=== PATIENT | male | born 1930 | race Caucasian/White ===

== ENCOUNTER 2017-04-20 11:57 | Inpatient (IN) | payer OTHER ==
[~2017-04-20] VITALS: Ht 175.3 cm; Wt 88.5 kg
[~2017-04-20 11:57] MED LIST: ALBUTEROL0.09 MG/A1 INH; ASPIRIN CHILDRE81 MG PO; ASPIRIN81 MG PO; ATORVASTATIN CA20 MG PO; CALCIUM + D3 E1 EACH PO; CELEXA40 M1 PO; DOXYCYCLINE100 M5 PO; ELIQUIS2.5 MG PO; FEROSUL325 M1 PO; FLEXERIL 5MG TAB5 MG PO; KETOCONAZOLE 2120 ML TOP; LEVOTHYROXIN0.137 MG PO; LEVOTHYROXINE88 MCG PO; LIPITOR40 M1 PO; MULTIPLE VITAM1 EAC2 PO; NATURAL IRON65 MG PO; NORVASC5 M1 PO; OMEPRAZOLE D/R20 MG PO; OMEPRAZOLE20 M2 PO; OXYCODONE5 M1 PO; PREDNISONE 20MG20 MG PO; PREDNISONE5 MG PO; PROS5 PO; RANEXA500 M1 PO; TERAZOSIN HCL5 M1 PO; TERAZOSIN HYDRO10 MG PO; TESSALON PERLE100 MG PO; TYLENOL WITH C1 EACH PO; VITAMIN B-121000 MC3 PO; XALATAN 0.50 GTT/1 B OPH
--- NOTE | 2017-04-20 12:13 | ED GENERAL ADULT ---
History of Present Illness General Chief Complaint: General Adult Stated Complaint: WEAKNESS,NAUSEA Source: patient, family Exam Limitations: poor historian Allergies Coded Allergies: rabeprazole (PER PT DOESNT REMEMBER 12/08/15) rosuvastatin (NERVOUS 12/08/15) simvastatin (NERVOUS 12/08/15) oxycodone (Intermediate, ITCHING 12/08/15) Reconcile Medications Apixaban (Eliquis) 2.5 MG TABLET 1 TAB PO BID BLOOD THINNER (Reported) Atorvastatin Calcium (Lipitor) 40 MG TABLET 0.5 TAB PO QPM CHOLESTEROL ( Reported) Calcium Carb & Citrate/Vit D3 (Calcium + D3 ER Tablet) 600 MG CALCIUM-500 UNIT TABLET.ER 1 TAB PO QPM SUPPLEMENT (Reported) Citalopram Hydrobromide (Celexa) 40 MG TABLET 1 TAB PO DAILY MENTAL HEALTH ( Reported) Cyanocobalamin (Vitamin B-12) 1,000 MCG TABLET 1 TAB PO DAILY VITAMIN SUPPORT (Reported) Ferrous Sulfate (Ferosul) 325 MG (65 MG IRON) TABLET 1 TAB PO DAILY SUPPLEMENT (Reported) Finasteride 5 MG TABLET 1 TAB PO DAILY PROSTATE (Reported) Furosemide 20 MG TABLET 1 TAB PO DAILY WATER RETENTION (Reported) Levothyroxine Sodium 88 MCG TABLET 2 TAB PO DAILY AC THYROID (Reported) Multivitamin (Multiple Vitamins) 1 EACH TABLET 1 TAB PO QPM SUPPLEMENT ( Reported) Omeprazole 20 MG CAPSULE.DR 1 CAP PO DAILY GI (Reported) Terazosin HCl 5 MG CAPSULE 1 CAP PO QPM BPH (Reported) Triage Nurses Notes Reviewed? yes Onset: Abrupt Duration: hour(s): Timing: recent history HPI: 04/20/17 12:36 PM 87-year-old man presents to the emergency department complaining of vomiting. The patient's son had gone away. When he came home he said he is sure that the patient's medications got not taken accurately. He seemed to be in his usual state of health however until this morning when he woke up he woke up unusually early. And then in the mid afternoon he started vomiting. He denies headache chest pain abdominal pain or other complaints. He is on Eliquis for A. fib. (YOSHI RAMOS DO) Vital Signs & Intake/Output Vital Signs & Intake/Output Vital Signs Date Time Temp Pulse Resp B/P B/P Pulse O2 O2 Flow FiO2 Mean Ox Delivery Rate 04/20 1954 97.8 65 20 160/70 95 Room Air 04/20 1935 97.5 55 18 147/68 96 Room Air Room Air 04/20 1828 97.3 57 18 152/48 94 Room Air 04/20 1635 97.4 56 18 118/60 96 Room Air Room Air 04/20 1452 97.5 53 18 129/60 94 Room Air Room Air 04/20 1310 48 18 181/76 96 Room Air 04/20 1213 97.2 48 20 194/83 99 Room Air Past History Travel History Traveled to [place] past 21 day No Medical History Any Pertinent Medical History? 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 No (YOSHI RAMOS DO) Review of Systems Review of Systems Constitutional: Reports: no symptoms. EENTM: Reports: no symptoms. Respiratory: Denies: short of breath. Cardiovascular: Denies: chest pain. GI: Reports: see HPI, vomiting. Denies: abdominal pain. Genitourinary: Reports: no symptoms. Musculoskeletal: Reports: no symptoms. Skin: Reports: no symptoms. Neurological/Psychological: Reports: no symptoms. Denies: headache. Hematologic/Endocrine: Reports: no symptoms. Immunologic/Allergic: Reports: no symptoms. All Other Systems: Reviewed and Negative (YOSHI RAMOS DO) Physical Exam Physical Exam General Appearance: alert, awake, anxious, moderate distress Head: atraumatic, normal appearance Eyes: Bilateral: normal appearance, PERRL, EOMI. Ears, Nose, Throat: normal pharynx, normal ENT inspection Neck: normal inspection, supple, full range of motion Respiratory: normal breath sounds, chest non-tender, no respiratory distress Cardiovascular: regular rate/rhythm Peripheral Pulses: 4+ radial (R), 4+ radial (L) Gastrointestinal: soft, non-tender Back: normal range of motion Extremities: no edema Neurologic/Psych: no motor/sensory deficits, awake, alert, oriented x 3 Skin: intact, normal color, warm/dry Core Measures ACS in differential dx? Yes ASA ordered for poss ACS? Yes-ordered CVA/TIA Diagnosis: No Severe Sepsis Present: No Septic Shock Present: No (YOSHI RAMOS DO) Progress Differential Diagnoses I considered the following diagnoses in my evaluation of the patient: [Non-ST segment elevation PA, and intestinal obstruction, pulmonary embolism] Initial ED EKG: BRADYCARDIA, LBBB, 1ST DEGREE AV BLOCK (YOSHI RAMOS DO) Plan of Care: Orders Procedure Date/time Status TROPONIN LEVEL 04/22 1535 Active Heart Healthy Diet 04/21 B Active CBC WITHOUT DIFFERENTIAL 04/21 0600 Active BASIC ELECTROLYTES PLUS BUN&CR 04/21 0600 Active TROPONIN LEVEL 04/21 0300 Active LIPID PANEL 04/21 0300 Active EKG 04/21 0300 Active TROPONIN LEVEL 04/20 2100 Active EKG 04/20 2100 Active Vital Signs 04/20 2016 Active Teach/Educate 04/20 2016 Active Pain Treatment and Response 04/20 2016 Active Nutritional Intake, Monitor 04/20 2016 Active Isolation 04/20 2016 Active Intake & Output 04/20 2016 Active Patient Care Conference 04/20 2016 Active Activity/Ambulation 04/20 2016 Active Change service to 04/20 1956 Active Code Status 04/20 1952 Active Change service to 04/20 1848 Active Pathway - chart 04/20 1833 Active Patient Data 04/20 1811 Active Intake & Output 04/20 1807 Active Patient Data 04/20 1738 Active EKG 04/20 1717 Active Admit to inpatient 04/20 1651 Active Vital Signs 04/20 1651 Active Code Status 04/20 1651 Complete TROPONIN LEVEL 04/20 1535 Complete EKG 04/20 1535 Active THYROID STIMULATING HORMONE 04/20 1245 Complete FREE T4 04/20 1245 Complete VITAMIN B12 04/20 1245 Complete Saline Lock 04/20 1244 Active TROPONIN LEVEL 04/20 1242 Complete COMPREHENSIVE METABOLIC PANEL 04/20 1242 Complete CBC WITHOUT DIFFERENTIAL 04/20 1242 Complete EKG 04/20 1200 Active TRC EVALUATION (GEN) 04/20 UNK Active Pathway - chart 04/20 UNK Active House Staff 04/20 UNK Active Lab Add-on Test 04/20 UNK Active VTE Mechanical Prophylaxis 04/20 UNK Active Vital Signs 04/20 UNK Active MISTAKE 04/20 UNK Active Precautions 04/20 UNK Active Intake & Output 04/20 UNK Active ECHOCARDIOGRAM 04/20 UNK Active Current Medications Sig/Lamar Start time Last Medication Dose Stop Time Status Admin Aspirin 81 MG DAILY 04/21 1000 AC (Aspirin) Calcium/Vitamin D 500 MG DAILY 04/21 1000 AC (Oscal-D 500MG (Osyter Shell)) Citalopram 40 MG DAILY 04/21 1000 AC Hydrobromide (Celexa) Cyanocobalamin 1,000 MCG DAILY 04/21 1000 AC (Vitamin B12) Ferrous Sulfate 325 MG DAILY 04/21 1000 AC (Feosol) Finasteride 5 MG DAILY 04/21 1000 AC (Proscar) Furosemide 20 MG DAILY 04/21 1000 AC (Lasix) Omeprazole 20 MG DAILY 04/21 1000 AC (Prilosec) Levothyroxine Sodium 0.176 MG DAILY AC 04/21 0700 AC (Synthroid) Apixaban 2.5 MG BID 04/20 2200 AC (Eliquis) Atorvastatin Calcium 20 MG QPM 04/20 2200 AC (Lipitor) Doxazosin Mesylate 2 MG AT BEDTIME 04/20 2200 AC (Cardura) Multivitamins 1 TAB QPM 04/20 2200 AC Therapeutic (Theragran-M Vitamins Tabs) Trimethobenzamide HCl 200 MG TID PRN 04/20 2015 AC 04/20 (Tigan) 2045 Acetaminophen 650 MG Q6P PRN 04/20 1845 AC (Tylenol) Sodium Chloride 1,000 ML ONCE ONE 04/20 1800 AC 04/20 (Normal Saline 0.9%) 04/21 0039 1806 Laboratory Tests 04/20/17 2055: Troponin I Pending 04/20/17 1514: Troponin I 0.18 *H 04/20/17 1245: Anion Gap 10, Estimated GFR 52 L, BUN/Creatinine Ratio 19.2, Glucose 133 H, Calcium 9.2, Total Bilirubin 1.3, AST 24, ALT 25, Alkaline Phosphatase 109, Troponin I 0.05, Total Protein 6.8, Albumin 3.8, Globulin 3.0, Albumin/Globulin Ratio 1.3, Vitamin B12 > 1000 H, TSH 0.161 L, Free T4 2.50 H, CBC w Diff NO MAN DIFF REQ, RBC 3.54 L, MCV 96.8 H, MCH 31.8 H, RDW 14.4, MPV 9.3, Gran % 76.5 H, Lymphocytes % 15.3 L, Monocytes % 6.9, Eosinophils % 0.9, Basophils % 0.4, Absolute Granulocytes 8.3 H, Absolute Lymphocytes 1.7, Absolute Monocytes 0.7 H, Absolute Eosinophils 0.1, Absolute Basophils 0, PUBS MCHC 32.9 L Departure Departure Disposition: STILL A PATIENT Condition: Stable Clinical Impression Primary Impression: Acute non-ST segment elevation myocardial infarction Secondary Impressions: Vomiting Referrals: JENELLE WORLEY,ILDA Enriquez (PCP/Family) Departure Forms: Customer Survey General Discharge Information Admission Note Spoke With: LAURA ACOSTA MD Documentation of Exam: Documentation of any treatments & extenuating circumstances including Concerns Regarding Discharge (functional status, medication knowledge or non-compliance, living conditions, etc.) that warrant an admission rather than observation: [The patient needs to be admitted to follow the serum troponin, inpatient echocardiogram, cardiology consultation, cardiac monitoring] 04/20/[address] Acosta who initially accepted the patient for telemetry admission. He later called me back and informed me he was unable to admit the patient due to his relationship with [place]. I spoke with the on-call contract administration specialist Dr. Lennon who said he would consult but to please admit the patient to medicine. I subsequently spoke with who accepted the patient for admission. We discussed his ongoing vomiting, the widened pulse pressure, and the small pericardial effusion. He will be held in the ED prior to going up to telemetry until Dr. Cartwright evaluates him in the emergency department. I did order a right upper quadrant ultrasound. He will need an in patient echocardiogram (YOSHI RAMOS DO) Critical Care Note Critical Care Note Critical Care Time: 30-74 min (YOSHI RAMOS DO)
[2017-04-20 12:52] LABS: ABSOLUTE BASOPHIL COUNT 0 /CUMM (0.0-0.2); ABSOLUTE EOSINOPHIL COUNT 0.1 /CUMM (0.0-0.7); ABSOLUTE GRANULOCYTE CT 8.3 /CUMM (1.4-6.5); ABSOLUTE LYMPH COUNT 1.7 /CUMM (1.2-3.4); ABSOLUTE MONOCYTE COUNT 0.7 /CUMM (0.10-0.60); BASOPHIL % 0.4 % (0.0-2.0); EOSINOPHIL % 0.9 % (0-5); GRANULOCYTE % 76.5 % (42.2-75.2); HEMATOCRIT 34.3 % (42-52); MEAN CORPUSCULAR HGB 31.8 PG (27.0-31.0); MEAN CORPUSCULAR HGB CONC 32.9 G/DL (33.0-37.0); MEAN CORPUSCULAR VOLUME 96.8 FL (80.0-94.0); MEAN PLATELET VOLUME 9.3 FL (7.4-10.4); PLATELET COUNT 171 /CUMM (130-400); RBC DISTRIBUTION WIDTH 14.4 % (11.5-14.5); RED BLOOD CELL CT 3.54 /CUMM (4.70-6.10); WHITE BLOOD CELL COUNT 10.8 /CUMM (4.8-10.8)
--- NOTE | 2017-04-20 13:11 | RADIOLOGY REPORT ---
EXAMINATION: XR PORTABLE CHEST CLINICAL INFORMATION: Vomiting evaluate for aspiration COMPARISON: CT chest November 2016 chest x-ray January 2017. TECHNIQUE: Portable frontal view of the chest was obtained. FINDINGS: Lungs clear. Cardiac silhouette unremarkable. Large hiatal hernia unchanged. Pulmonary vascularity normal. Calcification of the dorsal aorta. IMPRESSION: No acute disease. Large hiatal hernia unchanged
--- NOTE | 2017-04-20 14:13 | CT SCAN REPORT ---
EXAMINATION: CT ABDOMEN AND PELVIS WITHOUT CONTRAST CLINICAL INFORMATION: Vomiting to rule out obstruction. COMPARISON: Abdominal CT 08/15/2015 TECHNIQUE: Multidetector volumetric imaging was performed from the superior aspect of the liver through the pubic symphysis. Sagittal and coronal reformatted images were obtained on the technologist's workstation. FINDINGS: The lung bases are clear. Small pericardial effusion. Limited evaluation of the unenhanced liver, spleen, adrenal glands, and gallbladder reveals no definite abnormality. There is a stable appearing elongated cyst adjacent to the uncinate process, most likely a pseudocyst. The kidneys are symmetric in size without evidence of hydronephrosis or nephrolithiasis. As noted on the prior study there is a very large hiatal hernia the entire stomach an gastroduodenal junction located within the thoracic cavity. The large and small bowel are normal in caliber without evidence of mechanical obstruction. No focal inflammatory changes adjacent to the large or the small bowel. The appendix is normal. There is no free air and there is no intra-abdominal free fluid. No mesenteric or retroperitoneal adenopathy. There is aortoiliac atherosclerotic calcification Bladder diverticula along the upper aspect of the bladder have increased in size. Mild diffuse gallbladder wall thickening again noted. Prostate gland is elongated in the craniocaudal dimension. No pelvic adenopathy. No free fluid within the pelvis. There are no acute osseous abnormalities. Multilevel lumbar spondylosis. Small fat-containing umbilical hernia. IMPRESSION: - Stable appearing very large hiatal hernia with the entire stomach and the gastroduodenal junction located within the thoracic cavity. There is no bowel obstruction and there are no inflammatory changes surrounding the large or the small bowel - There is a stable appearing elongated cyst adjacent to the uncinate process, most likely a pseudocyst. - Bladder diverticula along the upper aspect of the bladder have increased in size. Mild diffuse gallbladder wall thickening again noted. Prostate gland is elongated in the craniocaudal dimension. - Small pericardial effusion. - Diverticulosis without evidence of acute diverticulitis.
[2017-04-20] MEDS ORDERED: FUROSEMIDE20 M1 PO (14:21)
[2017-04-20] MEDS ORDERED: ELIQUIS2.5 M1 PO (14:23)
[2017-04-20] MEDS ORDERED: FINASTERIDE5 M1 PO (14:25)
--- NOTE | 2017-04-20 18:00 | History & Physical ---
JJ WORELY,DEVYN 04/20/17 2749: General Information and HPI MD Statement: I have seen and personally examined GILES RIVERO and documented this H&P. The patient is a 87 year old M who presented with a patient stated chief complaint of []. Source of Information: patient, family, old records History of Present Illness: 87-year-old gentleman with PMH of hypertension, hyperlipidemia, hypothyroidism , BPH, hiatal hernia and chronic back pain , Afib on ELiquis, He presents to the emergency department complaining of repeated vomiting, nausea and weakness.The patient's son was a way for a while and when he came back he found out that the patient did not take his medication accurately .This morning around 9 AM, when the patient was on his way to a follow up visit to his urologist, the patient started to c/o of nausea and had 4 episodes of non bloody bilious vomiting. the patient also felt weak, lightheaded and sweaty.Also the patient reports feeling bloated for over one day. and He denies any accompanying diarrhea, abdominal pain, headache, or palpitation.The patient is seeing Dr. Horton(cardiology) for chest painn which was suspected to be due to angina but was found to be due to hiatal hernia. that was the reason why his Amlodipine and Ranexa were discontinued. The patient reports that he had finished 2 full courses of Amoxicillin ( last dose was taken last Sunday) for the treatment of UTI. his urinary symptoms of burning micturition had significantly improved after antibiotics vitals on admission: BP 118/60, RR: 18, Pulse : 56, saturating 96 on room air Allergies/Medications Allergies: Coded Allergies: rabeprazole (PER PT DOESNT REMEMBER 12/08/15) rosuvastatin (NERVOUS 12/08/15) simvastatin (NERVOUS 12/08/15) oxycodone (Intermediate, ITCHING 12/08/15) Home Med list Apixaban (Eliquis) 2.5 MG TABLET 1 TAB PO BID BLOOD THINNER (Reported) Atorvastatin Calcium (Lipitor) 40 MG TABLET 0.5 TAB PO QPM CHOLESTEROL ( Reported) Calcium Carb & Citrate/Vit D3 (Calcium + D3 ER Tablet) 600 MG CALCIUM-500 UNIT TABLET.ER 1 TAB PO QPM SUPPLEMENT (Reported) Citalopram Hydrobromide (Celexa) 40 MG TABLET 1 TAB PO DAILY MENTAL HEALTH ( Reported) Cyanocobalamin (Vitamin B-12) 1,000 MCG TABLET 1 TAB PO DAILY VITAMIN SUPPORT (Reported) Ferrous Sulfate (Ferosul) 325 MG (65 MG IRON) TABLET 1 TAB PO DAILY SUPPLEMENT (Reported) Finasteride 5 MG TABLET 1 TAB PO DAILY PROSTATE (Reported) Furosemide 20 MG TABLET 1 TAB PO DAILY WATER RETENTION (Reported) Levothyroxine Sodium 88 MCG TABLET 2 TAB PO DAILY AC THYROID (Reported) Multivitamin (Multiple Vitamins) 1 EACH TABLET 1 TAB PO QPM SUPPLEMENT ( Reported) Omeprazole 20 MG CAPSULE.DR 1 CAP PO DAILY GI (Reported) Terazosin HCl 5 MG CAPSULE 1 CAP PO QPM BPH (Reported) Past History Travel History Traveled to [place] past 21 day No Medical History Neurological: NONE EENT: NONE Cardiovascular: AFIB, hypertension, hyperlipidemia, CARDIAC BLOCKAGES Respiratory: NONE Gastrointestinal: GERD, hiatal hernia Hepatic: NONE Renal: PROSTATITIS Musculoskeletal: NONE Psychiatric: NONE Endocrine: hyperthyroidism Blood Disorders: NONE 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 EENTM: Denies: no symptoms. Cardiovascular: Denies: no symptoms. Respiratory: Reports: cough, short of breath. GI: Reports: bloating, nausea, vomiting. Genitourinary: Reports: see HPI. Neurological/Psychological: Denies: no symptoms. Exam & Diagnostic Data Last 24 Hrs of Vital Signs/I&O Vital Signs Date Time Temp Pulse Resp B/P B/P Pulse O2 O2 Flow FiO2 Mean Ox Delivery Rate 04/20 1954 97.8 65 20 160/70 95 Room Air 04/20 1935 97.5 55 18 147/68 96 Room Air Room Air 04/20 1828 97.3 57 18 152/48 94 Room Air 04/20 1635 97.4 56 18 118/60 96 Room Air Room Air 04/20 1452 97.5 53 18 129/60 94 Room Air Room Air 04/20 1310 48 18 181/76 96 Room Air 04/20 1213 97.2 48 20 194/83 99 Room Air Intake & Output 04/20 1600 04/20 0800 04/20 0000 Intake Total Output Total Balance Patient 200 lb Weight Physical Exam General Appearance Alert, Oriented X3, Cooperative, No Acute Distress Skin No Rashes, No Breakdown, No Significant Lesion Skin Temp/Moisture Exam: Warm/Dry HEENT Atraumatic, PERRLA, EOMI, Mucous Membr. moist/pink Neck Supple, No JVD Cardiovascular Regular Rate, Normal S1, Normal S2, ejection systolic murmur in aortic area Lungs Clear to Auscultation, Normal Air Movement Abdomen Normal Bowel Sounds, Soft, No Tenderness Neurological Normal Speech, Strength at 5/5 X4 Ext, Normal Tone, Sensation Intact Assessment/Plan Assessment: 87-year-old gentleman with PMH of hypertension, hyperlipidemia, hypothyroidism , BPH, hiatal hernia and chronic back pain , Afib on ELiquis, He presents to the emergency department complaining of repeated vomiting, nausea and weakness.The patient's son was a way for a while and when he came back he found out that the patient did not take his medication accurately .This morning around 9 AM, when the patient was on his way to a follow up visit to his urologist, the patient started to c/o of nausea and had 4 episodes of non bloody bilious vomiting. the patient also felt weak, lightheaded and sweaty.Also the patient reports feeling bloated for over one day. and He denies any accompanying diarrhea, abdominal pain, headache, or palpitation.The patient is seeing Dr. Horton(cardiology) for chest painn which was suspected to be due to angina but was found to be due to hiatal hernia. that was the reason why his Amlodipine and Ranexa were discontinued. The patient reports that he had finished 2 full courses of Amoxicillin ( last dose was taken last Sunday) for the treatment of UTI. his urinary symptoms of burning micturition had significantly improved after antibiotics vitals on admission: BP 118/60, RR: 18, Pulse : 56, saturating 96 on room air Pertininent labs: H&H: 11.3/34.3, wbcs 10,800, BUN: 25, Cr: 1.3, Na 141, K 4.4, trops:0.05, 0.18 EKG: NSR, 1st degree heart block. CXR: Large hiatal hernia which is unchanged from before. CT abdomen and pelvis: large hiatal hernia with the entire stomach in the thoracic cavity, stable appearing enlarged cyst near the uncinate process, most likely pseudocyst. no bowel obstruction, bladder diverticulum, small pericardial effusion, enlarged prostste. U/S : no cholilithiasis or cholicystitis. #ACS Vs Vasovagal attacks: -the patient nausea, vomting and lightheadedness might be due to either vasovagal or atypical presentation of ACS. -continue to trend troponin and EKG, if trops rises might need to start IV Heparin - echo to assess the wall motion abnormalities. - continue home meds of Eliquis , Aspirin. - Tigan tid PRN - Cardiology consult appreciated. # Hiatal Hernia: Keep on aspiration precaution. - GIT consult appreciated. - continue home med of Omeprazole. #History of A fib: continue home meds of ELiquis. # Hypothyroidism: - check TSH and Ft4. continue home meds of Levothyroxin 0.176 mg. # BPH: continue home meds of Fenasteride and Terazocin. Code: DNR/DNI Diet: Heart healthy DVT prophylaxix: pharmacological( eliquis) As Ranked By This Provider Problem List: 1. Hypothyroid 2. BPH (benign prostatic hyperplasia) 3. Hypertension 4. Hiatal hernia 5. Macrocytic anemia 6. Elevated troponin 7. Family history of colon cancer Core Measures/Miscellaneous Acute Coronary Syndrome ACS Diagnosis: Yes Last Known EF % 60 LILIBETH/ARB For EF <40% No No LILIBETH/ARB d/t EF>60 ASA W/I 24hr of admit Yes Beta-Hernando W/I 24hrs No No Beta-Hernando d/t Bradycardia Currently on Statin Yes Cerebrovascular Accident CVA/TIA Diagnosis: No Congestive Heart Failure CHF Diagnosis: No VTE (View Protocol) VTE Risk Factors: Age > 40 [facility] prophylaxis d/t: No contraindications No VTE Pharm Prophylaxis d/t: No contraindications VTE Diagnosis: No VTE Type: NONE VTE Confirmed by (Test): NONE Sepsis (View Protocol) Severe Sepsis Present: No Septic Shock Septic Shock Present: No Miscellaneous Documentation Attending Case Discussed With: ROSSY HAMMONDS MDAdalid Primary Care Physician: JENELLE WORLEY,ILDA Enriquez Patient sees these Specialists 1.cardiology 2.Urology 3.Gastroentrology Level of Patient Care: Telemetry MUKUND WHITMAN 04/20/17 1810: Resident Review Statement Resident Statement: examined this patient, discussed with leadership program internship, agreed with leadership program internship, discussed with family, reviewed EMR data (avail), discussed with nursing , discussed with case mgmt, reviewed images, amended to note Other Findings: A 70-year-old male with a past medical history of coronary artery disease, BPH, depression, hypothyroidism, atrial fibrillation on Eliquis, presents to the ER with chief complaint of nausea, vomiting. According to the patient and his son Mr. Garrett was in his usual state of health up until this morning at 9 AM when he was going for routine office visit to his urologist for urinary tract infection. He states that he woke up fine this morning at around 7 and around 1930 he was getting out of the car to go to doctor's office when he had the sudden onset of nausea, episode of nonbloody vomitus, lightheadedness, became diaphoretic, however, did not pass out, denies any chest discomfort, palpitations, loss of consciousness, chest pain, any heartburn-like symptoms. He does endorse having some mild shortness of breath. He denies any dyspnea on exertion, however orthopnea cannot be evaluated as he usually uses 2 pillows to sleep at night because of his chronic hiatal hernia. He denies any fever, chills, diarrhea, constipation however does endorse bloating of his abdomen and states that his last bowel movement was yesterday and he may be passing gas. He denies any abdominal discomfort. He endorses bringing up whatever he had for breakfast this morning which comprised of waffles and muffin. He denies any blood in his vomitus. He denies any history of heart attack in the past. He states that he follows up with Dr. Horton in [place] who is his social service agency director and was taken off of Ranexa and amlodipine back in November after his angina-like symptoms at that time were attributed to his hernia. Of note patient has never had a cardiac cath. The patient lives by himself with his son helping him out with his medications however he was away on vacation and states that his dad may have been taking his medications incorrectly as the medication box did not really have metastases aligned in the manner in which he used to take. He is pretty much independent in terms of his ADLs. Of note patient has been experiencing some burning micturition going on for the past 4 weeks. He is was prescribed amoxicillin for about 7 days with 2 courses H the last finishing this past Sunday. He was a former smoker and quit smoking about 55 years ago. He does endorse having a couple of hero on a daily basis. He denies any recreational drug use. He denies being allergic to any medication except Percocet which gives him slight nausea. Of note there is no history of early cardiac in the family. Patient denies having any similar symptoms in the past. Vitals at the time of admission blood pressure 118/60, respiratory rate of 18, pulse 56, afebrile saturating 96% on room air. On physical exam he is alert, oriented 3 and in no acute distress sitting comfortably in bed. HEENT revealed PERRLA, moist mucous membranes. Examination of the neck did not reveal an elevated JVD, cervical lymphadenopathy. Cardiovascular exam pertinent for normal S1, S2, no grade 3 x 6 holosystolic murmur heard best at the right sternal border. Respiratory exam revealed chest clear to auscultation bilaterally. Abdominal exam reveals an abdomen that was distended, soft, nontender with normal bowel sounds, Saini's negative, CVA tenderness negative. Examination of the lower extremities revealed trace edema. Neuro exam was grossly unremarkable. Labs pertinent for macrocytic anemia with an H&H of 11.3/34.3, platelet count 1 71,000, normal white blood cell count of 10,800. Serum chemistries revealed a sodium of 141, potassium of 4.4, BUN 25 mg to 1.3. Serum glucose is elevated to 133. LFTs unremarkable with an AST/AST of 24/25, total bili 1.3. First set of troponin 0.05 with second set 0.18. Chest x-ray was done to evaluate for aspiration but showed no acute disease, large hiatal hernia that was unchanged. EKG showed NSR, HR: 85, 1st degree AV block, LBBB (unchanged from prior), no ST- T changes CT abdomen and pelvis was done which showed stable appearing very large hiatal hernia with entire stomach and gastroduodenal junction located within the thoracic cavity, no bowel obstruction and no inflammatory changes surrounding the small bowel, stable appearing elongated cyst adjacent to the uncinate process most likely a pseudocyst with bladder diverticula along the upper aspect of the bladder. Mild diffuse gallbladder wall thickening is noted, prostate gland is elongated. There is small pericardial effusion with diverticulosis without any evidence of acute diverticulitis. Echocardiogram in May 2015 showed normal left ventricular ejection fraction more than 60% with normal wall motion. In the ER received 300 mg of when necessary aspirin, Reglan 10 mg IV 1, Zofran 4 mg IV 2 and normal saline thousand mls 1. Assessment and plan Admit patient to telemetry given her elevated troponins #Diaphoretic episode Most likely vasovagal the mediated (given hiatal hernia) versus acute coronary syndrome (given elevated troponins and atypical-like symptoms) Will rule out ACS with troponins and EKG at 9 PM and 3 AM Echocardiogram to rule out regional wall motion abnormalities Continue on Eliquis for now Follow-up troponin at 9 PM. If continues to elevate we'll consider starting on heparin Cardiology consult with Rasheed Marshall MD Continue aspirin 81 mg daily Tigan 3 times a day when necessary for nausea #Hiatal hernia Maintain on aspiration precautions GI consult with Dr. Betts in a.m. Ultrasound abdomen to rule out for cholelithiasis given vomiting. Of note patient's Saini's sign is negative. Continue omeprazole 40 mg daily #History of atrial fibrillation Continue on Eliquis 2.5 mg twice a day #BPH Continue on finasteride and terazosin. #Hypothyroidism Follow-up TSH and free T4 Continue on levothyroxine 0.176 mg daily - DVT prophylaxis Eliquis 2.5 twice a day Diet Heart healthy CODE STATUS DNR/DNI CASSIUS WORLEY, [facility] 04/20/171956: Attending MD Review Statement Attending Statement Attending MD Statement: examined this patient, discuss w/resident/PA/PLANNING SPECIALIST, agreed w/resident/PA/PLANNING SPECIALIST, discussed with family Attending Assessment/Plan: 87 yo M with h/o Pafib on eliquis, HTN, HLD, s/p radioactive iodine for hyperthyroidism currently on replacement, CKD stage 3B, GERD, hiatal hernia, BPH , intraductal papillary mucinous neoplasm of pancreasis brought in for evaluation of an episode of nausea, vomiting, diaphoresis and lightheadedness. This morning around 9 am, patient was at Urologist office (for evaluation of recurrent UTI, recently treated with Amox) when he suddenly felt nauseous, was diaphoretic, felt lightheaded and vomited. His son rescheduled the appointment and took patient home. While at home, patient continued to feel lightheaded and vomited a few times, so his son brought him to the ER for further evaluation. Patient reports eating a small waffle and cup of coffee this AM. He has longstanding h/o hiatal hernia, was evaluated by GI, suggested surgery but was not considered a candidate per Cardiology. Patient has been following aspiration precautions (uses 2 pillows at night), eats small meals and avoid heavy meals before bedtime. Last EGD: (2013): Large hiatal hernia, large gastric polyps. According to information provided by family: He had a stress test few years ago that was ?abnormal and Direct Marketing Executive (Dr. Horton @ [place]) did not suggest cardiac cath given his renal dysfunction. Patient has had c/o exertional dyspnea and was evaluated by Dr. York, who suggested that it was cardiac rather than pulmonary in origin. Patient was placed on Ranexa for angina-equivalent symptom - exertional dyspnea, but recently was taken off it as there was no improvement in his symptoms. Patient has also been on lasix for CHF (not sure if diastolic or systolic). Vitals are stable except for bradycardia (48- 55) and hypertension. Labs: macrocytic anemia, H/H 11.3/ 34.3, BUN 24, creat 1.3, glucose 133, trop 0.05 --> 0.18 --> 0.31, B12 > 1000, TSH 0.161, Free T4 2.50. CXR: lungs clear, large hiatal hernia. CT abd/pelvis: large hiatal hernia with entire stomach and gastroduodenal junction in thoracic cavity, cyst adjacent to uncinate process stable, bladder diverticula, mild diffuse GB wall thickening, small pericardial effusion, diverticulosis. EKG: sinus bradycardia, LBBB, first degree AV block ( chronic), no new changes. RUQ ultrasound: no e/o cholelithiasis or cholecystitis. Echo (2015): EF 60%. 1. Nausea, vomiting, diaphoresis with lightheadedness in the setting of large hiatal hernia (no cholelithiasis or cholecystitis), with elevated troponins likely demand ischemia vs. NSTEMI. Cannot rule out symptomatic bradycardia (HR was in 40-50's), patient not on beta blockers. Patient is on synthroid replacement after HALL for hyperthyroidism, TSH is low and free T4 is high indicating need to cut back on synthroid. Tele admit, chech orthostats, monitor for arrhythmias, trend troponin and monitor for EKG changes, obtain Echo, patient is anticoagulated on eliquis, will continue eliquis, aspirin given in ER, will continue, Cardio consult (Dr. Marshall covering for Dr. Acosta (who covers Dr. Horton's patients)). Maintain aspiration precautions. GI (Dr. Betts) has evaluated patient. Patient was not deemed a candidate for hiatal hernia surgery by Dr. Leo previously. Will continue symptomatic treatment with anti-emetics and IV fluids. Given his age and co-morbidities, no urgent intervention needed, will hold off on surgical evaluation for HH. Continue PPI. Will cut back on synthroid dose from 0.176 to 0.150 mg, need to recheck TFTs in 4 weeks. Obtain Endo consult in AM. DVT ppx Eliquis. DNR/I. Plan was discussed with patient, family (2 sons and granddaughter) at bedside.
[2017-04-20 19:54] VITALS: BP 160/70
--- NOTE | 2017-04-20 20:02 | ULTRASOUND REPORT ---
EXAMINATION: US ABDOMEN LIMITED CLINICAL INFORMATION: Vomiting. Rule out cholelithiasis.. COMPARISON: CT of the abdomen and pelvis from earlier the same day TECHNIQUE: Real-time imaging of the right upper quadrant abdominal viscera. Per technologist note the exam was limited due to body habitus and overlying bowel gas. FINDINGS: PANCREAS: Nonvisualized. LIVER: The left lobe of the liver could not be visualized due to overlying bowel gas. No gross abnormalities in the right lobe of the liver. GALLBLADDER: Normal. The gallbladder is physiologically distended without evidence of stones, sludge, polyps, wall thickening or pericholecystic fluid. COMMON BILE DUCT: Normal in caliber measuring 0.4 cm in diameter. RIGHT KIDNEY: Normal. No hydronephrosis. No renal calculi or focal parenchymal lesions. The kidney measures 9.8 cm in maximum dimension. FREE FLUID: None. IMPRESSION: Limited examination without evidence of cholelithiasis or cholecystitis.
--- NOTE | 2017-04-20 22:09 | Cons- Gastroenterology ---
General Information and HPI Consulting Request Date of Consult: 04/20/17 Requested By: ANDREIA WORLEY,[facility] Reason for Consult: Evaluate hiatal hernia, nausea in setting of mild troponin leak (*Please note, the patient was previously evaluated for hiatal hernia repair by Dr. Leo & felt to be too high risk). Source of Information: patient, old records Exam Limitations: no limitations History of Present Illness: Mr. Musa Aguilar is an 87-year-old male, DNR/DNI, ASHD, HTN, HLD, hyperT4 (post HALL), BPH, chronic back pain, renal insufficiency, PAF on Eliquis, last seen in the office 09/13/2015, with a history of IPMN at the uncinate process of the pancreas, post endoscopic ultrasound x2 which have been stable, last one 2011, per Dr. Orr. He previously had normal CA19-9 levels. 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 He is followed by numerous physicians including Dr. Rob Black for primary care in [place], [place]. He also sees Dr. Ruby Jacobs at the [facility] for primary care. Additionally, he sees Dr. Brittany Eduardo for rheumatology, Dr. Leo for surgery, and has switched to Dr. Murali Horton for cardiology. He sees a urologist, whose name he can't recall. He has had endoscopic ultrasounds by Dr. Ekaterina Orr at [place], as previously stated. *He was just admitted to Dr. Cartwright's service at [place] 04/20/17, with Dr. Marshall to consult for cardiology. The patient presented to the [place] ER at 11:57 a.m., HTN, bradycardic, afebrile, with BP 194/83, P 48, T 97.2, R 20, T 97.2, O2 sat RA 99%, post n & v, treated with IV Zofran & ASA, as * troponin 0.05 -> 0.18 -> 0.31. Apparently, his son was away and he did not take his medications properly. He noted nausea & non-bloody, non-bilious vomiting 9 a.m. on 04/20/2017, when going to a routine urology office visit for a UTI. There was no associated chest pain, palpitations, headache, or abdominal pain. He did become lightheaded and diaphoretic, but did not lose consciousness. There may have been some minimal shortness of breath. He uses 2 pillows at night to sleep , because of his chronic hiatal hernia. He denied any fevers, chills, diarrhea, or constipation, but he does have chronic bloating; again probably related to his hiatal hernia and/or rectus diastasis. He did have some reflux symptoms, and regurgitated some waffles and muffins from this morning.There may be some early satiety, as the majority of his stomach is in his chest cavity, due to his large hiatal hernia. He claimed his [place] patient ambassador, Dr. Horton felt that in 11/2016, his atypical symptoms were from his hiatal herna. Apparently, the patient has never had a cardiac cath. The patient has had dysuria for the past month, and was prescribed a one-week of Amoxicillin 2 courses, finishing this about 1 week HEAD START DIRECTOR. *Most recent GI workup: 06/11/2014: Combined barium swallow/UGI series, showing large hiatal hernia with patulous GE junction, increased reflux, without esophagitis or stricture. 06/23/2014: EGD to the second portion of the duodenum- *large hiatal hernia 10 cm from 30-40 cm, presbyesophagus, scattered large gastric polyps at the base of the hiatal hernia and proximal stomach, some of them pedunculated and approaching 2 cm, left intact without biopsy or attempt at snare polypectomy, for fear of aspiration. There was some residual food in the hiatal hernia pouch. The pyloric was patent without gastric outlet obstruction. Normal ampulla. No peptic ulcer disease. *The patient was evaluated by Dr. Leo for laparoscopic hiatal hernia repair and was felt to be very high risk for this. I feel it is too dangerous to attempt to remove his gastric polyps endoscopically, unless his hiatal hernia is fixed first. He is on Omeprazole 20 mg a day, which helps his reflux. However, this is most likely exacerbating his gastric polyps. Since last here, he had MRCP repeated x2, 07/01/2014 and again 07/22/2015, showing stable multiple pancreatic cysts, consistent with probable IPMN without change. 2014: CT scan of the abdomen and pelvis without IV contrast per [place] [facility]- large hiatal hernia with stable 4.7 cm cystic lesion at the uncinate process, diverticulosis without diverticulitis, no retroperineal bleed, urinary bladder diverticulum. 03/31/2010: Colonoscopy- normal colonic mucosa with left sided diverticula. Simultaneous EGD then on 03/31/2010, showed mild esophagitis without Rojo's esophagus, large 8 cm hiatal hernia, Z-line at 32 cm, and benign inflammatory gastric polyps, H. pylori negative. Additionally, the patient has a rectus diastasis greater than ventral hernia The patient was admitted to [facility] 06/07/2015 to 06/09/2015, for new onset atrial fibrillation. He then had paroxysmal atrial fibrillation and was on Eliquis. Again, I previously felt it was too dangerous to try to attempt repeat EGD regarding his large gastric polyps without having the large hiatal hernia repaired first, and apparently the patient was not a candidate for this. He rarely gets dysphagia to solids versus early satiety from his large hiatal hernia, but tolerates pills and liquids uneventfully. Most likely, this is from a combination of his large hiatal hernia that is having intermittent obstruction and/or perhaps his presbyesophagus. He often gets a full feeling under the xiphoid process after eating. Most likely I feel that this is from his enlarging hiatal hernia. Again, his esophageal lumen was patent on the last study of 06/23/2014. In addition to this, the patient was fairly adamant about wanting a colonoscopy repeated, as he was overdue for this in 03/2015, despite his advanced age. 01/20/16: Colonoscopy to after TriLyte prep- moderate left-sided diverticula, several small polyps, NBI positive, completely removed via cold biopsies- 6 mm sessile right colon benign TA, and 2 adjacent 5 mm sessile left colon benign TA at 50 cm. Consider follow up surveillance colonoscopy in 3 years (i.e.- 01/2019) , regarding the history of adenomas & positive family history of colon Ca, however the patient's advanced age will have to be taken into account, along with the overall risk:benefit ratio. *A repeat MRCP regarding IPMN for 07/2016 was deferred by the patient, as it was a moot point, as the patient did not seem to be a surgical candidate for this. There were no plans for readdressing the gastric polyps, unless the large hiatal hernia was fixed, and the patient was felt to be too high risk for this. 04/20/17: Admission labs- WBC 10.8, H/H 11.3/34.3, MCV 96.8, PLT 171, glu 133, BUN/Cr 25/1.3, GFR 52, Na 141, K 4.4, HCO3 25, AG 10, Ca 9.2, albumin 3.8, globulin 3.0, TBil 1.3, alk phos 109, AST 24, ALT 25, *troponin .05, 0.18, 0.31, elevated FT4 2.50, low TSH 0.161, B12 > 1000, PT 11.8, INR 1.13. 04/20/17: EKG- NSR @ 60, LAE, LBBB, 1st degree AVB with NE.308, occ unifocal PVC. 04/20/17: PORTABLE CHEST XRAY- No acute disease. Large hiatal hernia unchanged. 04/20/17: CT ABDOMEN AND PELVIS WITHOUT CONTRAST- - Stable appearing very large hiatal hernia with the entire stomach and the gastroduodenal junction located within the thoracic cavity. There is no bowel obstruction and there are no inflammatory changes surrounding the large or the small bowel. Small fat-containing umbilical hernia. - There is a stable appearing elongated cyst adjacent to the uncinate process, most likely a pseudocyst. - Bladder diverticula along the upper aspect of the bladder have increased in size. Mild diffuse gallbladder wall thickening again noted. Prostate gland is elongated in the craniocaudal dimension. - Small pericardial effusion. Clear lung bases. - Diverticulosis without evidence of acute diverticulitis. 04/20/17: US ABDOMEN (RUQ) LIMITED- Limited examination without evidence of cholelithiasis or cholecystitis. Normal CBD 4 mm. Allergies/Medications Allergies: Coded Allergies: rabeprazole (PER PT DOESNT REMEMBER 12/08/15) rosuvastatin (NERVOUS 12/08/15) simvastatin (NERVOUS 12/08/15) oxycodone (Intermediate, ITCHING 12/08/15) Home Med List: Apixaban (Eliquis) 2.5 MG TABLET 1 TAB PO BID BLOOD THINNER (Reported) Atorvastatin Calcium (Lipitor) 40 MG TABLET 0.5 TAB PO QPM CHOLESTEROL ( Reported) Calcium Carb & Citrate/Vit D3 (Calcium + D3 ER Tablet) 600 MG CALCIUM-500 UNIT TABLET.ER 1 TAB PO QPM SUPPLEMENT (Reported) Citalopram Hydrobromide (Celexa) 40 MG TABLET 1 TAB PO DAILY MENTAL HEALTH ( Reported) Cyanocobalamin (Vitamin B-12) 1,000 MCG TABLET 1 TAB PO DAILY VITAMIN SUPPORT (Reported) Ferrous Sulfate (Ferosul) 325 MG (65 MG IRON) TABLET 1 TAB PO DAILY SUPPLEMENT (Reported) Finasteride 5 MG TABLET 1 TAB PO DAILY PROSTATE (Reported) Furosemide 20 MG TABLET 1 TAB PO DAILY WATER RETENTION (Reported) Levothyroxine Sodium 88 MCG TABLET 2 TAB PO DAILY AC THYROID (Reported) Multivitamin (Multiple Vitamins) 1 EACH TABLET 1 TAB PO QPM SUPPLEMENT ( Reported) Omeprazole 20 MG CAPSULE.DR 1 CAP PO DAILY GI (Reported) Terazosin HCl 5 MG CAPSULE 1 CAP PO QPM BPH (Reported) Current Medications: Current Medications Sig/Lamar Start time Last Medication Dose Route Stop Time Status Admin Acetaminophen 650 MG Q6P PRN 04/20 1845 AC PO Apixaban 2.5 MG BID 04/20 2200 AC 04/20 PO 2214 Aspirin 81 MG DAILY 04/21 1000 AC PO Aspirin 300 MG ONCE ONE 04/20 1630 DC 04/20 NE 04/20 1631 1701 Atorvastatin Calcium 20 MG QPM 04/20 2200 AC PO Calcium/Vitamin D 500 MG DAILY 04/21 1000 AC PO Citalopram 40 MG DAILY 04/21 1000 AC Hydrobromide PO Cyanocobalamin 1,000 MCG DAILY 04/21 1000 AC PO Doxazosin Mesylate 2 MG AT BEDTIME 04/20 2200 AC 04/20 PO 2214 Ferrous Sulfate 325 MG DAILY 04/21 1000 AC PO Finasteride 5 MG DAILY 04/21 1000 AC PO Furosemide 20 MG DAILY 04/21 1000 AC PO Levothyroxine Sodium 0.176 MG DAILY AC 04/21 0700 AC PO Metoclopramide HCl 10 MG ONCE ONE 04/20 1800 DC 04/20 IV 04/20 1801 1806 Metoclopramide HCl 0 .STK-MED ONE 04/20 1751 DC .ROUTE Multivitamins 1 TAB QPM 04/20 2200 AC 04/20 Therapeutic PO 2214 Omeprazole 20 MG DAILY 04/21 1000 AC PO Ondansetron HCl 4 MG ONCE ONE 04/20 1400 DC 04/20 IV 04/20 1401 1411 Ondansetron HCl 0 .STK-MED ONE 04/20 1333 DC .ROUTE Ondansetron HCl 4 MG ONCE ONE 04/20 1245 DC 04/20 IV 04/20 1246 1246 Ondansetron HCl 0 .STK-MED ONE 04/20 1235 DC .ROUTE Sodium Chloride 1,000 ML ONCE ONE 04/20 1800 AC 04/20 IV 04/21 0039 1806 Trimethobenzamide HCl 200 MG TID PRN 04/20 2015 AC 04/20 IM 2044 Past History Travel History Traveled to [place] past 21 day No Medical History Blood Transfusion Hx: No Neurological: NONE EENT: NONE Cardiovascular: AFIB (PAF), hypertension, hyperlipidemia, CARDIAC BLOCKAGES Respiratory: NONE Gastrointestinal: GERD, hiatal hernia (large), umbilical hernia, diverticulosis coli, colon adenoma, pancreatic cyst- IPMN Hepatic: NONE Renal: chronic kidney disease, PROSTATITIS/BPH, Hx UTI, bladder diverticulum Musculoskeletal: chronic back pain, degen joint disease Psychiatric: anxiety (mild), depression Endocrine: hyperthyroidism (post HALL), osteopenia Blood Disorders: anemia (macrocytic) Cancer(s): 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 FATHER, , Age 37; Cause: Accident at workplace. BROTHER, ; Cause: Arteriosclerotic heart disease (ASHD). BROTHER, ; Cause: Arteriosclerotic heart disease (ASHD). BROTHER, ; Cause: Arteriosclerotic heart disease (ASHD). SISTER, ; Cause: CVA (cerebral vascular accident). MOTHER (anemia). , Age 73; Cause: CRF (chronic renal failure). Relation not specified for: colon cancer FH: myocardial infarction FH: pancreatic cancer FHx: stroke Psychosocial History Where Do You Live? Home Who Do You Live With? self Services at Home: Home Health Aide, Nursing Primary Language: Amharic Smoking Status: Never Smoked ETOH Use: occasional use (rare) Illicit Drug Use: denies illicit drug use Living Will? yes Power of Dog Obedience Instructor/HCP? yes Name of POA/HCP: Pt's 2 sons,Nick & [id number] Other Social History: since 01/05/10. Lives alone. 2 sons, [employer] (Jair & Nick)- both POA. No cigarettes. Rare EtOH. No drugs. Retired from [employer]. Functional Ability ADLs Independent: dressing, eating, toileting, bathing. Ambulation: independent IADLs Independent: shopping, housework, finances, food prep, telephone, transportation. Needs Assist: medication admin (son helps set up pills). Employment History Employment: Retired Profession/Employer: [employer] ECHO Results (as available) Date of last Echo 06/07/15 EF% 60 Review of Systems Review of Systems: Full 14 point ROS otherwise noncontributory & as above. Review of Systems Constitutional: Reports: weakness. Denies: chills, diaphoresis, fever, malaise, unexplained weight loss. EENTM: Reports: hearing changes (mild). Denies: blurred vision, double vision, visual changes, eye pain, eye drainage, eye tearing, icterus, ear discharge, ear pain, ear redness, nasal congestion, epistaxis, nasal pain, throat pain, throat swelling, mouth pain, tooth pain. Cardiovascular: Reports: orthopena (sleeps upright due to HH). Denies: chest pain, edema, palpitations, peripheral edema, syncope. Respiratory: Reports: short of breath (minimal). Denies: cough, hemoptysis, orthopnea, sputum production, stridor, wheezing. GI: Reports: nausea (resolved), vomiting (resolved). Denies: abdominal pain, bloating, constipation, diarrhea, distention, bowel incontinence, melena, bloody stool, changes in stool, steatorrhea. Genitourinary: Reports: dysuria (mild). Denies: discharge, frequency, hematuria, hesitation, nocturia, pain, urgency. Musculoskeletal: Reports: back pain (chronic ). Denies: gout, joint pain, joint swelling, muscle pain, muscle stiffness, neck pain. Skin: Denies: cysts, change in skin color, change in hair/nails, dryness, erythema, jaundice, lesions, lymphangitis, lumps, moles, rash. Neurological/Psychological: Reports: anxiety, depressed, weakness. Denies: ataxia, cognitive dysfunction, confusion, dementia, emotional problems, headache, numbness, paresthesia, pre- existing deficit, petit mal seizures, tingling, tremors, tonic-clonic seizures, unable to move lower ext, unable to move upper ext. Hematologic/Endocrine: Denies: bruising, bleeding, polyuria, polydipsia. Immunologic/Allergic: Denies: see HPI, splenectomy, HIV/AIDS, lymphadenopathy. All Other Systems: Reviewed and Negative Exam & Diagnostic Data Vital Signs and I&O Vital Signs Date Time Temp Pulse Resp B/P B/P Pulse O2 O2 Flow FiO2 Mean Ox Delivery Rate 04/20 1954 97.8 65 20 160/70 95 Room Air 04/20 1935 97.5 55 18 147/68 96 Room Air Room Air 04/20 1828 97.3 57 18 152/48 94 Room Air 04/20 1635 97.4 56 18 118/60 96 Room Air Room Air 04/20 1452 97.5 53 18 129/60 94 Room Air Room Air 04/20 1310 48 18 181/76 96 Room Air 04/20 1213 97.2 48 20 194/83 99 Room Air Intake & Output 04/20 1600 04/20 0400 04/19 1600 04/19 0400 04/18 1600 04/18 0400 Intake Total Output Total Balance Patient 200 lb Weight Physical Exam: Well-developed, well-nourished, elderly male, in no apparent distress. Sclera anicteric. Conjunctiva pink. No lid lag. No exopthalmos. Oropharynx clear. No oral thrush. No aphthous ulcers. False uppers. Partial lowers. There is no adenopathy, thyromegaly, or JVD. No peripheral stigmata of inflammatory bowel disease or chronic liver disease on exam. No spiders on the anterior chest wall. No gynecomastia. No CVA tenderness. No definite point spine tenderness. Mild lordosis. Lungs: clear to A&P. Heart exam: regular rate rhythm, S1 and S2, with I/ systolic murmur. Abdominal exam: normal bowel sounds, soft belly, nontender, without guarding or rebound. Rectus diastasis. Small reducible umbilical hernia, otherwise, no mass. No organomegaly. Negative Saini sign. No fluid shift. No pulsatile mass. No epigastric bruit. Digital rectal exam by myself: 04/20/17: brown stool, OB- negative, without mass. Normal sphincter tone. Smooth enlarged prostate, without nodule. No external hemorrhoids. No fissure. Extremities: without cyanosisor clubbing. Trace pedal edema B/L. Positive DJD. B/L TKR scars. No palpable cords. Distal pulses 1+ bilaterally. DTRs 1+ bilaterally. Alert and oriented x 3. No tremor. Motor 5/5 B/L. A detailed exam for peripheral neuropathy was deferred. Results Pertinent Lab Results: Laboratory Tests 04/20 04/20 04/20 2055 1514 1245 Chemistry Sodium (137 - 145 mmol/L) 141 Potassium (3.5 - 5.1 mmol/L) 4.4 Chloride (98 - 107 mmol/L) 106 Carbon Dioxide (22 - 30 mmol/L) 25 Anion Gap (5 - 16) 10 BUN (9 - 20 mg/dL) 25 H Creatinine (0.7 - 1.2 mg/dL) 1.3 H Estimated GFR (>60 ml/min) 52 L BUN/Creatinine Ratio (7 - 25 %) 19.2 Glucose (65 - 99 mg/dL) 133 H Calcium (8.4 - 10.2 mg/dL) 9.2 Total Bilirubin (0.2 - 1.3 mg/dL) 1.3 AST (17 - 59 U/L) 24 ALT (21 - 72 U/L) 25 Alkaline Phosphatase (< 127 U/L) 109 Troponin I (<0.11 ng/ml) 0.31 *H 0.18 *H 0.05 Total Protein (6.3 - 8.2 g/dL) 6.8 Albumin (3.5 - 5.0 g/dL) 3.8 Globulin (1.9 - 4.2 gm/dL) 3.0 Albumin/Globulin Ratio (1.1 - 2.2 %) 1.3 Vitamin B12 (239 - 931 pg/mL) > 1000 H TSH (0.270 - 4.200 uIU/mL) 0.161 L Free T4 (0.85 - 1.93 ng/dL) 2.50 H Coagulation PT (9.4 - 12.5 SEC) 11.8 INR (0.90 - 1.17) 1.13 Hematology CBC w Diff NO MAN DIFF REQ WBC (4.8 - 10.8 /CUMM) 10.8 RBC (4.70 - 6.10 /CUMM) 3.54 L Hgb (14.0 - 18.0 G/DL) 11.3 L Hct (42 - 52 %) 34.3 L MCV (80.0 - 94.0 FL) 96.8 H MCH (27.0 - 31.0 PG) 31.8 H RDW (11.5 - 14.5 %) 14.4 Plt Count (130 - 400 /CUMM) 171 MPV (7.4 - 10.4 FL) 9.3 Gran % (42.2 - 75.2 %) 76.5 H Lymphocytes % (20.5 - 51.1 %) 15.3 L Monocytes % (1.7 - 9.3 %) 6.9 Eosinophils % (0 - 5 %) 0.9 Basophils % (0.0 - 2.0 %) 0.4 Absolute Granulocytes (1.4 - 6.5 /CUMM) 8.3 H Absolute Lymphocytes (1.2 - 3.4 /CUMM) 1.7 Absolute Monocytes (0.10 - 0.60 /CUMM) 0.7 H Absolute Eosinophils (0.0 - 0.7 /CUMM) 0.1 Absolute Basophils (0.0 - 0.2 /CUMM) 0 PUBS MCHC (33.0 - 37.0 G/DL) 32.9 L Imaging/Other Studies: 04/20/17: EKG- NSR @ 60, LAE, LBBB, 1st degree AVB with NE.308, occ unifocal PVC. 04/20/17: PORTABLE CHEST XRAY- No acute disease. Large hiatal hernia unchanged. 04/20/17: CT ABDOMEN AND PELVIS WITHOUT CONTRAST- - Stable appearing very large hiatal hernia with the entire stomach and the gastroduodenal junction located within the thoracic cavity. There is no bowel obstruction and there are no inflammatory changes surrounding the large or the small bowel. Small fat-containing umbilical hernia. - There is a stable appearing elongated cyst adjacent to the uncinate process, most likely a pseudocyst. - Bladder diverticula along the upper aspect of the bladder have increased in size. Mild diffuse gallbladder wall thickening again noted. Prostate gland is elongated in the craniocaudal dimension. - Small pericardial effusion. Clear lung bases. - Diverticulosis without evidence of acute diverticulitis. 04/20/17: US ABDOMEN (RUQ) LIMITED- Limited examination without evidence of cholelithiasis or cholecystitis. Normal CBD 4 mm. Assessment/Plan Assessment/Recommendations: Mr. Musa Aguilar is an 87-year-old male, DNR/DNI, ASHD, HTN, HLD, hyperT4 (post HALL), BPH, chronic back pain, renal insufficiency, PAF on Eliquis, last seen in the office 09/13/2015, with a history of IPMN at the uncinate process of the pancreas, post endoscopic ultrasound x2 which have been stable, last one 2011, per Dr. Orr. He previously had normal CA19-9 levels. 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 He is followed by numerous physicians including Dr. Rob Black for primary care in [place], [place]. He also sees Dr. Ruby Jacobs at the [facility] for primary care. Additionally, he sees Dr. Brittany Eduardo for rheumatology, Dr. Leo for surgery, and has switched to Dr. Murali Horton for cardiology. He sees a urologist, whose name he can't recall. He has had endoscopic ultrasounds by Dr. Ekaterina Orr at [place], as previously stated. *He was just admitted to Dr. Cartwright's service at [place] 04/20/17, with Dr. Marshall to consult for cardiology. The patient presented to the [place] ER at 11:57 a.m., HTN, bradycardic, afebrile, with BP 194/83, P 48, T 97.2, R 20, T 97.2, O2 sat RA 99%, post n & v, treated with IV Zofran & ASA, as * troponin 0.05 -> 0.18 -> 0.31. Apparently, his son was away and he did not take his medications properly. He noted nausea & non-bloody, non-bilious vomiting 9 a.m. on 04/20/2017, when going to a routine urology office visit for a UTI. There was no associated chest pain, palpitations, headache, or abdominal pain. He did become lightheaded and diaphoretic, but did not lose consciousness. There may have been some minimal shortness of breath. He uses 2 pillows at night to sleep , because of his chronic hiatal hernia. He denied any fevers, chills, diarrhea, or constipation, but he does have chronic bloating; again probably related to his hiatal hernia and/or rectus diastasis. He did have some reflux symptoms, and regurgitated some waffles and muffins from this morning.There may be some early satiety, as the majority of his stomach is in his chest cavity, due to his large hiatal hernia. He claimed his [place] patient ambassador, Dr. Horton felt that in 11/2016, his atypical symptoms were from his hiatal herna. Apparently, the patient has never had a cardiac cath. The patient has had dysuria for the past month, and was prescribed a one-week of Amoxicillin 2 courses, finishing this about 1 week HEAD START DIRECTOR. *Most recent GI workup: 06/11/2014: Combined barium swallow/UGI series, showing large hiatal hernia with patulous GE junction, increased reflux, without esophagitis or stricture. 06/23/2014: EGD to the second portion of the duodenum- *large hiatal hernia 10 cm from 30-40 cm, presbyesophagus, scattered large gastric polyps at the base of the hiatal hernia and proximal stomach, some of them pedunculated and approaching 2 cm, left intact without biopsy or attempt at snare polypectomy, for fear of aspiration. There was some residual food in the hiatal hernia pouch. The pyloric was patent without gastric outlet obstruction. Normal ampulla. No peptic ulcer disease. *The patient was evaluated by Dr. Leo for laparoscopic hiatal hernia repair and was felt to be very high risk for this. I feel it is too dangerous to attempt to remove his gastric polyps endoscopically, unless his hiatal hernia is fixed first. He is on Omeprazole 20 mg a day, which helps his reflux. However, this is most likely exacerbating his gastric polyps. Since last here, he had MRCP repeated x2, 07/01/2014 and again 07/22/2015, showing stable multiple pancreatic cysts, consistent with probable IPMN without change. 2014: CT scan of the abdomen and pelvis without IV contrast per [place] [facility]- large hiatal hernia with stable 4.7 cm cystic lesion at the uncinate process, diverticulosis without diverticulitis, no retroperineal bleed, urinary bladder diverticulum. 03/31/2010: Colonoscopy- normal colonic mucosa with left sided diverticula. Simultaneous EGD then on 03/31/2010, showed mild esophagitis without Rojo's esophagus, large 8 cm hiatal hernia, Z-line at 32 cm, and benign inflammatory gastric polyps, H. pylori negative. Additionally, the patient has a rectus diastasis greater than ventral hernia The patient was admitted to [facility] 06/07/2015 to 06/09/2015, for new onset atrial fibrillation. He then had paroxysmal atrial fibrillation and was on Eliquis. Again, I previously felt it was too dangerous to try to attempt repeat EGD regarding his large gastric polyps without having the large hiatal hernia repaired first, and apparently the patient was not a candidate for this. He rarely gets dysphagia to solids versus early satiety from his large hiatal hernia, but tolerates pills and liquids uneventfully. Most likely, this is from a combination of his large hiatal hernia that is having intermittent obstruction and/or perhaps his presbyesophagus. He often gets a full feeling under the xiphoid process after eating. Most likely I feel that this is from his enlarging hiatal hernia. Again, his esophageal lumen was patent on the last study of 06/23/2014. In addition to this, the patient was fairly adamant about wanting a colonoscopy repeated, as he was overdue for this in 03/2015, despite his advanced age. 01/20/16: Colonoscopy to TI after TriLyte prep- moderate left-sided diverticula, several small polyps, NBI positive, completely removed via cold biopsies- 6 mm sessile right colon benign TA, and 2 adjacent 5 mm sessile left colon benign TA at 50 cm. Consider follow up surveillance colonoscopy in 3 years (i.e.- 01/2019) , regarding the history of adenomas & positive family history of colon Ca, however the patient's advanced age will have to be taken into account, along with the overall risk:benefit ratio. *A repeat MRCP regarding IPMN for 07/2016 was deferred by the patient, as it was a moot point, as the patient did not seem to be a surgical candidate for this. There were no plans for readdressing the gastric polyps, unless the large hiatal hernia was fixed, and the patient was felt to be too high risk for this. 04/20/17: Admission labs- WBC 10.8, H/H 11.3/34.3, MCV 96.8, PLT 171, glu 133, BUN/Cr 25/1.3, GFR 52, Na 141, K 4.4, HCO3 25, AG 10, Ca 9.2, albumin 3.8, globulin 3.0, TBil 1.3, alk phos 109, AST 24, ALT 25, *troponin .05, 0.18, 0.31, elevated FT4 2.50, low TSH 0.161, B12 > 1000, PT 11.8, INR 1.13. 04/20/17: EKG- NSR @ 60, LAE, LBBB, 1st degree AVB with NE.308, occ unifocal PVC. 04/20/17: PORTABLE CHEST XRAY- No acute disease. Large hiatal hernia unchanged. 04/20/17: CT ABDOMEN AND PELVIS WITHOUT CONTRAST- - Stable appearing very large hiatal hernia with the entire stomach and the gastroduodenal junction located within the thoracic cavity. There is no bowel obstruction and there are no inflammatory changes surrounding the large or the small bowel. Small fat-containing umbilical hernia. - There is a stable appearing elongated cyst adjacent to the uncinate process, most likely a pseudocyst. - Bladder diverticula along the upper aspect of the bladder have increased in size. Mild diffuse gallbladder wall thickening again noted. Prostate gland is elongated in the craniocaudal dimension. - Small pericardial effusion. Clear lung bases. - Diverticulosis without evidence of acute diverticulitis. 04/20/17: US ABDOMEN (RUQ) LIMITED- Limited examination without evidence of cholelithiasis or cholecystitis. Normal CBD 4 mm. *I agree that the patient's symptoms on admission were probably vasovagally mediated, from nausea and vomiting, probably secondary to the well-known large hiatal hernia. This was previously felt not to be operable, per Dr. Leo. His troponin elevation is noted, and ACS will be ruled out. 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 *Repeat MRCP was deferred in 07/2016, in view of the patient's advanced age, as he would not be a surgical candidate anyway. The patient's intermittent dysphagia is undoubtedly from the large hiatal hernia, perhaps with intermittent obstruction, & possibly with a component of presbyesophagus. He also has underlying GERD. His rectus diastases and small reducible umbilical hernia are noted, but probably not contributory. He has known multiple large gastric polyps (previously benign), but repeat EGD was deferred for fear of aspiration, as his hiatal hernia could not be surgically fixed. His incidental history of colon adenomas, diverticular disease, and family history of colon cancer are noted. *SUGGEST: Continue PPI. Zofran as needed. Aspiration precautions. Keep HOB elevated with feeds Advance diet as tolerated. Rule out ACS (? NSTEMI), with serial troponins and EKG. Await cardiology input for echocardiogram, etc. Continue Eliquis for afib, & ASA per cardiology. Regulate hyperT4. Consider surgical re-evaluation for laparoscopic hiatal hernia repair, but the patient was previously felt to be too high risk by Dr. Leo. DVT prophylaxis. Doubt need for follow-up colonoscopy in 01/2019, despite history of colon adenoma and family history of colon cancer, in view of advanced age and numerous comorbidities. Unfortunately, there is not much GI can do endoscopically, regarding his hiatal hernia. Further inpatient GI follow up as needed. The above was discussed with the medical housestaff this p.m. Problem List: 1. Hiatal hernia 2. Vomiting 3. GERD (gastroesophageal reflux disease) 4. Cyst of pancreas 5. Dysphagia 6. Multiple gastric polyps 7. Macrocytic anemia 8. Rectus diastasis 9. Umbilical hernia without obstruction and without gangrene 10. Diverticulosis of colon 11. Family history of colon cancer 12. Elevated troponin Copies To: JOSHUA WORLEY,EKATERINA; CEDRICK WORLEY,CAMMY Medina; JENELLE WORLEY,ROB Enriquez; ANDREIA WORLEY,KEN; CASSIUS WORLEY,CARY; CHRIS WORLEY,JUAN LEO MD,ALEX Salmeron Consult Acknowledgment - Thank you for your consult request.
[2017-04-20 22:13] LABS: PT 11.8 SEC (9.4-12.5)
[2017-04-20 23:30] VITALS: BP 132/60
[2017-04-21 03:51] LABS: ABSOLUTE BASOPHIL COUNT 0 /CUMM (0.0-0.2); ABSOLUTE EOSINOPHIL COUNT 0.1 /CUMM (0.0-0.7); ABSOLUTE LYMPH COUNT 1.9 /CUMM (1.2-3.4); ABSOLUTE MONOCYTE COUNT 0.8 /CUMM (0.10-0.60); BASOPHIL % 0.1 % (0.0-2.0); EOSINOPHIL % 1.2 % (0-5); GRANULOCYTE % 68.1 % (42.2-75.2); HEMATOCRIT 30.8 % (42-52); MEAN CORPUSCULAR HGB 32.2 PG (27.0-31.0); MEAN CORPUSCULAR VOLUME 97.3 FL (80.0-94.0); MEAN PLATELET VOLUME 9.4 FL (7.4-10.4); PLATELET COUNT 157 /CUMM (130-400); RBC DISTRIBUTION WIDTH 14.1 % (11.5-14.5); RED BLOOD CELL CT 3.17 /CUMM (4.70-6.10); WHITE BLOOD CELL COUNT 8.8 /CUMM (4.8-10.8)
--- NOTE | 2017-04-21 04:37 | Admission Certification ---
Admission Certification Certification Statement - As attending physician, I certify that at the time of - admission, based on clinical presentation, severity of - symptoms, need for further diagnostic testing and - therapeutic interventions, and risk of adverse outcomes - without in-hospital treatment, in my clinical assessment, - this patient requires an acute hospital stay for a minimum - of two nights or longer. I have also considered psychsocial - factors such as support system, advanced age, financial - issues, cognitive issues, and failed out-patient treatments, - past re-admission history, safety of patient, and lack of - compliance as applicable. Specific rationale supporting this admission is: Elevated troponin, large hiatal hernia, bradycardia requiring further evaluation.
--- NOTE | 2017-04-21 05:46 | PN- Housestaff ---
See Addendum Subjective Follow-up For: - Elevated troponins - Hiatal hernia - Diaphoresis - Thyroid dysfunction Complaints: no complaints Tele-Events Since Last Visit: SB 50-60's. No events. Subjective: Patient seen and examined at bedside. He states taht he wasn't able to sleep well last night as the TV was on the whole time. Denies chest discomfort, nausa, vomiting, chest pain, dizziness, lightheadedness. Offers no other complaints. Review of Systems Constitutional: Denies: chills, fever, malaise. EENTM: Denies: visual changes. Cardiovascular: Denies: chest pain, orthopena, palpitations. Respiratory: Denies: cough, orthopnea, short of breath. Gastrointestinal: Denies: abdominal pain, nausea, vomiting. Genitourinary: Denies: frequency. Neurological/Psychological: Denies: headache, numbness, tingling, tremors. Objective Last 24 Hrs of Vital Signs/I&O Vital Signs Date Time Temp Pulse Resp B/P B/P Pulse O2 O2 Flow FiO2 Mean Ox Delivery Rate 04/20 2330 98.2 66 20 132/60 96 Room Air 04/20 2224 Room Air Room Air 04/20 1954 97.8 65 20 160/70 95 Room Air 04/20 1935 97.5 55 18 147/68 96 Room Air Room Air 04/20 1828 97.3 57 18 152/48 94 Room Air 04/20 1635 97.4 56 18 118/60 96 Room Air Room Air 04/20 1452 97.5 53 18 129/60 94 Room Air Room Air 04/20 1310 48 18 181/76 96 Room Air 04/20 1213 97.2 48 20 194/83 99 Room Air Intake & Output 04/21 0800 04/21 0000 04/20 1600 Intake Total 420 Output Total 275 Balance 145 Intake, IV 300 Intake, Oral 120 Output, Urine 275 Patient 195 lb 200 lb Weight Weight Estimated Measurement Method Physical Exam General Appearance: Alert, Oriented X3, Cooperative, No Acute Distress HEENT: Atraumatic, PERRLA, EOMI, Mucous Membr. moist/pink Neck: Supple, No JVD, No LAD Cardiovascular: Normal S1, Normal S2, garde III/ systolic murmur heard best at RSB Lungs: Clear to Auscultation, Normal Air Movement Abdomen: Normal Bowel Sounds, Soft, No Tenderness Neurological: Normal Speech, Strength at 5/5 X4 Ext, Normal Tone, Sensation Intact, Cranial Nerves 3-12 NL, Reflexes 2+ Extremities: No Edema Vascular: Normal Pulses, Pulses Symmetrical Current Medications: Current Medications Sig/Lamar Start time Last Medication Dose Route Stop Time Status Admin Acetaminophen 650 MG Q6P PRN 04/20 1845 AC PO Apixaban 2.5 MG BID 04/20 2200 AC 04/20 PO 2214 Aspirin 81 MG DAILY 04/21 1000 AC PO Aspirin 300 MG ONCE ONE 04/20 1630 DC 04/20 DC 04/20 1631 1701 Atorvastatin Calcium 20 MG QPM 04/20 2200 AC 04/20 PO 2317 Calcium/Vitamin D 500 MG DAILY 04/21 1000 AC PO Citalopram 40 MG DAILY 04/21 1000 AC Hydrobromide PO Cyanocobalamin 1,000 MCG DAILY 04/21 1000 AC PO Doxazosin Mesylate 2 MG AT BEDTIME 04/20 2200 AC 04/20 PO 2214 Ferrous Sulfate 325 MG DAILY 04/21 1000 AC PO Finasteride 5 MG DAILY 04/21 1000 AC PO Furosemide 20 MG DAILY 04/21 1000 AC PO Levothyroxine Sodium 0.176 MG DAILY AC 04/21 0700 DC PO Levothyroxine Sodium 0.137 MG DAILY AC 04/21 0700 DC PO Levothyroxine Sodium 0.15 MG DAILY AC 04/21 0700 AC PO Metoclopramide HCl 10 MG ONCE ONE 04/20 1800 DC 04/20 IV 04/20 1801 1806 Metoclopramide HCl 0 .STK-MED ONE 04/20 1751 DC .ROUTE Multivitamins 1 TAB QPM 04/20 2200 AC 04/20 Therapeutic PO 2214 Omeprazole 20 MG DAILY 04/21 1000 AC PO Ondansetron HCl 4 MG ONCE ONE 04/20 1400 DC 04/20 IV 04/20 1401 1411 Ondansetron HCl 0 .STK-MED ONE 04/20 1333 DC .ROUTE Ondansetron HCl 4 MG ONCE ONE 04/20 1245 DC 04/20 IV 04/20 1246 1246 Ondansetron HCl 0 .STK-MED ONE 04/20 1235 DC .ROUTE Sodium Chloride 1,000 ML Q13H 04/21 0500 AC IV 04/21 1759 Sodium Chloride 1,000 ML ONCE ONE 04/20 1800 DC 04/20 IV 04/21 0039 1806 Trimethobenzamide HCl 200 MG TID PRN 04/20 2015 AC 04/20 IM 2044 Last 24 Hrs of Lab/Liam Results Last 24 Hrs of Labs/Mics: Laboratory Tests 04/21/17314: Troponin I 0.40 *H 04/21/17 031: Triglycerides 95, Cholesterol 184, LDL Cholesterol, Calc 102, HDL Cholesterol 63 H, Cholesterol/HDL Ratio 3 04/21/17 031: Anion Gap 7, Estimated GFR 52 L, BUN/Creatinine Ratio 18.5, CBC w Diff NO MAN DIFF REQ, RBC 3.17 L, MCV 97.3 H, MCH 32.2 H, RDW 14.1, MPV 9.4, Gran % 68.1, Lymphocytes % 21.3, Monocytes % 9.3, Eosinophils % 1.2, Basophils % 0.1, Absolute Granulocytes 6.0, Absolute Lymphocytes 1.9, Absolute Monocytes 0.8 H, Absolute Eosinophils 0.1, Absolute Basophils 0, PUBS MCHC 33.0 04/20/172054: Troponin I 0.31 *H 04/20/17 1514: Troponin I 0.18 *H 04/20/17 1245: Anion Gap 10, Estimated GFR 52 L, BUN/Creatinine Ratio 19.2, Glucose 133 H, Calcium 9.2, Total Bilirubin 1.3, AST 24, ALT 25, Alkaline Phosphatase 109, Troponin I 0.05, Total Protein 6.8, Albumin 3.8, Globulin 3.0, Albumin/Globulin Ratio 1.3, Vitamin B12 > 1000 H, TSH 0.161 L, Free T4 2.50 H, PT 11.8, INR 1.13, CBC w Diff NO MAN DIFF REQ, RBC 3.54 L, MCV 96.8 H, MCH 31.8 H, RDW 14.4, MPV 9.3, Gran % 76.5 H, Lymphocytes % 15.3 L, Monocytes % 6.9, Eosinophils % 0.9, Basophils % 0.4, Absolute Granulocytes 8.3 H, Absolute Lymphocytes 1.7, Absolute Monocytes 0.7 H, Absolute Eosinophils 0.1, Absolute Basophils 0, PUBS MCHC 32.9 L Orders Radiology Findings: SERVICE DATE: 04/20/17-1855 EXAM TYPE: US - US-LIMITED ABDOMEN FINDINGS: PANCREAS: Nonvisualized. LIVER: The left lobe of the liver could not be visualized due to overlying bowel gas. No gross abnormalities in the right lobe of the liver. GALLBLADDER: Normal. The gallbladder is physiologically distended without evidence of stones, sludge, polyps, wall thickening or pericholecystic fluid. COMMON BILE DUCT: Normal in caliber measuring 0.4 cm in diameter. RIGHT KIDNEY: Normal. No hydronephrosis. No renal calculi or focal parenchymal lesions. The kidney measures 9.8 cm in maximum dimension. FREE FLUID: None. IMPRESSION: Limited examination without evidence of cholelithiasis or cholecystitis. Assessment/Plan Assessment: A 70-year-old male with a past medical history of coronary artery disease, BPH, depression, hypothyroidism, atrial fibrillation on Eliquis, presents to the ER with chief complaint of nausea, vomiting. Vitals at the time of admission blood pressure 118/60, respiratory rate of 18, pulse 56, afebrile saturating 96% on room air. On physical exam he is alert, oriented 3 and in no acute distress sitting comfortably in bed. HEENT revealed PERRLA, moist mucous membranes. Examination of the neck did not reveal an elevated JVD, cervical lymphadenopathy. Cardiovascular exam pertinent for normal S1, S2, no grade 3 x 6 holosystolic murmur heard best at the right sternal border. Respiratory exam revealed chest clear to auscultation bilaterally. Abdominal exam reveals an abdomen that was distended, soft, nontender with normal bowel sounds, Saini's negative, CVA tenderness negative. Examination of the lower extremities revealed trace edema. Neuro exam was grossly unremarkable. Labs pertinent for macrocytic anemia with an H&H of 11.3/34.3, platelet count 1 71,000, normal white blood cell count of 10,800. Serum chemistries revealed a sodium of 141, potassium of 4.4, BUN 25 mg to 1.3. Serum glucose is elevated to 133. LFTs unremarkable with an AST/AST of 24/25, total bili 1.3. First set of troponin 0.05 with second set 0.18. Chest x-ray was done to evaluate for aspiration but showed no acute disease, large hiatal hernia that was unchanged. CT abdomen and pelvis was done which showed stable appearing very large hiatal hernia with entire stomach and gastroduodenal junction located within the thoracic cavity, no bowel obstruction and no inflammatory changes surrounding the small bowel, stable appearing elongated cyst adjacent to the uncinate process most likely a pseudocyst with bladder diverticula along the upper aspect of the bladder. Mild diffuse gallbladder wall thickening is noted, prostate gland is elongated. There is small pericardial effusion with diverticulosis without any evidence of acute diverticulitis. Echocardiogram in May 2015 showed normal left ventricular ejection fraction more than 60% with normal wall motion. In the ER received 300 mg of when necessary aspirin, Reglan 10 mg IV 1, Zofran 4 mg IV 2 and normal saline thousand mls 1. Assessment and plan He was admitetd to Telemetry and the following problems were addressed: #Diaphoretic episode Most likely vasovagal the mediated (given hiatal hernia) versus acute coronary syndrome (given elevated troponins and atypical-like symptoms - unliley) Trops trending up - more like a plateau effect given CKD. EKG showed no ischemic changes. Echocardiogram to rule out regional wall motion abnormalities Continue Eliquis for now Follow-up troponin at 9 AM. If continues to elevate we'll consider starting on heparin Cardiology consult with Rasheed Marshall MD Continue aspirin 81 mg daily Tigan 3 times a day when necessary for nausea #Hiatal hernia Maintain on aspiration precautions Patient is not a surgical candidate. He was seen by vilma Roche consider surgical re-evaluation for laparoscopic hiatal hernia repair, but the patient was previously felt to be too high risk by Dr. Leo. Given advanced age and comorbidities, doubt patient will nbeneift frm colonoscopy. Ultrasound abdomen was done which rule out for cholelithiasis given vomiting. Of note patient's Saini's sign was negative. Continue omeprazole 40 mg daily #History of atrial fibrillation Continue on Eliquis 2.5 mg twice a day #BPH Continue on finasteride and terazosin. #Hypothyroidism TSH was low and FT4 elevated. -Decreased his home levothryoxine dose to 150mcg daily. Endo conult in AM. F/U recs - DVT prophylaxis Eliquis 2.5 twice a day Diet Heart healthy CODE STATUS DNR/DNI Problem List: 1. Elevated troponin Pain Ratin Pain Location: n/a Pain Goal: Remain pain free Pain Plan: tyelnol Tomorrow's Labs & Rationales: cbc - H&H CARL Fernandez
[2017-04-21 06:52] VITALS: BP 120/56
--- NOTE | 2017-04-21 10:12 | Cons- Endocrinology ---
General Information and HPI Consulting Request Date of Consult: 04/21/17 Requested By: medical team Reason for Consult: Abnormal thyroid tests Source of Information: patient, family, old records Exam Limitations: no limitations History of Present Illness: This 87-year-old male was brought to the emergency room because repeated nausea vomiting weakness and diaphoresis. The patient was treated for a recent urinary tract infection and apparently was on the way to see his urologist when he developed nausea and vomiting. He did get lightheaded and had diaphoresis as mentioned above. He denied any diarrhea. The patient has a known history of a large hiatal hernia with his stomach occupying his chest. The patient's thyroid tests were found to be of abnormal on admission with a TSH which is low at 0.161 and a free T4 which is elevated at 2.5. At home the patient was taking levothyroxin to 88 mg tablets which would amount to 176 mg each day. He states he has been on this dose for a long time. He does notice feeling somewhat anxious at times and some tremor of his hands. Allergies/Medications Allergies: Coded Allergies: rabeprazole (PER PT DOESNT REMEMBER 12/08/15) rosuvastatin (NERVOUS 12/08/15) simvastatin (NERVOUS 12/08/15) oxycodone (Intermediate, ITCHING 12/08/15) Home Med List: Apixaban (Eliquis) 2.5 MG TABLET 1 TAB PO BID BLOOD THINNER (Reported) Atorvastatin Calcium (Lipitor) 40 MG TABLET 0.5 TAB PO QPM CHOLESTEROL ( Reported) Calcium Carb & Citrate/Vit D3 (Calcium + D3 ER Tablet) 600 MG CALCIUM-500 UNIT TABLET.ER 1 TAB PO QPM SUPPLEMENT (Reported) Citalopram Hydrobromide (Celexa) 40 MG TABLET 1 TAB PO DAILY MENTAL HEALTH ( Reported) Cyanocobalamin (Vitamin B-12) 1,000 MCG TABLET 1 TAB PO DAILY VITAMIN SUPPORT (Reported) Ferrous Sulfate (Ferosul) 325 MG (65 MG IRON) TABLET 1 TAB PO DAILY SUPPLEMENT (Reported) Finasteride 5 MG TABLET 1 TAB PO DAILY PROSTATE (Reported) Furosemide 20 MG TABLET 1 TAB PO DAILY WATER RETENTION (Reported) Levothyroxine Sodium 88 MCG TABLET 2 TAB PO DAILY AC THYROID (Reported) Multivitamin (Multiple Vitamins) 1 EACH TABLET 1 TAB PO QPM SUPPLEMENT ( Reported) Omeprazole 20 MG CAPSULE.DR 1 CAP PO DAILY GI (Reported) Terazosin HCl 5 MG CAPSULE 1 CAP PO QPM BPH (Reported) Review of Systems Review of Systems Constitutional: Denies: chills, fever. Cardiovascular: Denies: chest pain. Respiratory: Denies: short of breath. Genitourinary: Denies: dysuria. Skin: Reports: no symptoms. Past History Travel History Traveled to [place] past 21 day No Medical History Blood Transfusion Hx: No Neurological: NONE EENT: NONE Cardiovascular: AFIB (PAF), hypertension, hyperlipidemia, CARDIAC BLOCKAGES Respiratory: NONE Gastrointestinal: GERD, hiatal hernia (large), umbilical hernia, diverticulosis coli colon adenoma pancreatic cyst- IPMN Hepatic: NONE Renal: chronic kidney disease, PROSTATITIS/BPH Hx UTI bladder diverticulum Musculoskeletal: chronic back pain, degen joint disease Psychiatric: anxiety (mild), depression Endocrine: hyperthyroidism (post HALL), osteopenia Blood Disorders: anemia (macrocytic) Cancer(s): 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 FATHER, , Age 37; Cause: Accident at workplace. BROTHER, ; Cause: Arteriosclerotic heart disease (ASHD). BROTHER, ; Cause: Arteriosclerotic heart disease (ASHD). BROTHER, ; Cause: Arteriosclerotic heart disease (ASHD). SISTER, ; Cause: CVA (cerebral vascular accident). MOTHER (anemia). , Age 73; Cause: CRF (chronic renal failure). Relation not specified for: colon cancer FH: myocardial infarction FH: pancreatic cancer FHx: stroke Psychosocial History Where Do You Live? Home Who Do You Live With? self Services at Home: Home Health Aide, Nursing Primary Language: Maltese Smoking Status: Never Smoked ETOH Use: occasional use (rare) Illicit Drug Use: denies illicit drug use Living Will? yes Power of Detailer Furniture/HCP? yes Name of POA/HCP: Pt's 2 Nick barragan & [phone] Other Social History: since 01/05/10. Lives alone. 2 sons, [employer] (Jair & Nick)- both POA. No cigarettes. Rare EtOH. No drugs. Retired from [employer]. Functional Ability ADLs Independent: dressing, eating, toileting, bathing. Ambulation: independent IADLs Independent: shopping, housework, finances, food prep, telephone, transportation. Needs Assist: medication admin (son helps set up pills). Employment History Employment: Retired Profession/Employer: [employer] ECHO Results (as available) Date of last Echo 06/07/15 EF% 60 Exam & Diagnostic Data Last 24 Hrs of Vital Signs/I&O Vital Signs Date Time Temp Pulse Resp B/P B/P Pulse O2 O2 Flow FiO2 Mean Ox Delivery Rate 04/21 0652 98.2 66 20 120/56 92 Room Air 07 2330 98.2 66 20 132/60 96 Room Air / 2224 Room Air Room Air 04/20 1954 97.8 65 20 160/70 95 Room Air 07/14 1935 97.5 55 18 147/68 96 Room Air Room Air 07/14 1828 97.3 57 18 152/48 94 Room Air 07/14 1635 97.4 56 18 118/60 96 Room Air Room Air 07 1452 97.5 53 18 129/60 94 Room Air Room Air 07/14 1310 48 18 181/76 96 Room Air 07/14 1213 97.2 48 20 194/83 99 Room Air Intake & Output 04/21 1600 04/21 0800 04/21 0000 Intake Total 0 420 Output Total 1150 275 Balance -1150 145 Intake, IV 0 300 Intake, Oral 0 120 Output, Urine 1150 275 Patient 195 lb Weight Weight Estimated Measurement Method Vital Signs Date Time Temp Pulse Resp B/P B/P Pulse O2 O2 Flow FiO2 Mean Ox Delivery Rate 04/21 0652 98.2 66 20 120/56 92 Room Air 07 2330 98.2 66 20 132/60 96 Room Air 07/14 2224 Room Air Room Air 07/14 1954 97.8 65 20 160/70 95 Room Air 07/14 1935 97.5 55 18 147/68 96 Room Air Room Air 07/14 1828 97.3 57 18 152/48 94 Room Air 07/14 1635 97.4 56 18 118/60 96 Room Air Room Air 07/14 1452 97.5 53 18 129/60 94 Room Air Room Air 07/14 1310 48 18 181/76 96 Room Air 07/14 1213 97.2 48 20 194/83 99 Room Air Intake & Output 04/21 1600 04/21 0800 04/21 0000 Intake Total 0 420 Output Total 1150 275 Balance -1150 145 Intake, IV 0 300 Intake, Oral 0 120 Output, Urine 1150 275 Patient 195 lb Weight Weight Estimated Measurement Method Physical Exam General Appearance: alert, awake, overweight Head: normal appearance Eyes: Bilateral: normal appearance. Neck: normal inspection Respiratory: normal breath sounds Cardiovascular: irregularly irregular Gastrointestinal: normal bowel sounds, soft Extremities: normal inspection Skin: intact Labs/Liam Results: Laboratory Tests 04/21 04/21 04/21 0940 0315 0315 Chemistry Troponin I (<0.11 ng/ml) Pending 0.40 *H Triglycerides (<150 mg/dL) 95 Cholesterol (< 200 MG/DL) 184 LDL Cholesterol, Calc (65 - 129 mg/dL) 102 HDL Cholesterol (40 - 60 mg/dL) 63 H Cholesterol/HDL Ratio (0.00 - 4.88 %) 3 04/215 2054 1514 Chemistry Sodium (137 - 145 mmol/L) 141 Potassium (3.5 - 5.1 mmol/L) 4.4 Chloride (98 - 107 mmol/L) 107 Carbon Dioxide (22 - 30 mmol/L) 27 Anion Gap (5 - 16) 7 BUN (9 - 20 mg/dL) 24 H Creatinine (0.7 - 1.2 mg/dL) 1.3 H Estimated GFR (>60 ml/min) 52 L BUN/Creatinine Ratio (7 - 25 %) 18.5 Troponin I (<0.11 ng/ml) 0.31 *H 0.18 *H Hematology CBC w Diff NO MAN DIFF REQ WBC (4.8 - 10.8 /CUMM) 8.8 RBC (4.70 - 6.10 /CUMM) 3.17 L Hgb (14.0 - 18.0 G/DL) 10.2 L Hct (42 - 52 %) 30.8 L MCV (80.0 - 94.0 FL) 97.3 H MCH (27.0 - 31.0 PG) 32.2 H RDW (11.5 - 14.5 %) 14.1 Plt Count (130 - 400 /CUMM) 157 MPV (7.4 - 10.4 FL) 9.4 Gran % (42.2 - 75.2 %) 68.1 Lymphocytes % (20.5 - 51.1 %) 21.3 Monocytes % (1.7 - 9.3 %) 9.3 Eosinophils % (0 - 5 %) 1.2 Basophils % (0.0 - 2.0 %) 0.1 Absolute Granulocytes (1.4 - 6.5 /CUMM) 6.0 Absolute Lymphocytes (1.2 - 3.4 /CUMM) 1.9 Absolute Monocytes (0.10 - 0.60 /CUMM) 0.8 H Absolute Eosinophils (0.0 - 0.7 /CUMM) 0.1 Absolute Basophils (0.0 - 0.2 /CUMM) 0 PUBS MCHC (33.0 - 37.0 G/DL) 33.0 07/14 1245 Chemistry Sodium (137 - 145 mmol/L) 141 Potassium (3.5 - 5.1 mmol/L) 4.4 Chloride (98 - 107 mmol/L) 106 Carbon Dioxide (22 - 30 mmol/L) 25 Anion Gap (5 - 16) 10 BUN (9 - 20 mg/dL) 25 H Creatinine (0.7 - 1.2 mg/dL) 1.3 H Estimated GFR (>60 ml/min) 52 L BUN/Creatinine Ratio (7 - 25 %) 19.2 Glucose (65 - 99 mg/dL) 133 H Calcium (8.4 - 10.2 mg/dL) 9.2 Total Bilirubin (0.2 - 1.3 mg/dL) 1.3 AST (17 - 59 U/L) 24 ALT (21 - 72 U/L) 25 Alkaline Phosphatase (< 127 U/L) 109 Troponin I (<0.11 ng/ml) 0.05 Total Protein (6.3 - 8.2 g/dL) 6.8 Albumin (3.5 - 5.0 g/dL) 3.8 Globulin (1.9 - 4.2 gm/dL) 3.0 Albumin/Globulin Ratio (1.1 - 2.2 %) 1.3 Vitamin B12 (239 - 931 pg/mL) > 1000 H TSH (0.270 - 4.200 uIU/mL) 0.161 L Free T4 (0.85 - 1.93 ng/dL) 2.50 H Coagulation PT (9.4 - 12.5 SEC) 11.8 INR (0.90 - 1.17) 1.13 Hematology CBC w Diff NO MAN DIFF REQ WBC (4.8 - 10.8 /CUMM) 10.8 RBC (4.70 - 6.10 /CUMM) 3.54 L Hgb (14.0 - 18.0 G/DL) 11.3 L Hct (42 - 52 %) 34.3 L MCV (80.0 - 94.0 FL) 96.8 H MCH (27.0 - 31.0 PG) 31.8 H RDW (11.5 - 14.5 %) 14.4 Plt Count (130 - 400 /CUMM) 171 MPV (7.4 - 10.4 FL) 9.3 Gran % (42.2 - 75.2 %) 76.5 H Lymphocytes % (20.5 - 51.1 %) 15.3 L Monocytes % (1.7 - 9.3 %) 6.9 Eosinophils % (0 - 5 %) 0.9 Basophils % (0.0 - 2.0 %) 0.4 Absolute Granulocytes (1.4 - 6.5 /CUMM) 8.3 H Absolute Lymphocytes (1.2 - 3.4 /CUMM) 1.7 Absolute Monocytes (0.10 - 0.60 /CUMM) 0.7 H Absolute Eosinophils (0.0 - 0.7 /CUMM) 0.1 Absolute Basophils (0.0 - 0.2 /CUMM) 0 PUBS MCHC (33.0 - 37.0 G/DL) 32.9 L Assessment/Plan Assessment/Plan It appears that this patient is on too much thyroid hormone. I reviewed his medications with him thoroughly and also the timing of his other medications. Unfortunately the patient was taking some iron pills very close to his ingestion of thyroid. Iron medication can interfere with the absorption of thyroid hormone. Suggest that we reduce his levothyroxine to 137 g daily taken first thing in the morning on an empty stomach. Calcium and iron pills should be out by at least 4 hours from the ingestion of thyroid hormone. The patient will need repeat blood work in 4-6 weeks to see if his thyroid replacement therapy needs further adjustments. It is worthwhile checking the patient's thyroid antibodies namely antithyroid peroxidase and anti-thyroglobulin to see if his thyroid disease is on autoimmune basis. This should be added to previous blood work. This is important for his family to know as other family members could be affected. Consult Acknowledgment - Thank you for your consult request.
--- NOTE | 2017-04-21 12:48 | Cons- Pulmonary ---
General Information and HPI Consulting Request Date of Consult: 04/21/17 Requested By: Family and ed History of Present Illness: Came on 04/20/2017, history is as noted when going to a routine urology office visit for a UTI. There was no associated chest pain, palpitations, headache, or abdominal pain. He did become lightheaded and diaphoretic, but did not lose consciousness. There may have been some minimal shortness of breath. He uses 2 pillows at night to sleep, because of his chronic hiatal hernia. He denied any fevers, chills, diarrhea, or constipation, but he does have chronic bloating; again probably related to his hiatal hernia and/or rectus diastasis. He did have some reflux symptoms, and regurgitated some waffles and muffins from this morning.There may be some early satiety, as the majority of his stomach is in his chest cavity, due to his large hiatal hernia. He claimed his [place] general utility worker, Dr. Horton felt that in 11/2016, his atypical symptoms were from his hiatal herna. Apparently, the patient has never had a cardiac cath. 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 Other history Mr. Musa Aguilar is an 87-year-old male, DNR/DNI, ASHD, HTN, HLD, hyperT4 (post HALL), BPH, chronic back pain, renal insufficiency, PAF on Eliquis, last seen in the office 09/13/2015, with a history of IPMN at the uncinate process of the pancreas, post endoscopic ultrasound x2 which have been stable, last one 2011, per Dr. Orr. He previously had normal CA19-9 levels. 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 He is followed by numerous physicians including Dr. Rob Black for primary care in [place], [place]. He also sees Dr. Ruby Jacobs at the [facility] for primary care. Additionally, he sees Dr. Brittany Eduardo for rheumatology, Dr. Leo for surgery, and has switched to Dr. Murali Horton for cardiology. He sees a urologist, whose name he can't recall. He has had endoscopic ultrasounds by Dr. Jesus Alberto Orr at [place], as previously stated. He is actively followed by me for recurrent cough and pna due to hiatal hernia Allergies/Medications Allergies: Coded Allergies: rabeprazole (PER PT DOESNT REMEMBER 12/08/15) rosuvastatin (NERVOUS 12/08/15) simvastatin (NERVOUS 12/08/15) oxycodone (Intermediate, ITCHING 12/08/15) Home Med List: Apixaban (Eliquis) 2.5 MG TABLET 1 TAB PO BID BLOOD THINNER (Reported) Atorvastatin Calcium (Lipitor) 40 MG TABLET 0.5 TAB PO QPM CHOLESTEROL ( Reported) Calcium Carb & Citrate/Vit D3 (Calcium + D3 ER Tablet) 600 MG CALCIUM-500 UNIT TABLET.ER 1 TAB PO QPM SUPPLEMENT (Reported) Citalopram Hydrobromide (Celexa) 40 MG TABLET 1 TAB PO DAILY MENTAL HEALTH ( Reported) Cyanocobalamin (Vitamin B-12) 1,000 MCG TABLET 1 TAB PO DAILY VITAMIN SUPPORT (Reported) Ferrous Sulfate (Ferosul) 325 MG (65 MG IRON) TABLET 1 TAB PO DAILY SUPPLEMENT (Reported) Finasteride 5 MG TABLET 1 TAB PO DAILY PROSTATE (Reported) Furosemide 20 MG TABLET 1 TAB PO DAILY WATER RETENTION (Reported) Levothyroxine Sodium 88 MCG TABLET 2 TAB PO DAILY AC THYROID (Reported) Multivitamin (Multiple Vitamins) 1 EACH TABLET 1 TAB PO QPM SUPPLEMENT ( Reported) Omeprazole 20 MG CAPSULE. 1 CAP PO DAILY GI (Reported) Terazosin HCl 5 MG CAPSULE 1 CAP PO QPM BPH (Reported) Review of Systems Review of Systems Constitutional: Reports: see HPI. Past History Travel History Traveled to [place] past 21 day No Medical History Blood Transfusion Hx: No Neurological: NONE EENT: NONE Cardiovascular: AFIB (PAF), hypertension, hyperlipidemia, CARDIAC BLOCKAGES Respiratory: NONE Gastrointestinal: GERD, hiatal hernia (large), umbilical hernia, diverticulosis coli colon adenoma pancreatic cyst- IPMN Hepatic: NONE Renal: chronic kidney disease, PROSTATITIS/BPH Hx UTI bladder diverticulum Musculoskeletal: chronic back pain, degen joint disease Psychiatric: anxiety (mild), depression Endocrine: hyperthyroidism (post HALL), osteopenia Blood Disorders: anemia (macrocytic) Cancer(s): SKIN CANCER 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 FATHER, , Age 37; Cause: Accident at workplace. BROTHER, ; Cause: Arteriosclerotic heart disease (ASHD). BROTHER, ; Cause: Arteriosclerotic heart disease (ASHD). BROTHER, ; Cause: Arteriosclerotic heart disease (ASHD). SISTER, ; Cause: CVA (cerebral vascular accident). MOTHER (anemia). , Age 73; Cause: CRF (chronic renal failure). Relation not specified for: colon cancer FH: myocardial infarction FH: pancreatic cancer FHx: stroke Psychosocial History Where Do You Live? Home Who Do You Live With? self Services at Home: Home Health Aide, Nursing Primary Language: Belarusian Smoking Status: Never Smoked ETOH Use: occasional use (rare) Illicit Drug Use: denies illicit drug use Living Will? yes Power of Regrind Mill Operator/HCP? yes Name of POA/HCP: Pt's 2 Nick barragan & [phone] Other Social History: since 01/05/10. Lives alone. 2 sons, [employer] (Jair & Nick)- both POA. No cigarettes. Rare EtOH. No drugs. Retired from [employer]. Functional Ability ADLs Independent: dressing, eating, toileting, bathing. Ambulation: independent IADLs Independent: shopping, housework, finances, food prep, telephone, transportation. Needs Assist: medication admin (son helps set up pills). Employment History Employment: Retired Profession/Employer: [employer] ECHO Results (as available) Date of last Echo 06/07/15 EF% 60 Exam & Diagnostic Data Last 24 Hrs of Vital Signs/I&O Vital Signs Date Time Temp Pulse Resp B/P B/P Pulse O2 O2 Flow FiO2 Mean Ox Delivery Rate 04/21 0652 98.2 66 20 120/56 92 Room Air 04/20 2330 98.2 66 20 132/60 96 Room Air 04/204 Room Air Room Air 04/20 1954 97.8 65 20 160/70 95 Room Air 04/20 1935 97.5 55 18 147/68 96 Room Air Room Air 04/20 1828 97.3 57 18 152/48 94 Room Air 04/20 1635 97.4 56 18 118/60 96 Room Air Room Air 04/20 1452 97.5 53 18 129/60 94 Room Air Room Air 04/20 1310 48 18 181/76 96 Room Air Intake & Output 04/21 1600 04/21 0800 04/21 0000 Intake Total 0 420 Output Total 1150 275 Balance -1150 145 Intake, IV 0 300 Intake, Oral 0 120 Output, Urine 1150 275 Patient 195 lb Weight Weight Estimated Measurement Method Last 48 Hrs of Labs/Liam: Laboratory Tests 04/21/17 0940: Troponin I Pending 04/21/17314: Troponin I 0.40 *H 04/21/17 0315: Triglycerides 95, Cholesterol 184, LDL Cholesterol, Calc 102, HDL Cholesterol 63 H, Cholesterol/HDL Ratio 3 04/21/17 0315: Anion Gap 7, Estimated GFR 52 L, BUN/Creatinine Ratio 18.5, CBC w Diff NO MAN DIFF REQ, RBC 3.17 L, MCV 97.3 H, MCH 32.2 H, RDW 14.1, MPV 9.4, Gran % 68.1, Lymphocytes % 21.3, Monocytes % 9.3, Eosinophils % 1.2, Basophils % 0.1, Absolute Granulocytes 6.0, Absolute Lymphocytes 1.9, Absolute Monocytes 0.8 H, Absolute Eosinophils 0.1, Absolute Basophils 0, PUBS MCHC 33.0 04/20/17 2055: Troponin I 0.31 *H 04/20/17 1514: Troponin I 0.18 *H 04/20/17 1245: Anion Gap 10, Estimated GFR 52 L, BUN/Creatinine Ratio 19.2, Glucose 133 H, Calcium 9.2, Total Bilirubin 1.3, AST 24, ALT 25, Alkaline Phosphatase 109, Troponin I 0.05, Total Protein 6.8, Albumin 3.8, Globulin 3.0, Albumin/Globulin Ratio 1.3, Vitamin B12 > 1000 H, TSH 0.161 L, Free T4 2.50 H, PT 11.8, INR 1.13, CBC w Diff NO MAN DIFF REQ, RBC 3.54 L, MCV 96.8 H, MCH 31.8 H, RDW 14.4, MPV 9.3, Gran % 76.5 H, Lymphocytes % 15.3 L, Monocytes % 6.9, Eosinophils % 0.9, Basophils % 0.4, Absolute Granulocytes 8.3 H, Absolute Lymphocytes 1.7, Absolute Monocytes 0.7 H, Absolute Eosinophils 0.1, Absolute Basophils 0, PUBS MCHC 32.9 L Assessment/Plan Impression/Plan: 04/20/17: CT ABDOMEN AND PELVIS WITHOUT CONTRAST- - Stable appearing very large hiatal hernia with the entire stomach and the gastroduodenal junction located within the thoracic cavity. There is no bowel obstruction and there are no inflammatory changes surrounding the large or the small bowel. Small fat-containing umbilical hernia. - There is a stable appearing elongated cyst adjacent to the uncinate process, most likely a pseudocyst. - Bladder diverticula along the upper aspect of the bladder have increased in size. Mild diffuse gallbladder wall thickening again noted. Prostate gland is elongated in the craniocaudal dimension. - Small pericardial effusion. Clear lung bases. - Diverticulosis without evidence of acute diverticulitis. 04/20/17: US ABDOMEN (RUQ) LIMITED- Limited examination without evidence of cholelithiasis or cholecystitis. Normal CBD 4 mm. Well-developed, well-nourished, elderly male, in no apparent distress. Sclera anicteric. Conjunctiva pink. No lid lag. No exopthalmos. Oropharynx clear. No oral thrush. No aphthous ulcers. False uppers. Partial lowers. There is no adenopathy, thyromegaly, or JVD. No peripheral stigmata of inflammatory bowel disease or chronic liver disease on exam. No spiders on the anterior chest wall. No gynecomastia. No CVA tenderness. No definite point spine tenderness. Mild lordosis. Lungs: clear to A&P. Heart exam: regular rate rhythm, S1 and S2, with III/ systolic murmur. Abdominal exam: normal bowel sounds, soft belly, nontender, without guarding or rebound. Rectus diastasis. Small reducible umbilical hernia, otherwise, no mass. No organomegaly. Negative Saini sign. No fluid shift. No pulsatile mass. No epigastric bruit. Extremities: without cyanosisor clubbing. Trace pedal edema B/L. Positive DJD. B/L TKR scars. No palpable cords. Distal pulses 1+ bilaterally. DTRs 1+ bilaterally. Alert and oriented x 3. No tremor. Motor 5/5 B/L. IMPRESSION 87-year-old gentleman with PMH of hypertension, hyperlipidemia, hypothyroidism , BPH, hiatal hernia and chronic back pain , Afib on ELiquis, Aortic stenosis, recurrent uti with abx recently, Hypothyroid on supp now with tfs sugg of overreplacement, He presents to the emergency department complaining of repeated vomiting, nausea and weakness ISSUES Vomiting clearly related to hiatal hernia with food intol Prob Near neurocardiogenic issues No sig pna PT with hypothryoid was on slightly higher dose of levoxyl with clinically and lab quintana hyperthyroid and this is causing the issues aswell Aortic stenosis BPH with recurrent uti Prn inhalers if the patient is coughing WIll follow closely Consult Acknowledgment - Thank you for your consult request.
--- NOTE | 2017-04-21 13:54 | Cons- Cardiology ---
General Information and HPI Consulting Request Date of Consult: 04/21/17 Requested By: CASSIUS WORLEY,CARY Reason for Consult: Elevated troponin Source of Information: patient, family, old records History of Present Illness: This is an 87-year-old male with a past medical history of paroxysmal atrial fibrillation on L course, large hiatal hernia, CKD, ?CAD, thyroid disease, and BPH who presents to [facility] with a chief complaint of nausea and vomiting also associated with some diaphoresis and lightheadedness. He was at his urologist's office when the symptoms started. There were not associated with chest pain or new dyspnea. He does note some chronic exertional dyspnea and his consulting property manager (Dr. Horton) previously tried him on Ranexa without improvement. His outpatient cardiac records are currently unavailable. Of a known large hiatal hernia which was felt not amenable to surgical intervention in the past. He denies orthopnea, PND, bleeding, headache, slurring of speech, or focal weakness. Denies any hematemesis or hematochezia. Did report a bloating sensation. Allergies/Medications Allergies: Coded Allergies: rabeprazole (PER PT DOESNT REMEMBER 12/08/15) rosuvastatin (NERVOUS 12/08/15) simvastatin (NERVOUS 12/08/15) oxycodone (Intermediate, ITCHING 12/08/15) Home Med List: Apixaban (Eliquis) 2.5 MG TABLET 1 TAB PO BID BLOOD THINNER (Reported) Atorvastatin Calcium (Lipitor) 40 MG TABLET 0.5 TAB PO QPM CHOLESTEROL ( Reported) Calcium Carb & Citrate/Vit D3 (Calcium + D3 ER Tablet) 600 MG CALCIUM-500 UNIT TABLET.ER 1 TAB PO QPM SUPPLEMENT (Reported) Citalopram Hydrobromide (Celexa) 40 MG TABLET 1 TAB PO DAILY MENTAL HEALTH ( Reported) Cyanocobalamin (Vitamin B-12) 1,000 MCG TABLET 1 TAB PO DAILY VITAMIN SUPPORT (Reported) Ferrous Sulfate (Ferosul) 325 MG (65 MG IRON) TABLET 1 TAB PO DAILY SUPPLEMENT (Reported) Finasteride 5 MG TABLET 1 TAB PO DAILY PROSTATE (Reported) Furosemide 20 MG TABLET 1 TAB PO DAILY WATER RETENTION (Reported) Levothyroxine Sodium 88 MCG TABLET 2 TAB PO DAILY AC THYROID (Reported) Multivitamin (Multiple Vitamins) 1 EACH TABLET 1 TAB PO QPM SUPPLEMENT ( Reported) Omeprazole 20 MG CAPSULE. 1 CAP PO DAILY GI (Reported) Terazosin HCl 5 MG CAPSULE 1 CAP PO QPM BPH (Reported) Current Medications: Current Medications Sig/Lamar Start time Last Medication Dose Route Stop Time Status Admin Acetaminophen 650 MG Q6P PRN 04/20 1845 AC 04/21 PO 0928 Apixaban 2.5 MG BID 04/20 2200 AC 04/21 PO 0928 Aspirin 81 MG DAILY 04/21 1000 AC 04/21 PO 0928 Aspirin 300 MG ONCE ONE 04/20 1630 DC 04/20 UT 04/20 1631 1701 Atorvastatin Calcium 20 MG QPM 04/21 2200 AC PO Atorvastatin Calcium 20 MG QPM 04/20 2200 DC 04/20 PO 2317 Calcium/Vitamin D 500 MG DAILY 04/21 1000 AC 04/21 PO 0928 Citalopram 40 MG DAILY 04/21 1000 AC 04/21 Hydrobromide PO 0928 Cyanocobalamin 1,000 MCG DAILY 04/21 1000 AC 04/21 PO 0928 Doxazosin Mesylate 2 MG AT BEDTIME 04/20 2200 AC 04/20 PO 2214 Ferrous Sulfate 325 MG DAILY 04/21 1000 AC 04/21 PO 0928 Finasteride 5 MG DAILY 04/21 1000 AC 04/21 PO 0928 Furosemide 20 MG DAILY 04/21 1000 AC 04/21 PO 0928 Levothyroxine Sodium 0.137 MG DAILY AC 04/22 0700 AC PO Levothyroxine Sodium 0.176 MG DAILY AC 04/21 0700 DC PO Levothyroxine Sodium 0.137 MG DAILY AC 04/21 0700 DC PO Levothyroxine Sodium 0.15 MG DAILY AC 04/21 0700 DC 04/21 PO 0709 Metoclopramide HCl 10 MG ONCE ONE 04/20 1800 DC 04/20 IV 04/20 1801 1806 Metoclopramide HCl 0 .STK-MED ONE 04/20 1751 DC .ROUTE Multivitamins 1 TAB QPM 04/20 2200 AC 04/20 Therapeutic PO 2214 Omeprazole 20 MG DAILY 04/21 1000 AC 04/21 PO 0928 Ondansetron HCl 4 MG ONCE ONE 04/20 1400 DC 04/20 IV 04/20 1401 1411 Ondansetron HCl 0 .STK-MED ONE 04/20 1333 DC .ROUTE Sodium Chloride 1,000 ML Q13H 04/21 0500 AC 04/21 IV 04/21 1759 0530 Sodium Chloride 1,000 ML ONCE ONE 04/20 1800 DC 04/20 IV 04/21 0039 1806 Trimethobenzamide HCl 200 MG TID PRN 04/20 2015 AC 04/20 IM 2044 Review of Systems Review of Systems: Review of systems as per HPI. The remainder of a 10 point review of systems was reviewed and was otherwise negative. Past History Travel History Traveled to [place] past 21 day No Medical History Blood Transfusion Hx: No Neurological: NONE EENT: NONE Cardiovascular: AFIB (PAF), hypertension, hyperlipidemia, CARDIAC BLOCKAGES Respiratory: NONE Gastrointestinal: GERD, hiatal hernia (large), umbilical hernia, diverticulosis coli colon adenoma pancreatic cyst- IPMN Hepatic: NONE Renal: chronic kidney disease, PROSTATITIS/BPH Hx UTI bladder diverticulum Musculoskeletal: chronic back pain, degen joint disease Psychiatric: anxiety (mild), depression Endocrine: hyperthyroidism (post HALL), osteopenia Blood Disorders: anemia (macrocytic) Cancer(s): 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 FATHER, , Age 37; Cause: Accident at workplace. BROTHER, ; Cause: Arteriosclerotic heart disease (ASHD). BROTHER, ; Cause: Arteriosclerotic heart disease (ASHD). BROTHER, ; Cause: Arteriosclerotic heart disease (ASHD). SISTER, ; Cause: CVA (cerebral vascular accident). MOTHER (anemia). , Age 73; Cause: CRF (chronic renal failure). Relation not specified for: colon cancer FH: myocardial infarction FH: pancreatic cancer FHx: stroke Psychosocial History Where Do You Live? Home Who Do You Live With? self Services at Home: Home Health Aide, Nursing Primary Language: Croatian Smoking Status: Never Smoked ETOH Use: occasional use (rare) Illicit Drug Use: denies illicit drug use Living Will? yes Power of Triple Valve Tester/HCP? yes Name of POA/HCP: Pt's 2 Nick barragan & [phone] Other Social History: since 01/05/10. Lives alone. 2 sons, [employer] (Jair & Nick)- both POA. No cigarettes. Rare EtOH. No drugs. Retired from [employer]. Functional Ability ADLs Independent: dressing, eating, toileting, bathing. Ambulation: independent IADLs Independent: shopping, housework, finances, food prep, telephone, transportation. Needs Assist: medication admin (son helps set up pills). Employment History Employment: Retired Profession/Employer [employer] ECHO Results (as available) Date of last Echo 06/07/15 EF% 60 Exam & Diagnostic Data Vital Signs and I&O Vital Signs Date Time Temp Pulse Resp B/P B/P Pulse O2 O2 Flow FiO2 Mean Ox Delivery Rate 04/21 0652 98.2 66 20 120/56 92 Room Air 04/20 2330 98.2 66 20 132/60 96 Room Air 04/20 2224 Room Air Room Air 04/20 1954 97.8 65 20 160/70 95 Room Air 04/20 1935 97.5 55 18 147/68 96 Room Air Room Air 04/20 1828 97.3 57 18 152/48 94 Room Air 04/20 1635 97.4 56 18 118/60 96 Room Air Room Air 04/20 1452 97.5 53 18 129/60 94 Room Air Room Air Intake & Output 04/21 1600 04/21 0800 04/21 0000 04/20 1600 04/20 0800 04/20 0000 Intake Total 0 420 Output Total 1150 275 Balance -1150 145 Intake, IV 0 300 Intake, Oral 0 120 Output, Urine 1150 275 Patient 195 lb 200 lb Weight Weight Estimated Measurement Method Physical Exam: General: no apparent distress. Alert. Eyes: No obvious scleral icterus. HEENT: No jugular venous distention or abnormal jugular venous pulsations. Cardiovascular: Normal intensity S1/S2. Regular, 2/6 systolic murmur Respiratory: Lungs clear to auscultation bilaterally. Abdomen: Soft, nontender with no guarding or rebound tenderness. Musculoskeletal: No clubbing or cyanosis noted, no edema Skin: Surgical scar noted Neurologic: No gross focal deficits noted. Labs/Liam Results: Laboratory Tests 04/21 04/21 04/21 0940 0315 0315 Chemistry Troponin I (<0.11 ng/ml) 0.40 *H 0.40 *H Triglycerides (<150 mg/dL) 95 Cholesterol (< 200 MG/DL) 184 LDL Cholesterol, Calc (65 - 129 mg/dL) 102 HDL Cholesterol (40 - 60 mg/dL) 63 H Cholesterol/HDL Ratio (0.00 - 4.88 %) 3 04/21 04/20 04/20 0315 2055 1514 Chemistry Sodium (137 - 145 mmol/L) 141 Potassium (3.5 - 5.1 mmol/L) 4.4 Chloride (98 - 107 mmol/L) 107 Carbon Dioxide (22 - 30 mmol/L) 27 Anion Gap (5 - 16) 7 BUN (9 - 20 mg/dL) 24 H Creatinine (0.7 - 1.2 mg/dL) 1.3 H Estimated GFR (>60 ml/min) 52 L BUN/Creatinine Ratio (7 - 25 %) 18.5 Troponin I (<0.11 ng/ml) 0.31 *H 0.18 *H Hematology CBC w Diff NO MAN DIFF REQ WBC (4.8 - 10.8 /CUMM) 8.8 RBC (4.70 - 6.10 /CUMM) 3.17 L Hgb (14.0 - 18.0 G/DL) 10.2 L Hct (42 - 52 %) 30.8 L MCV (80.0 - 94.0 FL) 97.3 H MCH (27.0 - 31.0 PG) 32.2 H RDW (11.5 - 14.5 %) 14.1 Plt Count (130 - 400 /CUMM) 157 MPV (7.4 - 10.4 FL) 9.4 Gran % (42.2 - 75.2 %) 68.1 Lymphocytes % (20.5 - 51.1 %) 21.3 Monocytes % (1.7 - 9.3 %) 9.3 Eosinophils % (0 - 5 %) 1.2 Basophils % (0.0 - 2.0 %) 0.1 Absolute Granulocytes (1.4 - 6.5 /CUMM) 6.0 Absolute Lymphocytes (1.2 - 3.4 /CUMM) 1.9 Absolute Monocytes (0.10 - 0.60 /CUMM) 0.8 H Absolute Eosinophils (0.0 - 0.7 /CUMM) 0.1 Absolute Basophils (0.0 - 0.2 /CUMM) 0 PUBS MCHC (33.0 - 37.0 G/DL) 33.0 07/14 1245 Chemistry Sodium (137 - 145 mmol/L) 141 Potassium (3.5 - 5.1 mmol/L) 4.4 Chloride (98 - 107 mmol/L) 106 Carbon Dioxide (22 - 30 mmol/L) 25 Anion Gap (5 - 16) 10 BUN (9 - 20 mg/dL) 25 H Creatinine (0.7 - 1.2 mg/dL) 1.3 H Estimated GFR (>60 ml/min) 52 L BUN/Creatinine Ratio (7 - 25 %) 19.2 Glucose (65 - 99 mg/dL) 133 H Calcium (8.4 - 10.2 mg/dL) 9.2 Total Bilirubin (0.2 - 1.3 mg/dL) 1.3 AST (17 - 59 U/L) 24 ALT (21 - 72 U/L) 25 Alkaline Phosphatase (< 127 U/L) 109 Troponin I (<0.11 ng/ml) 0.05 Total Protein (6.3 - 8.2 g/dL) 6.8 Albumin (3.5 - 5.0 g/dL) 3.8 Globulin (1.9 - 4.2 gm/dL) 3.0 Albumin/Globulin Ratio (1.1 - 2.2 %) 1.3 Vitamin B12 (239 - 931 pg/mL) > 1000 H TSH (0.270 - 4.200 uIU/mL) 0.161 L Free T4 (0.85 - 1.93 ng/dL) 2.50 H Coagulation PT (9.4 - 12.5 SEC) 11.8 INR (0.90 - 1.17) 1.13 Hematology CBC w Diff NO MAN DIFF REQ WBC (4.8 - 10.8 /CUMM) 10.8 RBC (4.70 - 6.10 /CUMM) 3.54 L Hgb (14.0 - 18.0 G/DL) 11.3 L Hct (42 - 52 %) 34.3 L MCV (80.0 - 94.0 FL) 96.8 H MCH (27.0 - 31.0 PG) 31.8 H RDW (11.5 - 14.5 %) 14.4 Plt Count (130 - 400 /CUMM) 171 MPV (7.4 - 10.4 FL) 9.3 Gran % (42.2 - 75.2 %) 76.5 H Lymphocytes % (20.5 - 51.1 %) 15.3 L Monocytes % (1.7 - 9.3 %) 6.9 Eosinophils % (0 - 5 %) 0.9 Basophils % (0.0 - 2.0 %) 0.4 Absolute Granulocytes (1.4 - 6.5 /CUMM) 8.3 H Absolute Lymphocytes (1.2 - 3.4 /CUMM) 1.7 Absolute Monocytes (0.10 - 0.60 /CUMM) 0.7 H Absolute Eosinophils (0.0 - 0.7 /CUMM) 0.1 Absolute Basophils (0.0 - 0.2 /CUMM) 0 PUBS MCHC (33.0 - 37.0 G/DL) 32.9 L Diagnostic Data EKG Results Tracing was personally reviewed and shows sinus rhythm with first-degree AV block and intraventricular conduction delay CXR Results No acute disease. Large hiatal hernia unchanged Other Results Telemetry tracings were personally reviewed and show sinus rhythm Abd Ct: - Stable appearing very large hiatal hernia with the entire stomach and the gastroduodenal junction located within the thoracic cavity. There is no bowel obstruction and there are no inflammatory changes surrounding the large or the small bowel - There is a stable appearing elongated cyst adjacent to the uncinate process, most likely a pseudocyst. - Bladder diverticula along the upper aspect of the bladder have increased in size. Mild diffuse gallbladder wall thickening again noted. Prostate gland is elongated in the craniocaudal dimension. - Small pericardial effusion. - Diverticulosis without evidence of acute diverticulitis. Assessment/Plan Assessment/Plan 1. Nausea/vomiting likely due to large hiatal hernia 2. Elevated troponin with consistent with demand ischemia 3. Chronic renal insufficiency 4. Paroxysmal atrial fibrillation on Eliquis 5. History of chronic dyspnea on exertion with ?CAD 6. 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 We will obtain an echocardiogram to exclude any new wall motion abnormalities. He is already fully anticoagulated. No evidence of decompensated congestive heart failure. He does have some evidence of baseline conduction disease but at this time no obvious severe bradycardia that would require permanent pacemaker. Will monitor on telemetry. José Miguel Marshall MD [facility] Consult Acknowledgment - Thank you for your consult request.
[2017-04-21 15:27] VITALS: BP 126/54
[2017-04-21 22:48] VITALS: BP 128/72
[2017-04-21 22:51] VITALS: BP 128/72
[2017-04-22 06:38] VITALS: BP 150/66
[2017-04-22 08:29] LABS: ABSOLUTE BASOPHIL COUNT 0 /CUMM (0.0-0.2); ABSOLUTE EOSINOPHIL COUNT 0.2 /CUMM (0.0-0.7); ABSOLUTE GRANULOCYTE CT 4.8 /CUMM (1.4-6.5); ABSOLUTE MONOCYTE COUNT 0.7 /CUMM (0.10-0.60); BASOPHIL % 0.4 % (0.0-2.0); EOSINOPHIL % 2.4 % (0-5); GRANULOCYTE % 62.4 % (42.2-75.2); HEMATOCRIT 29.6 % (42-52); MEAN CORPUSCULAR HGB 32.1 PG (27.0-31.0); MEAN CORPUSCULAR HGB CONC 32.8 G/DL (33.0-37.0); MEAN CORPUSCULAR VOLUME 97.7 FL (80.0-94.0); MEAN PLATELET VOLUME 9.2 FL (7.4-10.4); PLATELET COUNT 143 /CUMM (130-400); RBC DISTRIBUTION WIDTH 13.7 % (11.5-14.5); RED BLOOD CELL CT 3.03 /CUMM (4.70-6.10); WHITE BLOOD CELL COUNT 7.7 /CUMM (4.8-10.8)
--- NOTE | 2017-04-22 09:41 | PN- Housestaff ---
NALINI OLIVER 04/22/17 0941: Subjective Follow-up For: Elevated TROP N/V Subjective: Patient complains of diaphoresis but neg for any other symptoms. No acute events overnight Review of Systems Constitutional: Reports: see HPI. Objective Last 24 Hrs of Vital Signs/I&O Vital Signs Date Time Temp Pulse Resp B/P B/P Pulse O2 O2 Flow FiO2 Mean Ox Delivery Rate 04/22 1455 97.6 61 20 120/50 96 Room Air 04/22 0638 98.7 60 20 150/66 95 Room Air 04/22 0000 Room Air 04/21 2251 98.3 60 18 128/72 96 Room Air Intake & Output 04/22 1600 04/22 0800 04/22 0000 Intake Total 520 840 400 Output Total 350 450 600 Balance 170 390 -200 Intake, IV 600 Intake, Oral 520 240 400 Number 0 Bowel Movements Output, Urine 350 450 600 Physical Exam General Appearance: Alert, Oriented X3, Cooperative, No Acute Distress HEENT: Atraumatic, PERRLA Cardiovascular: Normal S1, Normal S2, Systolic murmur Lungs: Clear to Auscultation, Normal Air Movement Abdomen: Normal Bowel Sounds, Soft, No Tenderness Extremities: No Cyanosis, No Edema Current Medications: Current Medications Sig/Lamar Start time Last Medication Dose Route Stop Time Status Admin Acetaminophen 650 MG Q6P PRN 04/20 1845 AC 04/21 PO 0928 Apixaban 2.5 MG BID 04/20 2200 AC 04/22 PO 0908 Aspirin 81 MG DAILY 04/21 1000 AC 04/22 PO 0908 Atorvastatin Calcium 20 MG QPM 04/21 2200 AC 04/21 PO 211 Calcium/Vitamin D 500 MG DAILY 04/21 1000 AC 04/22 PO 0908 Citalopram 40 MG DAILY 04/21 1000 AC 04/22 Hydrobromide PO 09 Cyanocobalamin 1,000 MCG DAILY 04/21 1000 AC 04/22 PO 0907 Docusate Sodium 100 MG BID 04/21 2200 AC 04/22 PO 102 Doxazosin Mesylate 2 MG AT BEDTIME 04/20 2200 AC 04/21 PO 211 Ferrous Sulfate 325 MG DAILY 04/21 1000 AC 04/22 PO 1028 Finasteride 5 MG DAILY 04/21 1000 AC 04/22 PO 09 Furosemide 20 MG DAILY 04/21 1000 AC 04/22 PO 0907 Levothyroxine Sodium 0.137 MG DAILY AC 04/22 0700 AC 04/22 PO 1028 Multivitamins 1 TAB QPM 04/20 2200 AC 04/21 Therapeutic PO 2114 Omeprazole 20 MG DAILY 04/21 1000 AC 04/22 PO 0908 Polyethylene Glycol 17 GM DAILY 04/21 1825 AC 04/22 PO 0900 Sodium Chloride 1,000 ML Q13H 04/21 0500 DC 04/21 IV 04/21 175 0530 Trimethobenzamide HCl 200 MG TID PRN 04/20 2015 AC 04/20 IM 2044 Last 24 Hrs of Lab/Liam Results Last 24 Hrs of Labs/Mics: Laboratory Tests 04/22/17714: Anion Gap 6, Estimated GFR 48 L, BUN/Creatinine Ratio 16.4, Calcium 8.5, Magnesium 1.9, Troponin I 0.41 *H, CBC w Diff NO MAN DIFF REQ, RBC 3.03 L, MCV 97.7 H, MCH 32.1 H, RDW 13.7, MPV 9.2, Gran % 62.4, Lymphocytes % 25.6, Monocytes % 9.2, Eosinophils % 2.4, Basophils % 0.4, Absolute Granulocytes 4.8, Absolute Lymphocytes 2.0, Absolute Monocytes 0.7 H, Absolute Eosinophils 0.2, Absolute Basophils 0, PUBS MCHC 32.8 L 04/21/171755: Troponin I 0.38 *H Assessment/Plan Assessment: A 70-year-old male with a past medical history of coronary artery disease, BPH, depression, hypothyroidism, atrial fibrillation on Eliquis, presents to the ER with chief complaint of nausea, vomiting. Vitals at the time of admission blood pressure 118/60, respiratory rate of 18, pulse 56, afebrile saturating 96% on room air. On physical exam he is alert, oriented 3 and in no acute distress sitting comfortably in bed. HEENT revealed PERRLA, moist mucous membranes. Examination of the neck did not reveal an elevated JVD, cervical lymphadenopathy. Cardiovascular exam pertinent for normal S1, S2, no grade 3 x 6 holosystolic murmur heard best at the right sternal border. Respiratory exam revealed chest clear to auscultation bilaterally. Abdominal exam reveals an abdomen that was distended, soft, nontender with normal bowel sounds, Saini's negative, CVA tenderness negative. Examination of the lower extremities revealed trace edema. Neuro exam was grossly unremarkable. Labs pertinent for macrocytic anemia with an H&H of 11.3/34.3, platelet count 1 71,000, normal white blood cell count of 10,800. Serum chemistries revealed a sodium of 141, potassium of 4.4, BUN 25 mg to 1.3. Serum glucose is elevated to 133. LFTs unremarkable with an AST/AST of 24/25, total bili 1.3. First set of troponin 0.05 with second set 0.18. Chest x-ray was done to evaluate for aspiration but showed no acute disease, large hiatal hernia that was unchanged. CT abdomen and pelvis was done which showed stable appearing very large hiatal hernia with entire stomach and gastroduodenal junction located within the thoracic cavity, no bowel obstruction and no inflammatory changes surrounding the small bowel, stable appearing elongated cyst adjacent to the uncinate process most likely a pseudocyst with bladder diverticula along the upper aspect of the bladder. Mild diffuse gallbladder wall thickening is noted, prostate gland is elongated. There is small pericardial effusion with diverticulosis without any evidence of acute diverticulitis. Echocardiogram in May 2015 showed normal left ventricular ejection fraction more than 60% with normal wall motion. In the ER received 300 mg of when necessary aspirin, Reglan 10 mg IV 1, Zofran 4 mg IV 2 and normal saline thousand mls 1. Assessment and plan He was admitetd to Telemetry and the following problems were addressed: #Diaphoretic episode Most likely vasovagal the mediated (given hiatal hernia) versus acute coronary syndrome (given elevated troponins and atypical-like symptoms - unliley) Trops trending up - more like a plateau effect given CKD. EKG showed no ischemic changes. Echocardiogram to rule out regional wall motion abnormalities Continue Eliquis for now Follow-up troponin at 9 AM. If continues to elevate we'll consider starting on heparin Cardiology consult with Rasheed Marshall MD Continue aspirin 81 mg daily Tigan 3 times a day when necessary for nausea #Hiatal hernia Maintain on aspiration precautions Patient is not a surgical candidate. He was seen by vilma Roche consider surgical re-evaluation for laparoscopic hiatal hernia repair, but the patient was previously felt to be too high risk by Dr. Leo. Given advanced age and comorbidities, doubt patient will nbeneift frm colonoscopy. Ultrasound abdomen was done which rule out for cholelithiasis given vomiting. Of note patient's Saini's sign was negative. Continue omeprazole 40 mg daily #History of atrial fibrillation Continue on Eliquis 2.5 mg twice a day #BPH Continue on finasteride and terazosin. #Hypothyroidism TSH was low and FT4 elevated. -Decreased his home levothryoxine dose to 150mcg daily. Endo conult in AM. F/U recs - DVT prophylaxis Eliquis 2.5 twice a day Diet Heart healthy CODE STATUS DNR/DNI Problem List: 1. BPH (benign prostatic hyperplasia) 2. Vomiting Pain Ratin Pain Location: N/A Pain Goal: Remain pain free Pain Plan: N/A Tomorrow's Labs & Rationales: CBC to monitor anemia ERMELINDA WORLEY,ELLEN 04/22/17 1202: Attending MD Review Statement Attending Statement Attending MD Statement: examined this patient, discuss w/resident/PA/[employer] INST[employer]ER, agreed w/resident/PA/[employer] INST[employer]ER, reviewed EMR data (avail) Attending Assessment/Plan: Patient seen and examined. Plan of care discussed with the medical team and the patient. Available lab work and radiology test reports were reviewed. Patient is lying in bed comfortably without any distress. He does not report any new symptoms today. He denied any chest pain or difficulty breathing. He denies any recent fever chills nausea vomiting or abdominal pain. Overall he appears comfortable. His vital signs have been stable. Patient has been afebrile. Labs were reviewed. Creatinine is 1.4 which is close to his baseline. On exam chest is clear abdomen soft nontender. Troponin level loss was 0.41. The global antibody level was 19 and thyroid peroxidase antibody level is less than 28. Both within normal range. Assessment plan * Demand ischemia- seen by cardiology; tachycardic and was done this morning and will be reviewed by cardiology. * Possible vasovagal episode- with associated nausea vomiting and sweating. symptoms could be related to hiatal hernia * Chronic renal failure- creatinine at baseline * History of atrial fibrillation currently on eliquis * History of hypothyroidism- consult note by endocrine was noted. Agree with reducing level thyroxine to 137 g daily. Patient will follow with Dr. Borjas as outpatient and will have his lab work done in 4-6 weeks. * Increase ambulation * Possible discharge home tomorrow
--- NOTE | 2017-04-22 11:35 | PN- Pulmonary ---
Subjective HPI/Critical Care Issues: Feels back to baseline Objective Current Medications: Current Medications Sig/Lamar Start time Last Medication Dose Route Stop Time Status Admin Acetaminophen 650 MG Q6P PRN 04/20 1845 AC 04/21 PO 0928 Apixaban 2.5 MG BID 04/20 2200 AC 04/22 PO 0908 Aspirin 81 MG DAILY 04/21 1000 AC 04/22 PO 0908 Atorvastatin Calcium 20 MG QPM 04/21 2200 AC 04/21 PO 2113 Atorvastatin Calcium 20 MG QPM 04/20 2200 IN 04/20 PO 2317 Calcium/Vitamin D 500 MG DAILY 04/21 1000 AC 04/22 PO 0908 Citalopram 40 MG DAILY 04/21 1000 AC 04/22 Hydrobromide PO 0907 Cyanocobalamin 1,000 MCG DAILY 04/21 1000 AC 04/22 PO 0907 Docusate Sodium 100 MG BID 04/21 2200 AC 04/22 PO 1028 Doxazosin Mesylate 2 MG AT BEDTIME 04/20 2200 AC 04/21 PO 2114 Ferrous Sulfate 325 MG DAILY 04/21 1000 AC 04/22 PO 1028 Finasteride 5 MG DAILY 04/21 1000 AC 04/22 PO 0907 Furosemide 20 MG DAILY 04/21 1000 AC 04/22 PO 0907 Levothyroxine Sodium 0.137 MG DAILY AC 04/22 0700 AC 04/22 PO 1028 Multivitamins 1 TAB QPM 04/20 2200 AC 04/21 Therapeutic PO 2114 Omeprazole 20 MG DAILY 04/21 1000 AC 04/22 PO 0908 Polyethylene Glycol 17 GM DAILY 04/21 1825 AC 04/22 PO 0900 Sodium Chloride 1,000 ML Q13H 04/21 0500 DC 04/21 IV 04/21 1759 0530 Trimethobenzamide HCl 200 MG TID PRN 04/20 2015 AC 04/20 IM 2045 Laboratory Tests 04/22 04/21 04/21 0715 1756 0940 Chemistry Sodium (137 - 145 mmol/L) 141 Potassium (3.5 - 5.1 mmol/L) 4.2 Chloride (98 - 107 mmol/L) 108 H Carbon Dioxide (22 - 30 mmol/L) 26 Anion Gap (5 - 16) 6 BUN (9 - 20 mg/dL) 23 H Creatinine (0.7 - 1.2 mg/dL) 1.4 H Estimated GFR (>60 ml/min) 48 L BUN/Creatinine Ratio (7 - 25 %) 16.4 Calcium (8.4 - 10.2 mg/dL) 8.5 Magnesium (1.6 - 2.3 mg/dL) 1.9 Troponin I (<0.11 ng/ml) 0.41 *H 0.38 *H 0.40 *H Hematology CBC w Diff NO MAN DIFF REQ WBC (4.8 - 10.8 /CUMM) 7.7 RBC (4.70 - 6.10 /CUMM) 3.03 L Hgb (14.0 - 18.0 G/DL) 9.7 L Hct (42 - 52 %) 29.6 L MCV (80.0 - 94.0 FL) 97.7 H MCH (27.0 - 31.0 PG) 32.1 H RDW (11.5 - 14.5 %) 13.7 Plt Count (130 - 400 /CUMM) 143 MPV (7.4 - 10.4 FL) 9.2 Gran % (42.2 - 75.2 %) 62.4 Lymphocytes % (20.5 - 51.1 %) 25.6 Monocytes % (1.7 - 9.3 %) 9.2 Eosinophils % (0 - 5 %) 2.4 Basophils % (0.0 - 2.0 %) 0.4 Absolute Granulocytes (1.4 - 6.5 /CUMM) 4.8 Absolute Lymphocytes (1.2 - 3.4 /CUMM) 2.0 Absolute Monocytes (0.10 - 0.60 /CUMM) 0.7 H Absolute Eosinophils (0.0 - 0.7 /CUMM) 0.2 Absolute Basophils (0.0 - 0.2 /CUMM) 0 PUBS MCHC (33.0 - 37.0 G/DL) 32.8 L 04/21 04/21 04/21 0315 0315 0315 Chemistry Sodium (137 - 145 mmol/L) 141 Potassium (3.5 - 5.1 mmol/L) 4.4 Chloride (98 - 107 mmol/L) 107 Carbon Dioxide (22 - 30 mmol/L) 27 Anion Gap (5 - 16) 7 BUN (9 - 20 mg/dL) 24 H Creatinine (0.7 - 1.2 mg/dL) 1.3 H Estimated GFR (>60 ml/min) 52 L BUN/Creatinine Ratio (7 - 25 %) 18.5 Troponin I (<0.11 ng/ml) 0.40 *H Triglycerides (<150 mg/dL) 95 Cholesterol (< 200 MG/DL) 184 LDL Cholesterol, Calc (65 - 129 mg/dL) 102 HDL Cholesterol (40 - 60 mg/dL) 63 H Cholesterol/HDL Ratio (0.00 - 4.88 %) 3 Hematology CBC w Diff NO MAN DIFF REQ WBC (4.8 - 10.8 /CUMM) 8.8 RBC (4.70 - 6.10 /CUMM) 3.17 L Hgb (14.0 - 18.0 G/DL) 10.2 L Hct (42 - 52 %) 30.8 L MCV (80.0 - 94.0 FL) 97.3 H MCH (27.0 - 31.0 PG) 32.2 H RDW (11.5 - 14.5 %) 14.1 Plt Count (130 - 400 /CUMM) 157 MPV (7.4 - 10.4 FL) 9.4 Gran % (42.2 - 75.2 %) 68.1 Lymphocytes % (20.5 - 51.1 %) 21.3 Monocytes % (1.7 - 9.3 %) 9.3 Eosinophils % (0 - 5 %) 1.2 Basophils % (0.0 - 2.0 %) 0.1 Absolute Granulocytes (1.4 - 6.5 /CUMM) 6.0 Absolute Lymphocytes (1.2 - 3.4 /CUMM) 1.9 Absolute Monocytes (0.10 - 0.60 /CUMM) 0.8 H Absolute Eosinophils (0.0 - 0.7 /CUMM) 0.1 Absolute Basophils (0.0 - 0.2 /CUMM) 0 PUBS MCHC (33.0 - 37.0 G/DL) 33.0 Immunology Thyroglobulin Antibody (< 61 U/mL) 19 Thyroid Peroxidase Ab (< 61 U/mL) < 28 04/20 04/20 04/20 2055 1514 1245 Chemistry Sodium (137 - 145 mmol/L) 141 Potassium (3.5 - 5.1 mmol/L) 4.4 Chloride (98 - 107 mmol/L) 106 Carbon Dioxide (22 - 30 mmol/L) 25 Anion Gap (5 - 16) 10 BUN (9 - 20 mg/dL) 25 H Creatinine (0.7 - 1.2 mg/dL) 1.3 H Estimated GFR (>60 ml/min) 52 L BUN/Creatinine Ratio (7 - 25 %) 19.2 Glucose (65 - 99 mg/dL) 133 H Calcium (8.4 - 10.2 mg/dL) 9.2 Total Bilirubin (0.2 - 1.3 mg/dL) 1.3 AST (17 - 59 U/L) 24 ALT (21 - 72 U/L) 25 Alkaline Phosphatase (< 127 U/L) 109 Troponin I (<0.11 ng/ml) 0.31 *H 0.18 *H 0.05 Total Protein (6.3 - 8.2 g/dL) 6.8 Albumin (3.5 - 5.0 g/dL) 3.8 Globulin (1.9 - 4.2 gm/dL) 3.0 Albumin/Globulin Ratio (1.1 - 2.2 %) 1.3 Vitamin B12 (239 - 931 pg/mL) > 1000 H TSH (0.270 - 4.200 uIU/mL) 0.161 L Free T4 (0.85 - 1.93 ng/dL) 2.50 H Coagulation PT (9.4 - 12.5 SEC) 11.8 INR (0.90 - 1.17) 1.13 Hematology CBC w Diff NO MAN DIFF REQ WBC (4.8 - 10.8 /CUMM) 10.8 RBC (4.70 - 6.10 /CUMM) 3.54 L Hgb (14.0 - 18.0 G/DL) 11.3 L Hct (42 - 52 %) 34.3 L MCV (80.0 - 94.0 FL) 96.8 H MCH (27.0 - 31.0 PG) 31.8 H RDW (11.5 - 14.5 %) 14.4 Plt Count (130 - 400 /CUMM) 171 MPV (7.4 - 10.4 FL) 9.3 Gran % (42.2 - 75.2 %) 76.5 H Lymphocytes % (20.5 - 51.1 %) 15.3 L Monocytes % (1.7 - 9.3 %) 6.9 Eosinophils % (0 - 5 %) 0.9 Basophils % (0.0 - 2.0 %) 0.4 Absolute Granulocytes (1.4 - 6.5 /CUMM) 8.3 H Absolute Lymphocytes (1.2 - 3.4 /CUMM) 1.7 Absolute Monocytes (0.10 - 0.60 /CUMM) 0.7 H Absolute Eosinophils (0.0 - 0.7 /CUMM) 0.1 Absolute Basophils (0.0 - 0.2 /CUMM) 0 PUBS MCHC (33.0 - 37.0 G/DL) 32.9 L Vital Signs & I&O Last 24 Hrs of Vitals and I&O: Vital Signs Date Time Temp Pulse Resp B/P B/P Pulse O2 O2 Flow FiO2 Mean Ox Delivery Rate 04/22 0638 98.7 60 20 150/66 95 Room Air 04/22 0000 Room Air 04/21 2251 98.3 60 18 128/72 96 Room Air 04/21 1527 97.5 59 20 126/54 95 Room Air Intake & Output 04/22 1600 04/22 0800 04/22 0000 Intake Total 840 400 Output Total 450 600 Balance 390 -200 Intake, IV 600 Intake, Oral 240 400 Number 0 Bowel Movements Output, Urine 450 600 Impression/Plan Impression/Plan Impression/Plan: 04/20/17: CT ABDOMEN AND PELVIS WITHOUT CONTRAST- - Stable appearing very large hiatal hernia with the entire stomach and the gastroduodenal junction located within the thoracic cavity. There is no bowel obstruction and there are no inflammatory changes surrounding the large or the small bowel. Small fat-containing umbilical hernia. - There is a stable appearing elongated cyst adjacent to the uncinate process, most likely a pseudocyst. - Bladder diverticula along the upper aspect of the bladder have increased in size. Mild diffuse gallbladder wall thickening again noted. Prostate gland is elongated in the craniocaudal dimension. - Small pericardial effusion. Clear lung bases. - Diverticulosis without evidence of acute diverticulitis. 04/20/17: US ABDOMEN (RUQ) LIMITED- Limited examination without evidence of cholelithiasis or cholecystitis. Normal CBD 4 mm. Well-developed, well-nourished, elderly male, in no apparent distress. Sclera anicteric. Conjunctiva pink. No lid lag. No exopthalmos. Oropharynx clear. No oral thrush. No aphthous ulcers. False uppers. Partial lowers. There is no adenopathy, thyromegaly, or JVD. No peripheral stigmata of inflammatory bowel disease or chronic liver disease on exam. No spiders on the anterior chest wall. No gynecomastia. No CVA tenderness. No definite point spine tenderness. Mild lordosis. Lungs: clear to A&P. Heart exam: regular rate rhythm, S1 and S2, with III/ systolic murmur. Abdominal exam: normal bowel sounds, soft belly, nontender, without guarding or rebound. Rectus diastasis. Small reducible umbilical hernia, otherwise, no mass. No organomegaly. Negative Saini sign. No fluid shift. No pulsatile mass. No epigastric bruit. Extremities: without cyanosisor clubbing. Trace pedal edema B/L. Positive DJD. B/L TKR scars. No palpable cords. Distal pulses 1+ bilaterally. DTRs 1+ bilaterally. Alert and oriented x 3. No tremor. Motor 5/5 B/L. IMPRESSION 87-year-old gentleman with PMH of hypertension, hyperlipidemia, hypothyroidism , BPH, hiatal hernia and chronic back pain , Afib on ELiquis, Aortic stenosis, recurrent uti with abx recently, Hypothyroid on supp now with tfs sugg of overreplacement, He presents to the emergency department complaining of repeated vomiting, nausea and weakness ISSUES Vomiting related to hiatal hernia with food intol Prob Near neurocardiogenic syncope now better No sig pna PT with hypothryoid was on slightly higher dose of levoxyl with clinically and lab quintana hyperthyroid and this is causing the issues aswell Aortic stenosis BPH with recurrent uti Prn inhalers if the patient is coughing WIll follow closely
[2017-04-22 14:55] VITALS: BP 120/50
--- NOTE | 2017-04-22 21:05 | ECHOCARDIOGRAM REPORT ---
JOSEFA GILES Age: 87 : 1930 Gender: M Exam Date: 04/22/2017 09:03 Exam Location: [address] [facility] Ht (in): 69 Wt (lb): 195 BSA: 2.10 BP: 150 / 66 Ordering Physician: MUKUND WHITMAN MD Referring Physician: Rasheed Marshall M.D. Technologist: Bharati Franklin [facility] Room Number: [id number] Indications: MYOCARDIAL ISCHEMIA/UT Rhythm: Sinus Technical Quality: Fair FINDINGS Left Ventricle Left ventricular cavity size normal. No obvious regional wall motion abnormalities. Left ventricular wall thickness mildly increased. Hyperdynamic left ventricular systolic function. Left ventricular ejection fraction is estimated at > 65 %. Right Ventricle Normal right ventricular size and function. Right Atrium Normal right atrial size. Left Atrium Mild to moderate left atrial dilatation. Mitral Valve No mitral stenosis. Mild mitral annular calcification. Mild mitral regurgitation. Aortic Valve Aortic valve not well visualized. Diffuse thickening of the aortic valve cusps with reduced excursion. Moderate aortic stenosis (GARCÍA 1.4 cm2 with a mean gradient of 40 mmHg). Tricuspid Valve Structurally normal tricuspid valve. Mild tricuspid regurgitation. Right ventricular systolic pressure estimated to be elevated at > 45 mmHg. Pulmonic Valve Pulmonic valve not well visualized, grossly normal. Pericardium No pericardial effusion. Great Vessels Normal size aortic root and proximal ascending aorta. CONCLUSIONS Left ventricular cavity size normal. No obvious regional wall motion abnormalities. Left ventricular wall thickness mildly increased. Hyperdynamic left ventricular systolic function. Left ventricular ejection fraction is estimated at > 65 %. Normal right ventricular size and function. Mild to moderate left atrial dilatation. Diffuse thickening of the aortic valve cusps with reduced excursion. Moderate aortic stenosis (GARCÍA 1.4 cm2 with a mean gradient of 40 mmHg). Right ventricular systolic pressure estimated to be elevated at > 45 mmHg. Rasheed Marshall M.D. (Electronically Signed) Final Date: 22 April 2017 21:04 MEASUREMENTS (Male / Female) Normal Values 2D ECHO LV Diastolic Diameter PLAX 4.1 cm 4.2 - 5.9 / 3.9 - 5.3 cm LV Systolic Diameter PLAX 2.2 cm 2.1 - 4.0 cm LV Fractional Shortening PLAX 46.3 % 25 - 46 % LV Ejection Fraction 2D Teich 78.2 % IVS Diastolic Thickness 1.5 cm LVPW Diastolic Thickness 1.4 cm LV Relative Wall Thickness 0.7 RV Internal Dim ED PLAX 2.7 cm 1.9 - 3.8 cm LVOT Diameter 2.3 cm Aortic Root Diameter 2.9 cm LA Systolic Diameter LX 2.8 cm 3.0 - 4.0 / 2.7 - 3.8 cm LA Volume 74.0 cm 18 - 58 / 22 - 52 cm Ascending Aorta Diameter 3.0 cm DOPPLER AV Peak Velocity 416.0 cm/s AV Peak Gradient 69.2 mmHg AV Mean Velocity 291.0 cm/s AV Mean Gradient 40.0 mmHg AV Velocity Time Integral 103.0 cm LVOT Peak Velocity 140.0 cm/s LVOT Peak Gradient 7.8 mmHg LVOT Mean Velocity 103.0 cm/s LVOT Mean Gradient 5.0 mmHg LVOT Velocity Time Integral 39.9 cm LVOT Stroke Volume 165.8 cm AV Area Cont Eq vti 1.6 cm AV Area Cont Eq pk 1.4 cm MV Peak Velocity 130.0 cm/s MV Peak Gradient 6.8 mmHg MV Mean Velocity 73.1 cm/s MV Mean Gradient 3.0 mmHg Mitral E Point Velocity 117.0 cm/s Mitral A Point Velocity 118.0 cm/s Mitral E to A Ratio 1.0 MV PHT Velocity 134.0 cm/s MV Deceleration [place] 563.0 cm/s MV Pressure Half Time 71.4 ms MV Area PHT 3.1 cm MV Deceleration Time 206.0 ms TR Peak Velocity 319.0 cm/s TR Peak Gradient 40.7 mmHg Right Atrial Pressure 5.0 mmHg Pulmonary Artery Systolic Pressu 45.7 mmHg Right Ventricular Systolic Press 45.7 mmHg PV Peak Velocity 162.0 cm/s PV Peak Gradient 10.5 mmHg PV Mean Velocity 99.8 cm/s PV Mean Gradient 5.0 mmHg PV Velocity Time Integral 29.7 cm LV E' Lateral Velocity 7.4 cm/s Mitral E to LV E' Lateral Ratio 15.9 LV E' Septal Velocity 5.6 cm/s Mitral E to LV E' Septal Ratio 21.0
[2017-04-22 22:17] VITALS: BP 130/54
[2017-04-23 06:37] VITALS: BP 130/60
--- NOTE | 2017-04-23 07:35 | PN- Housestaff ---
JJ WORLEY,DEVYN 04/23/17 0734: Subjective Follow-up For: Elevated TROP N/V Complaints: attacks of sweating Tele-Events Since Last Visit: SB 51-56, no events Subjective: Patient is lying down in no stress, breathing room air, complaints of RECURRENT attacks of sweating Review of Systems Constitutional: Reports: diaphoresis. EENTM: Denies: no symptoms. Cardiovascular: Denies: no symptoms. Respiratory: Denies: no symptoms. Gastrointestinal: Denies: no symptoms. Objective Last 24 Hrs of Vital Signs/I&O Vital Signs Date Time Temp Pulse Resp B/P B/P Pulse O2 O2 Flow FiO2 Mean Ox Delivery Rate 04/23 0637 97.9 53 20 130/60 96 Room Air 04/22 2217 97.9 64 20 130/54 96 Room Air 04/22 1455 97.6 61 20 120/50 96 Room Air Intake & Output 04/23 0800 04/23 0000 04/22 1600 Intake Total 240 450 520 Output Total 700 350 350 Balance -460 100 170 Intake, Oral 240 450 520 Number 1 Bowel Movements Output, Urine 700 350 350 Physical Exam General Appearance: Alert, Oriented X3, Cooperative, No Acute Distress Skin: No Rashes, No Breakdown, No Significant Lesion, multiple seborrhic keratotic patches on the back Skin Temp/Moisture Exam: Warm/Dry HEENT: Atraumatic, PERRLA, EOMI, Mucous Membr. moist/pink Neck: Supple, No JVD Cardiovascular: Regular Rate, Normal S1, Normal S2, grade 3/6 ejection systolic in aortic area Lungs: Clear to Auscultation, Normal Air Movement Current Medications: Current Medications Sig/Lamar Start time Last Medication Dose Route Stop Time Status Admin Acetaminophen 650 MG Q6P PRN 04/20 1845 AC 04/21 PO 09 Apixaban 2.5 MG BID 04/20 2200 AC 04/22 PO 214 Aspirin 81 MG DAILY 04/21 1000 AC 04/22 PO 09 Atorvastatin Calcium 20 MG QPM 04/21 2200 AC 04/22 PO 214 Calcium/Vitamin D 500 MG DAILY 04/21 1000 AC 04/22 PO 0908 Citalopram 40 MG DAILY 04/21 1000 AC 04/22 Hydrobromide PO 09 Cyanocobalamin 1,000 MCG DAILY 04/21 1000 AC 04/22 PO 0907 Docusate Sodium 100 MG BID 04/21 2200 AC 04/22 PO 214 Doxazosin Mesylate 2 MG AT BEDTIME 04/20 2200 AC 04/22 PO 214 Ferrous Sulfate 325 MG DAILY 04/21 1000 AC 04/22 PO 1028 Finasteride 5 MG DAILY 04/21 1000 AC 04/22 PO 0907 Furosemide 20 MG DAILY 04/21 1000 AC 04/22 PO 0907 Levothyroxine Sodium 0.137 MG DAILY AC 04/22 0700 AC 04/23 PO 0615 Multivitamins 1 TAB QPM 04/200 AC 04/22 Therapeutic PO 214 Omeprazole 20 MG DAILY 04/21 1000 AC 04/22 PO 0908 Polyethylene Glycol 17 GM DAILY 04/21 1825 AC 04/22 PO 09 Trimethobenzamide HCl 200 MG TID PRN 04/20 2015 AC 04/20 IM 5 Last 24 Hrs of Lab/Liam Results Last 24 Hrs of Labs/Mics: Laboratory Tests 04/23/17 0630: Anion Gap 6, Estimated GFR 52 L, BUN/Creatinine Ratio 18.5, Calcium 8.8, Phosphorus 3.8, Magnesium 1.9, Troponin I Pending, CBC w Diff Pending, WBC Pending, RBC Pending, Hgb Pending, Hct Pending, MCV Pending, MCH Pending, RDW Pending, Plt Count Pending, MPV Pending, PUBS MCHC Pending 04/22/17 1535: Troponin I Cancelled Orders ECHO Findings: -Left ventricular cavity size normal. No obvious regional wall motion abnormalities. Left ventricular wall thickness mildly increased. -Hyperdynamic left ventricular systolic function. Left ventricular ejection fraction is estimated at > 65 %. -Normal right ventricular size and function. Mild to moderate left atrial dilatation. Diffuse thickening of the aortic valve cusps with reduced excursion. Moderate aortic stenosis (GARCÍA 1.4 cm2 with a mean gradient of 40 mmHg). Right ventricular systolic pressure estimated to be elevated at > 45 mmHg. Assessment/Plan Assessment: A 70-year-old male with a past medical history of coronary artery disease, BPH, depression, hypothyroidism, atrial fibrillation on Eliquis, presents to the ER with chief complaint of nausea, vomiting.sweating and weakness Vitals at the time of admission blood pressure 118/60, respiratory rate of 18, pulse 56, afebrile saturating 96% on room air. Labs on admission:pertinent for macrocytic anemia with an H&H of 11.3/34.3, platelet count 1 71,000, normal white blood cell count of 10,800. Serum chemistries revealed a sodium of 141, potassium of 4.4, BUN 25 mg to 1.3. Serum glucose is elevated to 133. LFTs unremarkable with an AST/AST of 24/25, total bili 1.3. First set of troponin 0.05 with second set 0.18. In the ER received 300 mg of when necessary aspirin, Reglan 10 mg IV 1, Zofran 4 mg IV 2 and normal saline thousand mls 1. Assessment and plan #Diaphoretic episode -Pt contiues to to have these episodes he reports having one episode yesterday which lasted only for a few minutes when of the dr was examining him, the patient denies any palpitation, weakness or shortness of breath associated with these episodes -Most likely vasovagal the mediated (given hiatal hernia) - His troponin is trending down, with no EKG changes which make it most likely due to either demand ischemia or due to CKD rather than due to ACS. -Continue to monitor on telemetry . -I's and O's and daily weight. -Monitor vitals- Tigan 3 times a day when necessary for nausea #Hiatal hernia -Maintain on aspiration precautions -Patient is not a surgical candidate. -Continue omeprazole 40 mg daily -Keep HOB elevated with feeds Advance diet as tolerated. -PRN inhaler if the patient is coughing, as per DR York,recommendation -He was seen by Dr. Betts,who recommended considering surgical re-evaluation for laparoscopic hiatal hernia repair, but the patient was previously felt to be too high risk by Dr. Leo. Given advanced age and comorbidities, doubt patient will nbeneift frm colonoscopy. -Chest x-ray was done to evaluate for aspiration but showed no acute disease, large hiatal hernia that was unchanged. -CT abdomen and pelvis was done which showed stable appearing very large hiatal hernia with entire stomach and gastroduodenal junction located within the thoracic cavity, no bowel obstruction and no inflammatory changes surrounding the small bowel, stable appearing elongated cyst adjacent to the uncinate process most likely a pseudocyst with bladder diverticula along the upper aspect of the bladder. Mild diffuse gallbladder wall thickening is noted, prostate gland is elongated. There is small pericardial effusion with diverticulosis without any evidence of acute diverticulitis. -Ultrasound abdomen was done which rule out for cholelithiasis given vomiting. #History of atrial fibrillation -Continue on Eliquis 2.5 mg twice a day -Continue aspirin 81 mg daily -Echocardiogram yesterday showed Mildly increased left ventricular wall thickness, LV EF more than 65 and moderate -Cardiology on board #BPH Continue on finasteride and terazosin. #Hypothyroidism TSH was low and FT4 elevated. -Decreased his home levothryoxine dose to 137mcg daily, on empty stomach As per Dr Muñoz recomm. -Calcium and iron by 4 hours from thyroid medications . - We'll repeat thyroid function in 4-6 weeks, in outpatient. thyroid antibodies namely antithyroid peroxidase and anti-thyroglobulin were normal. -Endocrinology on board. - DVT prophylaxis Eliquis 2.5 twice a day. Diet Heart healthy. CODE STATUS DNR/DNI Problem List: 1. Vomiting 2. Hiatal hernia 3. Family history of colon cancer 4. Elevated troponin 5. Vasovagal episode Pain Ratin Pain Location: n/a Pain Goal: Remain pain free Pain Plan: tyenol Tomorrow's Labs & Rationales: bep cbc DVT/Prophylaxis: pharmacological CHHAYA AVALOS MD 04/23/172: Attending MD Review Statement Attending Statement Attending MD Statement: examined this patient, discuss w/resident/PA/FURNACE INSTALLER, agreed w/resident/PA/FURNACE INSTALLER, reviewed EMR data (avail), discussed with nursing, discussed with case mgmt, amended to note Attending Assessment/Plan: The patient was seen and discussed with house staff and cardiology. Agree with planned discharge to home today.
[2017-04-23 08:27] LABS: ABSOLUTE BASOPHIL COUNT 0 /CUMM (0.0-0.2); ABSOLUTE EOSINOPHIL COUNT 0.2 /CUMM (0.0-0.7); ABSOLUTE GRANULOCYTE CT 4.6 /CUMM (1.4-6.5); ABSOLUTE MONOCYTE COUNT 0.9 /CUMM (0.10-0.60); BASOPHIL % 0.4 % (0.0-2.0); EOSINOPHIL % 2.6 % (0-5); GRANULOCYTE % 59.3 % (42.2-75.2); HEMATOCRIT 29.4 % (42-52); MEAN CORPUSCULAR HGB CONC 33.1 G/DL (33.0-37.0); MEAN CORPUSCULAR VOLUME 96.4 FL (80.0-94.0); MEAN PLATELET VOLUME 9.4 FL (7.4-10.4); PLATELET COUNT 151 /CUMM (130-400); RBC DISTRIBUTION WIDTH 13.9 % (11.5-14.5); RED BLOOD CELL CT 3.05 /CUMM (4.70-6.10); WHITE BLOOD CELL COUNT 7.8 /CUMM (4.8-10.8)
--- NOTE | 2017-04-23 09:04 | Discharge Summary ---
See Addendum Visit Information Visit Dates Admission Date: 04/20/17 Discharge Date: 04/23/17 Hospital Course Course Attending Physician: CARY HAMMONDS MD Primary Care Physician: JENELLE WORLEY,ILDA Enriquez Hospital Course: 70-year-old male with a past medical history of coronary artery disease, BPH, depression, hypothyroidism, atrial fibrillation on Eliquis,He was admitted to the ER with chief complaint of nausea, vomiting,sweating and weakness. Vitals at the time of admission: blood pressure 118/60, respiratory rate of 18, pulse 56, afebrile saturating 96% on room air. Pertinent Labs on admission: pertinent for macrocytic anemia with an H&H of 11.3/34.3, platelet count 1 71, 000, normal white blood cell count of 10,800. Serum chemistries revealed a sodium of 141, potassium of 4.4, BUN 25 mg to 1.3. Serum glucose is elevated to 133. LFTs unremarkable with an AST/AST of 24/25, total bili 1.3. First set of troponin 0.05 with second set 0.18. Pertinent imaging on admission: -Chest x-ray was done to evaluate for aspiration but showed no acute disease, large hiatal hernia that was unchanged. -CT abdomen and pelvis was done which showed stable appearing very large hiatal hernia with entire stomach and gastroduodenal junction located within the thoracic cavity, no bowel obstruction and no inflammatory changes surrounding the small bowel, stable appearing elongated cyst adjacent to the uncinate process most likely a pseudocyst with bladder diverticula along the upper aspect of the bladder. Mild diffuse gallbladder wall thickening is noted, prostate gland is elongated. There is small pericardial effusion with diverticulosis without any evidence of acute diverticulitis. -Ultrasound abdomen was done which rule out for cholelithiasis given vomiting. Echo on 04/22/17: Left ventricular cavity size normal. No obvious regional wall motion abnormalities. Left ventricular wall thickness mildly increased. Hyperdynamic left ventricular systolic function. Left ventricular ejection fraction is estimated at > 65 %. Normal right ventricular size and function. Mild to moderate left atrial dilatation. Diffuse thickening of the aortic valve cusps with reduced excursion. Moderate aortic stenosis (GARCÍA 1.4 cm2 with a mean gradient of 40 mmHg). Right ventricular systolic pressure estimated to be elevated at > 45 mmHg. #Diaphoretic episode -Pt had many episodes of sweating, dizzeniss and weakness which lasted only for a few minutes, the patient denied any palpitation, weakness or shortness of breath associated with these episodes, most likely vasovagal mediated (given hiatal hernia) . ACS was ruled out by trending his troponin and EKG as his trops was a little high on admission demand ischemia or due to CKD rather than due to ACS, he was monitored on telemetry, checked I's and O's and daily weight, was given Tigan when necessary for nausea. #Hiatal hernia he was maintained on aspiration precautions. the patient is not a surgical candidate given his age and general condition. He was treated with omeprazol, kept HOB elevated, diet as tolerated. PRN inhaler when needed. . #History of atrial fibrillation -He Continued on Eliquis and aspirin. -His Echocardiogram yesterday showed Mildly increased left ventricular wall thickness, LV EF more than 65 and moderate #BPH The patient had a history of BPH. he was kept on finasteride and terazosin. #Hypothyroidism TSH was low and FT4 elevated. his home levothryoxine dose was decreased to 137mcg daily, on empty stomach As per Dr Toni espinoza.He was advised to take Calcium and iron by 4 hours from thyroid medications .he was advised to repeat thyroid function in 4-6 weeks, in outpatient. thyroid antibodies namely antithyroid peroxidase and anti-thyroglobulin were normal. - DVT prophylaxis:Eliquis -Diet: Heart healthy. -CODE STATUS: DNR/DNI Allergies: Coded Allergies: rabeprazole (PER PT DOESNT REMEMBER 12/08/15) rosuvastatin (NERVOUS 12/08/15) simvastatin (NERVOUS 12/08/15) oxycodone (Intermediate, ITCHING 12/08/15) Disposition Summary Disposition Principal Diagnosis: 1.Vasovagal attacks. 2. Hiatal hernia Additional Diagnosis: 1. History of A-fib. 2. BPH. 3. Hypothyroidism Discharge Disposition: home or self care Discharge Instructions General Discharge Information Code Status: Do Not Resucitate/Intubat Patient's Diet: heart healthy diet. Patient's Activity: as tolerated Follow-Up Instructions/Appts: 1.PLEASE FOLLOW UP WITH YOUR pcp IN 1 WEEK OF DISCHARGE. 2. PLEASE FOLLOW UP WITH YOUR GASTROENTROLOGIST IN 1 WEEK OF DISCHARGE. 3.PLEASE FOLLOW UP WITH YOUR HOGSHEAD WRECKER IN 1 WEEK OF DISCHARGE 4. PLEASE TAKE MEDICATION PRESCRIBED Medications at Discharge Discharge Medications: Stop taking the following medications: Levothyroxine Sodium (Levothyroxine Sodium) 88 MCG TABLET ORAL DAILY BEFORE BREAKFAST Continue taking these medications: Calcium Carb & Citrate/Vit D3 (Calcium + D3 ER Tablet) 600 MG CALCIUM-500 UNIT TABLET.ER 1 Tablet ORAL Every night Qty = 30 Instructions: PLEASE TAKE ONE TAB AT LEAST 4 HOURS AFTER LEVOTHYROXIN Comments: Last Taken: 04/23/17 Time: 10:00 AM Citalopram Hydrobromide (Celexa) 40 MG TABLET 1 Tablet ORAL DAILY Comments: Last Taken: 04/23/17 Time: 10:00 AM Cyanocobalamin (Vitamin B-12) 1,000 MCG TABLET 1 Tablet ORAL DAILY Comments: Last Taken: 04/23/17 Time: 10:00 AM Multivitamin (Multiple Vitamins) 1 EACH TABLET 1 Tablet ORAL Every night Comments: Last Taken: 04/22/17 Time: 9:45 PM Terazosin HCl (Terazosin HCl) 5 MG CAPSULE 1 Capsule ORAL Every night Qty = 60 Comments: DOXAZOSIN GIVEN SUBSTITUTE Last Taken: 04/22/17 Time: 9:45 PM Atorvastatin Calcium (Lipitor) 40 MG TABLET 0.5 Tablet ORAL Every night Comments: Last Taken: 04/22/17 Time: 9:45 PM Omeprazole (Omeprazole) 20 MG CAPSULE.DR 1 Capsule ORAL DAILY Comments: Last Taken: 04/23/17 Time: 10:00 AM Ferrous Sulfate (Ferosul) 325 MG (65 MG IRON) TABLET 1 Tablet ORAL DAILY Qty = 30 Instructions: PLEASE TAKE 1 TAB AT LEAST 4 HOURS AFTER LEVOTHYROXINE Comments: Last Taken: 04/23/17 Time: 10:00 AM Furosemide (Furosemide) 20 MG TABLET 1 Tablet ORAL DAILY Comments: Last Taken: 04/23/17 Time: 10:00 AM Apixaban (Eliquis) 2.5 MG TABLET 1 Tablet ORAL TWICE DAILY Comments: Last Taken: 04/23/17 Time: 10:00 AM Finasteride (Finasteride) 5 MG TABLET 1 Tablet ORAL DAILY Comments: Last Taken: 04/23/17 Time: 10:00 AM Start taking the following new medications: Levothyroxine Sodium (Levothyroxine Sodium) 137 MCG TABLET 1 Tablet ORAL DAILY BEFORE BREAKFAST Qty = 30 No Refills Instructions: PLEASE TAKE 1 TAB BEFORE BREAKFAST ON AN EMPTY STOMACH Comments: Last Taken: 04/23/17 Time: 6:15 AM Copies To: JENELLE WORLEY,LIDA Enriquez; SULEMAN WORLEY,JAIME Ocasio; ANDREIA WORLEY,KEN; FOX WORLEY, RONAK Medina Attending MD Review Statement Documenting Attending: CHHAYA AVALOS MD Other Findings: The patient was seen and discussed with house staff. Agree with the plan of care upon discharge as above. On ECHO does have moderate to severe and will be addressed by his primary civil service clerk. Levothyroxine dosage decreased as above and will need follow-up TSH/Free T4 in 6 weeks.
--- NOTE | 2017-04-23 09:57 | PN- Pulmonary ---
Subjective HPI/Critical Care Issues: Looks better DID have some sweats yesterday Objective Current Medications: Current Medications Sig/Lamar Start time Last Medication Dose Route Stop Time Status Admin Acetaminophen 650 MG Q6P PRN 04/20 1845 AC 04/21 PO 0928 Apixaban 2.5 MG BID 04/20 2200 AC 04/22 PO 2144 Aspirin 81 MG DAILY 04/21 1000 AC 04/22 PO 0908 Atorvastatin Calcium 20 MG QPM 04/21 2200 AC 04/22 PO 2144 Calcium/Vitamin D 500 MG DAILY 04/21 1000 AC 04/22 PO 0908 Citalopram 40 MG DAILY 04/21 1000 AC 04/22 Hydrobromide PO 0907 Cyanocobalamin 1,000 MCG DAILY 04/21 1000 AC 04/22 PO 0907 Docusate Sodium 100 MG BID 04/21 2200 AC 04/22 PO 2144 Doxazosin Mesylate 2 MG AT BEDTIME 04/20 2200 AC 04/22 PO 2144 Ferrous Sulfate 325 MG DAILY 04/21 1000 AC 04/22 PO 1028 Finasteride 5 MG DAILY 04/21 1000 AC 04/22 PO 0907 Furosemide 20 MG DAILY 04/21 1000 AC 04/22 PO 0907 Levothyroxine Sodium 0.137 MG DAILY AC 04/22 0700 AC 04/23 PO 0615 Multivitamins 1 TAB QPM 04/20 2200 AC 04/22 Therapeutic PO 2144 Omeprazole 20 MG DAILY 04/21 1000 AC 04/22 PO 0908 Polyethylene Glycol 17 GM DAILY 04/21 1825 AC 04/22 PO 0900 Trimethobenzamide HCl 200 MG TID PRN 04/20 2015 AC 04/20 IM 2045 Vital Signs & I&O Last 24 Hrs of Vitals and I&O: Vital Signs Date Time Temp Pulse Resp B/P B/P Pulse O2 O2 Flow FiO2 Mean Ox Delivery Rate 04/23 0637 97.9 53 20 130/60 96 Room Air 04/22 2217 97.9 64 20 130/54 96 Room Air 04/22 1455 97.6 61 20 120/50 96 Room Air Intake & Output 04/23 1600 04/23 0800 04/23 0000 Intake Total 240 450 Output Total 700 350 Balance -460 100 Intake, Oral 240 450 Number 1 Bowel Movements Output, Urine 700 350 Impression/Plan Impression/Plan Impression/Plan: 04/20/17: CT ABDOMEN AND PELVIS WITHOUT CONTRAST- - Stable appearing very large hiatal hernia with the entire stomach and the gastroduodenal junction located within the thoracic cavity. There is no bowel obstruction and there are no inflammatory changes surrounding the large or the small bowel. Small fat-containing umbilical hernia. - There is a stable appearing elongated cyst adjacent to the uncinate process, most likely a pseudocyst. - Bladder diverticula along the upper aspect of the bladder have increased in size. Mild diffuse gallbladder wall thickening again noted. Prostate gland is elongated in the craniocaudal dimension. - Small pericardial effusion. Clear lung bases. - Diverticulosis without evidence of acute diverticulitis. 04/20/17: US ABDOMEN (RUQ) LIMITED- Limited examination without evidence of cholelithiasis or cholecystitis. Normal CBD 4 mm. Well-developed, well-nourished, elderly male, in no apparent distress. Sclera anicteric. Conjunctiva pink. No lid lag. No exopthalmos. Oropharynx clear. No oral thrush. No aphthous ulcers. False uppers. Partial lowers. There is no adenopathy, thyromegaly, or JVD. No peripheral stigmata of inflammatory bowel disease or chronic liver disease on exam. No spiders on the anterior chest wall. No gynecomastia. No CVA tenderness. No definite point spine tenderness. Mild lordosis. Lungs: clear to A&P. Heart exam: regular rate rhythm, S1 and S2, with III/ systolic murmur. Abdominal exam: normal bowel sounds, soft belly, nontender, without guarding or rebound. Rectus diastasis. Small reducible umbilical hernia, otherwise, no mass. No organomegaly. Negative Saini sign. No fluid shift. No pulsatile mass. No epigastric bruit. Extremities: without cyanosisor clubbing. Trace pedal edema B/L. Positive DJD. B/L TKR scars. No palpable cords. Distal pulses 1+ bilaterally. DTRs 1+ bilaterally. Alert and oriented x 3. No tremor. Motor 5/5 B/L. IMPRESSION 87-year-old gentleman with PMH of hypertension, hyperlipidemia, hypothyroidism , BPH, hiatal hernia and chronic back pain , Afib on ELiquis, Aortic stenosis, recurrent uti with abx recently, Hypothyroid on supp now with tfs sugg of overreplacement, He presents to the emergency department complaining of repeated vomiting, nausea and weakness ISSUES REsolved Vomiting related to hiatal hernia with food intol Prob Near neurocardiogenic syncope now better No sig pna PT with hypothryoid was on slightly higher dose of levoxyl with clinically and lab quintana hyperthyroid and this is causing the issues aswell Aortic stenosis BPH with recurrent uti REC Cont all meds Prob can hold levoxyl for few days and resume the current dose which he is receiving (ask ENdo) Prn inhalers if the patient is coughing Stable for dc Will sign off WIll follow closely prn as out pt
--- NOTE | 2017-04-23 12:04 | PN- Cardiology ---
Subjective Subjective: Patient feels well without chest pain or dyspnea; does get episodes of diaphoresis. Objective Vital Signs and I&Os Vital Signs Date Time Temp Pulse Resp B/P B/P Pulse O2 O2 Flow FiO2 Mean Ox Delivery Rate 04/23 0637 97.9 53 20 130/60 96 Room Air 04/22 2217 97.9 64 20 130/54 96 Room Air 04/22 1455 97.6 61 20 120/50 96 Room Air Intake & Output 04/23 1600 04/23 0804/23 0000 04/22 1600 04/22 0800 04/22 0000 Intake Total 240 450 520 840 400 Output Total 700 350 350 450 600 Balance -460 100 170 390 -200 Intake, IV 600 Intake, Oral 240 450 520 240 400 Number 1 0 Bowel Movements Output, Urine 700 350 350 450 600 Physical Exam: General: no apparent distress. Alert. Eyes: No obvious scleral icterus. HEENT: No jugular venous distention or abnormal jugular venous pulsations. Cardiovascular: Normal intensity S1/S2. Regular, 3/6 systolic murmur Respiratory: Lungs clear to auscultation bilaterally. Abdomen: Soft, nontender with no guarding or rebound tenderness. Musculoskeletal: No clubbing or cyanosis noted, no edema Skin: Surgical scar noted Neurologic: No gross focal deficits noted. Current Medications: Current Medications Sig/Lamar Start time Last Medication Dose Route Stop Time Status Admin Acetaminophen 650 MG Q6P PRN 04/20 1845 AC 04/21 PO 0928 Apixaban 2.5 MG BID 04/200 AC 04/23 PO 1010 Aspirin 81 MG DAILY 04/21 1000 AC 04/23 PO 1009 Atorvastatin Calcium 20 MG QPM 04/21 2200 AC 04/22 PO 2144 Calcium/Vitamin D 500 MG DAILY 04/21 1000 AC 04/23 PO 1010 Citalopram 40 MG DAILY 04/21 1000 AC 04/23 Hydrobromide PO 1009 Cyanocobalamin 1,000 MCG DAILY 04/21 1000 AC 04/23 PO 1011 Docusate Sodium 100 MG BID 04/21 2200 AC 04/22 PO 2144 Doxazosin Mesylate 2 MG AT BEDTIME 04/200 AC 04/22 PO 2144 Ferrous Sulfate 325 MG DAILY 04/21 1000 AC 04/23 PO 1010 Finasteride 5 MG DAILY 04/21 1000 AC 04/23 PO 1011 Furosemide 20 MG DAILY 04/21 1000 AC 04/23 PO 1010 Levothyroxine Sodium 0.137 MG DAILY AC 04/22 0700 AC 04/23 PO 0615 Multivitamins 1 TAB QPM 04/20 2200 04/22 Therapeutic PO 2144 Omeprazole 20 MG DAILY 04/21 1000 AC 04/23 PO 1011 Polyethylene Glycol 17 GM DAILY 04/21 1825 04/22 PO 0900 Trimethobenzamide HCl 200 MG TID PRN 04/20 2015 04/20 IM 5 Results Last 48 Hrs of Labs/Mics: Laboratory Tests 04/23/17 0630: Anion Gap 6, Estimated GFR 52 L, BUN/Creatinine Ratio 18.5, Calcium 8.8, Phosphorus 3.8, Magnesium 1.9, Troponin I 0.14 *H, CBC w Diff NO MAN DIFF REQ, RBC 3.05 L, MCV 96.4 H, MCH 32.0 H, RDW 13.9, MPV 9.4, Gran % 59.3, Lymphocytes % 25.6, Monocytes % 12.1 H, Eosinophils % 2.6, Basophils % 0.4, Absolute Granulocytes 4.6, Absolute Lymphocytes 2.0, Absolute Monocytes 0.9 H, Absolute Eosinophils 0.2, Absolute Basophils 0, PUBS MCHC 33.1 04/22/17 1535: Troponin I Cancelled 04/22/1715: Anion Gap 6, Estimated GFR 48 L, BUN/Creatinine Ratio 16.4, Calcium 8.5, Magnesium 1.9, Troponin I 0.41 *H, CBC w Diff NO MAN DIFF REQ, RBC 3.03 L, MCV 97.7 H, MCH 32.1 H, RDW 13.7, MPV 9.2, Gran % 62.4, Lymphocytes % 25.6, Monocytes % 9.2, Eosinophils % 2.4, Basophils % 0.4, Absolute Granulocytes 4.8, Absolute Lymphocytes 2.0, Absolute Monocytes 0.7 H, Absolute Eosinophils 0.2, Absolute Basophils 0, PUBS MCHC 32.8 L 04/21/17 1756: Troponin I 0.38 *H Recent Imaging Studies: Telemetry tracings were personally reviewed and shows sinus rhythm and sinus bradycardia Echocardiogram Left ventricular cavity size normal. No obvious regional wall motion abnormalities. Left ventricular wall thickness mildly increased. Hyperdynamic left ventricular systolic function. Left ventricular ejection fraction is estimated at > 65 %. Normal right ventricular size and function. Mild to moderate left atrial dilatation. Diffuse thickening of the aortic valve cusps with reduced excursion. Moderate aortic stenosis (GARCÍA 1.4 cm2 with a mean gradient of 40 mmHg). Right ventricular systolic pressure estimated to be elevated at > 45 mmHg. Rasheed Marshall M.D. (Electronically Signed) Final Date: 22 April 2017 21:04 Assessment/Plan Assessment/Plan 1. Nausea/vomiting likely due to large hiatal hernia 2. Elevated troponin with consistent with demand ischemia 3. Chronic renal insufficiency 4. Paroxysmal atrial fibrillation on Eliquis 5. History of chronic dyspnea on exertion with ?CAD 6. 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 Moderate aortic stenosis by echocardiogram 8. Thyroid disorder Patient's echocardiogram shows no wall motion abnormalities and telemetry shows no evidence of sustained arrhythmia. He does have moderate aortic stenosis by echocardiogram which he will continue to follow with his primary project systems engineer. His thyroid medication was adjusted by endocrinology. He will follow his Eliquis dosing with his primary project systems engineer based on future creatinine levels. José Miguel Marshall MD [facility] Continue telemetry? No
--- NOTE | 2017-04-23 14:10 | Patient Discharge Instructions ---
Discharge Instructions General Discharge Information You were seen/treated for: 1-vasovagal attacks. 2- Hiatal hernia 3- History fo A fib Special Instructions: 1- please follow up with your pcp in 1 week of discharge 2- please follow up with your rough planer tender in 1 week of discharge 3- please follow up with your gastroentrologist in 1 week of discharge Diet Continue normal diet: Yes Recommended Diet: Gluten Free, Heart Healthy Activity Full Activity/No Limits: Yes Acute Coronary Syndrome Inclusion Criteria At DC or during hospital stay patient has or had the following: ACS DIAGNOSIS No Discharge Core Measures Meds if any: Prescribed or Continued at Discharge Meds if any: NOT Prescribed or Continued at Discharge Congestive Heart Failure Inclusion Criteria At DC or during hospital stay patient has or had the following: CHF DIAGNOSIS No Discharge Core Measures Meds if any: Prescribed or Continued at Discharge Meds if any: NOT Prescribed or Continued at Discharge Cerebrovascular accident Inclusion Criteria At DC or during hospital stay patient has or had the following: CVA/TIA Diagnosis No Discharge Core Measures Meds if any: Prescribed or Continued at Discharge Meds if any: NOT Prescribed or Continued at Discharge Venous thromboembolism Inclusion Criteria VTE Diagnosis No VTE Type NONE VTE Confirmed by (Test) NONE Discharge Core Measures - Per Current guidelines, there needs to be overlap - treatment for the first 5 days of Warfarin therapy. - If discharged on Warfarin prior to 5 days of - overlap therapy, the patient will need to be - assessed for post discharge needs including - *Post discharge parental anticoagulation - *Warfarin and/or parental anticoagulation education - *Follow up date to check INR post discharge At least 5 days overlap therapy as Inpatient No Meds if any: Prescribed or Continued at Discharge Note: Overlap Therapy is Warfarin and Anticoagulant Meds if any: NOT Prescribed or Continued at Discharge
[2017-04-23 14:36] VITALS: BP 102/50
[2017-04-23] MEDS ORDERED: LEVOTHYROXINE137 MCG PO ×2 (14:55→15:51)
== END 2017-04-23 16:27 | DRG 392 ==
LOC: ERH 11:57 → ERHI 16:51 → 1NO 16:51 → ENRESERV 18:05 → ERHI 18:49 → ENTRNSPT 19:17 → CANBEDREQ 19:18 → EDTRNSPTSTS 19:36 → 1NO 19:42 → CMPTRNSPT 19:54 → 1NO 20:50 → ENPENDDIS 04-23 15:46 → 1NO 04-23 16:27
PROVIDERS: Emergency Medicine; Internal Medicine Infectious Disease; Student in an Organized Health Care Education/Training Program; ADMIT Internal Medicine
DX: K44.9 Diaphragmatic hernia without obstruction or gangrene (principal); I24.8 Other forms of acute ischemic heart disease; I31.3 Pericardial effusion (noninflammatory); K86.3 Pseudocyst of pancreas; I48.0 Paroxysmal atrial fibrillation; I12.9 Hypertensive chronic kidney disease with stage 1 through stage 4 chronic kidney disease, or unspecified chronic kidney disease; R55 Syncope and collapse; F32.9 Major depressive disorder, single episode, unspecified; E05.90 Thyrotoxicosis, unspecified without thyrotoxic crisis or storm; N18.3 Chronic kidney disease, stage 3 (moderate); Z79.01 Long term (current) use of anticoagulants; I44.0 Atrioventricular block, first degree; I44.7 Left bundle-branch block, unspecified; E89.0 Postprocedural hypothyroidism; T38.1X5A Adverse effect of thyroid hormones and substitutes, initial encounter; I25.10 Atherosclerotic heart disease of native coronary artery without angina pectoris; N40.0 Benign prostatic hyperplasia without lower urinary tract symptoms; D53.9 Nutritional anemia, unspecified; I35.0 Nonrheumatic aortic (valve) stenosis; Z66 Do not resuscitate; K57.90 Diverticulosis of intestine, part unspecified, without perforation or abscess without bleeding; M54.9 Dorsalgia, unspecified; G89.29 Other chronic pain; Z86.010 Personal history of colon polyps; F41.9 Anxiety disorder, unspecified; M85.80 Other specified disorders of bone density and structure, unspecified site; K42.9 Umbilical hernia without obstruction or gangrene; Z85.828 Personal history of other malignant neoplasm of skin
CPT/HCPCS: 1NSP; 36415; 74176; 82436; 86376; 86800; 93005; 93010; 93306; J2405; J2765; J3250; J3490

== ENCOUNTER 2018-02-08 17:26 | Emergency (ER) | payer OTHER ==
[~2018-02-08] VITALS: Ht 172.7 cm; Wt 86.2 kg
[~2018-02-08 17:26] MED LIST changes: +DULERA 200 MCG/13 GM INH; +ELIQUIS2.5 M1 PO; +FINASTERIDE5 M1 PO; +FUROSEMIDE20 M1 PO; +LATANOPROST2.5 ML OU; +LEVOTHYROXINE137 MCG PO; +PATADAY2.5 ML OU; +SYSTANE 0.3-0.415 ML OU; +TAMSULOSIN HCL0.4 M1 PO
[2018-02-08 17:30] VITALS: BP 139/67
[2018-02-08 18:55] LABS: ABSOLUTE BASOPHIL COUNT 0 /CUMM (0.0-0.2); ABSOLUTE EOSINOPHIL COUNT 0.3 /CUMM (0.0-0.7); ABSOLUTE GRANULOCYTE CT 7.5 /CUMM (1.4-6.5); ABSOLUTE LYMPH COUNT 2.3 /CUMM (1.2-3.4); BASOPHIL % 0.4 % (0.0-2.0); EOSINOPHIL % 2.6 % (0-5); GRANULOCYTE % 67.8 % (42.2-75.2); HEMATOCRIT 31.1 % (42-52); MEAN CORPUSCULAR HGB 30.7 PG (27.0-31.0); MEAN CORPUSCULAR HGB CONC 32.4 G/DL (33.0-37.0); MEAN CORPUSCULAR VOLUME 94.8 FL (80.0-94.0); MEAN PLATELET VOLUME 9.4 FL (7.4-10.4); PLATELET COUNT 233 /CUMM (130-400); RBC DISTRIBUTION WIDTH 15.1 % (11.5-14.5); RED BLOOD CELL CT 3.29 /CUMM (4.70-6.10)
[2018-02-08] MEDS ORDERED: CIPROFLOXACIN250 M1 PO (19:42)
--- NOTE | 2018-02-08 19:42 | ED GI/GU/ABDOMINAL COMPLAINT ---
History of Present Illness General Chief Complaint: General Adult Stated Complaint: ?KIDNEY INFECTION Source: patient Exam Limitations: no limitations Vital Signs & Intake/Output Vital Signs & Intake/Output Vital Signs Date Time Temp Pulse Resp B/P B/P Pulse O2 O2 Flow FiO2 Mean Ox Delivery Rate 02/08 1730 98.0 64 15 139/67 96 Room Air Room Air Allergies Coded Allergies: rabeprazole (PER PT DOESNT REMEMBER 02/08/18) rosuvastatin (NERVOUS 02/08/18) simvastatin (NERVOUS 02/08/18) oxycodone (Intermediate, ITCHING 02/08/18) Reconcile Medications Apixaban (Eliquis) 2.5 MG TABLET 1 TAB PO BID BLOOD THINNER (Reported) Atorvastatin Calcium (Lipitor) 40 MG TABLET 0.5 TAB PO QPM CHOLESTEROL ( Reported) Calcium Carb & Citrate/Vit D3 (Calcium + D3 ER Tablet) 600 MG CALCIUM-500 UNIT TABLET.ER 1 TAB PO QPM SUPPLEMENT (Reported) PLEASE TAKE ONE TAB AT LEAST 4 HOURS AFTER LEVOTHYROXIN Ciprofloxacin HCl 250 MG TABLET 1 TAB PO BID UTI Citalopram Hydrobromide (Celexa) 40 MG TABLET 1 TAB PO DAILY MENTAL HEALTH ( Reported) Cyanocobalamin (Vitamin B-12) 1,000 MCG TABLET 1 TAB PO DAILY VITAMIN SUPPORT (Reported) Ferrous Sulfate (Ferosul) 325 MG (65 MG IRON) TABLET 1 TAB PO DAILY SUPPLEMENT (Reported) PLEASE TAKE 1 TAB AT LEAST 4 HOURS AFTER LEVOTHYROXINE Finasteride 5 MG TABLET 1 TAB PO DAILY PROSTATE (Reported) Furosemide 20 MG TABLET 1 TAB PO DAILY WATER RETENTION (Reported) Latanoprost 0.005 % DROPS 1 GTT OU QPM GLAUCOMA (Reported) Levothyroxine Sodium 137 MCG TABLET 1 TAB PO DAILY AC HYPOTHYROIDISM PLEASE TAKE 1 TAB BEFORE BREAKFAST ON AN EMPTY STOMACH Mometasone/Formoterol (Dulera 200 Mcg/5 Mcg Inhaler) 200 MCG-5 MCG/ACTUATION HFA.AER.AD 1 PUF INH AD PRN RESP. (Reported) Multivitamin (Multiple Vitamins) 1 EACH TABLET 1 TAB PO QPM SUPPLEMENT ( Reported) Olopatadine HCl (Pataday) 0.2 % DROPS 1 GTT OU DAILY ALLERGIES (Reported) Omeprazole 20 MG CAPSULE.DR 1 CAP PO BID GI (Reported) Propylene Glycol/Peg 400 (Systane 0.3-0.4% Eye Drops) 0.3 %-0.4 % DROPS 1 GTT OU AD PRN DRY EYES (Reported) Tamsulosin HCl 0.4 MG CAP.ER.24H 1 CAP PO QPM PROSTATE (Reported) Terazosin HCl 5 MG CAPSULE 1 CAP PO QPM BPH (Reported) Triage Note: PT TO ED FOR C/C OF DARK URINE. PT SEEN AND DIAGNOSED [facility] WITH UTI ON SUNDAY AND PRESCRIBED ANTIBIOTICS, BUT THEY HAVEN'T BEEN DELIVERED YET. PT HAS HX OF POOR KIDNEY FUNCTIONS. +BURNING WITH URINATION. DENIES ABD PAIN. Triage Nurses Notes Reviewed? yes HPI: 87M PMH coronary artery disease, BPH, depression, hypothyroidism, atrial fibrillation on Eliquis with 6 days of dysuria and dark colored, foul smelling urine, [facility] for [facility] as they told him he would, presenting today with worsening of dysuria. He denies any systemic symptoms, denying fever, chills, headache, diaphoresis, sore throat, chest pain, SOB, abdominal pain, flank pain, diarrhea. He has had UTIs before, and this is consistent with prior presentations. No other complaints. Past History Travel History Traveled to [place] past 21 day No Medical History Any Pertinent Medical History? 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 FATHER, , Age 37; Cause: Accident at workplace. BROTHER, ; Cause: Arteriosclerotic heart disease (ASHD). BROTHER, ; Cause: Arteriosclerotic heart disease (ASHD). BROTHER, ; Cause: Arteriosclerotic heart disease (ASHD). SISTER, ; Cause: CVA (cerebral vascular accident). MOTHER (anemia). , Age 73; Cause: CRF (chronic renal failure). Relation not specified for: colon cancer FH: myocardial infarction FH: pancreatic cancer FHx: stroke Hx Contributory? No Review of Systems Review of Systems Constitutional: Reports: no symptoms. EENTM: Reports: no symptoms. Respiratory: Reports: no symptoms. Cardiovascular: Reports: no symptoms. GI: Reports: no symptoms. Genitourinary: Reports: no symptoms. Musculoskeletal: Reports: no symptoms. Skin: Reports: no symptoms. Neurological/Psychological: Reports: no symptoms. Hematologic/Endocrine: Reports: no symptoms. Immunologic/Allergic: Reports: no symptoms. All Other Systems: Reviewed and Negative Physical Exam Physical Exam General Appearance: well developed/nourished, no apparent distress Head: atraumatic, normal appearance Eyes: Bilateral: normal appearance. Ears, Nose, Throat, Mouth: hearing grossly normal, moist mucous membrane Neck: normal inspection, supple Respiratory: normal breath sounds, no respiratory distress Cardiovascular: regular rate/rhythm Gastrointestinal: soft, non-tender Back: normal inspection, normal range of motion Extremities: normal range of motion Neurologic/Psych: awake, alert, oriented x 3, normal mood/affect Skin: intact, normal color, warm/dry Core Measures ACS in differential dx? No Sepsis Present: No Sepsis Focused Exam Completed? No Progress Differential Diagnosis: AAA, AMI, appendicitis, biliary colic, bowel obstruction , colon cancer, cholecystitis, diverticulitis, epididymitis, esophageal varices, gastritis, hepatitis, hernia, hemorrhoids, ischemic bowel, inflamm bowel dis, Mandi-Shante tear, orchitis, pancreatitis, prostatitis, peptic ulcer, PUD/GERD, perforated viscous, pyelonephritis, SBO, STD, testicular torsion, ureterolithiasis, urinary retention, urethritis, UTI/pyelo Plan of Care: Orders Procedure Date/time Status CULTURE,URINE 02/09 1736 Active URINALYSIS 02/09 1736 Complete COMPREHENSIVE METABOLIC PANEL 02/09 1736 Complete CBC WITHOUT DIFFERENTIAL 02/09 1736 Complete Laboratory Tests 02/08/181810: Urinalysis LIGHT H, Urine Color ORANG H, Urine Clarity CLDY H, Urine pH 6.5, Ur Specific [place] 1.025, Urine Protein >=300 H, Urine Ketones TRACE H, Urine Nitrite POS H, Urine Bilirubin NEG@ICTO, Urine Urobilinogen 0.2, Ur Leukocyte Esterase SMALL H, Ur Microscopic SEDIMENT EXAMINED, Urine RBC >75 H, Urine WBC 5-10 H, Urine Bacteria MOD H, Urine Hemoglobin LARGE H, Urine Glucose NEG 02/08/18 1758: Anion Gap 11, Estimated GFR 44 L, BUN/Creatinine Ratio 14.0, Glucose 87, Calcium 8.6, Total Bilirubin 0.8, AST 23, ALT 13 L, Alkaline Phosphatase 102, Total Protein 6.8, Albumin 3.5, Globulin 3.3, Albumin/Globulin Ratio 1.1, CBC w Diff NO MAN DIFF REQ, RBC 3.29 L, MCV 94.8 H, MCH 30.7, MCHC 32.4 L, RDW 15.1 H, MPV 9.4, Gran % 67.8, Lymphocytes % 20.5, Monocytes % 8.7, Eosinophils % 2.6 , Basophils % 0.4, Absolute Granulocytes 7.5 H, Absolute Lymphocytes 2.3, Absolute Monocytes 1.0 H, Absolute Eosinophils 0.3, Absolute Basophils 0 Microbiology 02/08 1811 URINE ROUT: Urine Culture - RECD Initial ED EKG: none Departure Departure Disposition: HOME OR SELF CARE Condition: Stable Clinical Impression Primary Impression: UTI (urinary tract infection) Referrals: Sofia WORLEY,Rob Enriquez (PCP/Family) Additional Instructions: Follow up with your PCP. Return to ER if any new or worsening symptoms. Departure Forms: Customer Survey General Discharge Information Prescriptions: Current Visit Scripts Ciprofloxacin HCl 1 TAB PO BID #14 TAB
== END 2018-02-08 20:00 ==
LOC: ERH 17:26
PROVIDERS: Internal Medicine
DX: N39.0 Urinary tract infection, site not specified (principal)
CPT/HCPCS: 81001; 87086

== ENCOUNTER 2018-04-08 12:20 | Inpatient (IN) | payer OTHER ==
[~2018-04-08] VITALS: Ht 175.3 cm; Wt 86.4 kg
[~2018-04-08 12:20] MED LIST changes: +CIPROFLOXACIN250 M1 PO
--- NOTE | 2018-04-08 12:39 | ED GENERAL ADULT ---
History of Present Illness General Chief Complaint: General Adult Stated Complaint: RECTAL BLEEDING Source: patient, family Exam Limitations: poor historian Vital Signs & Intake/Output Vital Signs & Intake/Output Vital Signs Date Time Temp Pulse Resp B/P B/P Pulse O2 O2 Flow FiO2 Mean Ox Delivery Rate 04/08 1445 98.6 60 18 132/68 98 Room Air Room Air 04/08 1257 Room Air 04/08 1228 97.3 60 20 104/60 98 Room Air Allergies Coded Allergies: rabeprazole (PER PT DOESNT REMEMBER 02/08/18) rosuvastatin (NERVOUS 02/08/18) simvastatin (NERVOUS 02/08/18) oxycodone (Intermediate, ITCHING 02/08/18) Reconcile Medications Apixaban (Eliquis) 2.5 MG TABLET 1 TAB PO BID BLOOD THINNER (Reported) Atorvastatin Calcium (Lipitor) 40 MG TABLET 0.5 TAB PO QPM CHOLESTEROL ( Reported) Calcium Carb & Citrate/Vit D3 (Calcium + D3 ER Tablet) 600 MG CALCIUM-500 UNIT TABLET.ER 1 TAB PO QPM SUPPLEMENT (Reported) PLEASE TAKE ONE TAB AT LEAST 4 HOURS AFTER LEVOTHYROXIN Cyanocobalamin (Vitamin B-12) 1,000 MCG TABLET 1 TAB PO DAILY VITAMIN SUPPORT (Reported) Escitalopram Oxalate (Lexapro) 20 MG TABLET 1 TAB PO DAILY MENTAL HEALTH ( Reported) Ferrous Sulfate (Ferosul) 325 MG (65 MG IRON) TABLET 1 TAB PO DAILY SUPPLEMENT (Reported) PLEASE TAKE 1 TAB AT LEAST 4 HOURS AFTER LEVOTHYROXINE Finasteride 5 MG TABLET 1 TAB PO DAILY PROSTATE (Reported) Furosemide 20 MG TABLET 1 TAB PO DAILY WATER RETENTION (Reported) Levothyroxine Sodium 137 MCG TABLET 1 TAB PO DAILY AC HYPOTHYROIDISM PLEASE TAKE 1 TAB BEFORE BREAKFAST ON AN EMPTY STOMACH Multivitamin (Multiple Vitamins) 1 EACH TABLET 1 TAB PO QPM SUPPLEMENT ( Reported) Omeprazole 20 MG CAPSULE.DR 1 CAP PO BID GI (Reported) Tamsulosin HCl 0.4 MG CAP.ER.24H 1 CAP PO QPM PROSTATE (Reported) Triage Note: PT TO ED WITH SON FOR EVAL OF RECTAL BLEEDING. PT WAS AT HIS PCP FOR PRE-OP CLEARANCE. PT TOLD PCP HE HAS HAD DIARRHEA THE LAST FEW DAYS WITH SOME BLOOD IN IT. PT IS ON ELIQUIS. DENIES ANY PAIN. ADVISED TO COME TO ED FOR FURTHER EVAL. PT TAKEN TO ROOM 22. Triage Nurses Notes Reviewed? yes Onset: Abrupt Duration: hour(s): Timing: recent history HPI: 04/08/18 2:20 PM 88-year-old male presents to the emergency department for an episode of rectal bleeding. According to the patient's son he was in his usual state of health but did have some diarrhea. This morning he had an episode of bright red blood per rectum. He has a past medical history of atrial fibrillation and is on Elliquis. He also admits to shortness of breath which is for the most part chronic. He denies any abdominal pain, he is guaiac positive on rectal exam Past History Travel History Traveled to [place] past 21 day No Medical History Any Pertinent Medical History? 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 FATHER, , Age 37; Cause: Accident at workplace. BROTHER, ; Cause: Arteriosclerotic heart disease (ASHD). BROTHER, ; Cause: Arteriosclerotic heart disease (ASHD). BROTHER, ; Cause: Arteriosclerotic heart disease (ASHD). SISTER, ; Cause: CVA (cerebral vascular accident). MOTHER (anemia). , Age 73; Cause: CRF (chronic renal failure). Relation not specified for: colon cancer FH: myocardial infarction FH: pancreatic cancer FHx: stroke Hx Contributory? No Review of Systems Review of Systems Constitutional: Denies: fever. EENTM: Reports: no symptoms. Respiratory: Reports: short of breath. Cardiovascular: Denies: chest pain. GI: Reports: no symptoms, bloody stool. Genitourinary: Reports: no symptoms. Musculoskeletal: Reports: no symptoms. Skin: Reports: no symptoms. Neurological/Psychological: Reports: no symptoms. Hematologic/Endocrine: Reports: bleeding. Immunologic/Allergic: Reports: no symptoms. Physical Exam Physical Exam General Appearance: well developed/nourished, alert, awake, anxious, moderate distress Head: atraumatic, normal appearance Eyes: Bilateral: normal appearance, PERRL, EOMI. Ears, Nose, Throat: normal pharynx, normal ENT inspection Neck: normal inspection, full range of motion Respiratory: normal breath sounds, chest non-tender, no respiratory distress Cardiovascular: irregularly irregular Peripheral Pulses: 4+ brachial (L), 4+ radial (R) Gastrointestinal: non-tender Rectal: heme positive stool Back: normal range of motion Extremities: pedal edema Neurologic/Psych: no motor/sensory deficits, awake, alert, oriented x 3 Skin: intact, normal color, warm/dry Core Measures ACS in differential dx? No CVA/TIA Diagnosis: No Sepsis Present: No Sepsis Focused Exam Completed? No Progress Differential Diagnoses I considered the following diagnoses in my evaluation of the patient: [Uropathy, diverticulosis, pulmonary embolism, pneumonia, symptomatic anemia] Plan of Care: Orders Procedure Date/time Status Nothing by Mouth 04/08 D Active Pathway - chart 04/08 1504 Active House Staff 04/08 1504 Active Patient Data 04/08 1504 Active Code Status 04/08 1504 Active XRY-PORTABLE CHEST XRAY 04/08 1502 Active Patient Data 04/08 1449 Active ED Holding Orders 04/08 1445 Active Admit to inpatient 04/08 1445 Active Vital Signs 04/08 1445 Active Code Status 04/08 1445 Complete TROPONIN LEVEL 04/08 1227 Complete PARTIAL THROMBOPLASTIN TIME 04/08 1227 Complete PROTHROMBIN TIME 04/08 1227 Complete CBC WITHOUT DIFFERENTIAL 04/08 1227 Complete BASIC METABOLIC PANEL 04/08 1227 Complete EKG 04/08 1227 Active TYPE & SCREEN (NOT X-MATCH) 04/08 1227 Complete VTE Mechanical Prophylaxis 04/08 UNK Active Telemetry/Electrician Substation 04/08 UNK Active Laboratory Tests 04/08/18 1255: Anion Gap 13, Estimated GFR 36 L, BUN/Creatinine Ratio 13.3, Glucose 116 H, Calcium 9.0, Troponin I 0.02, PT 17.9 H, INR 1.63 H, APTT 34, CBC w Diff NO MAN DIFF REQ, RBC 3.27 L, MCV 88.9, MCH 29.2, MCHC 32.9 L, RDW 16.7 H, MPV 8.8, Gran % 66.1, Lymphocytes % 20.3 L, Monocytes % 9.0, Eosinophils % 4.3, Basophils % 0.3, Absolute Granulocytes 7.7 H, Absolute Lymphocytes 2.4, Absolute Monocytes 1.0 H, Absolute Eosinophils 0.5, Absolute Basophils 0 Initial ED EKG: NSR, LBBB Prior EKG: unchanged Departure Departure Disposition: STILL A PATIENT Condition: Stable Clinical Impression Primary Impression: Rectal bleeding Secondary Impressions: Coagulopathy, Dyspnea Referrals: Sofia WORLEY,Rob Enriquez (PCP/Family) Departure Forms: Customer Survey General Discharge Information Admission Note Spoke With: Antonino Patricio MD Documentation of Exam: Documentation of any treatments & extenuating circumstances including Concerns Regarding Discharge (functional status, medication knowledge or non-compliance, living conditions, etc.) that warrant an admission rather than observation: [The patient needs admission for serial hemoglobin and hematocrits, serial troponin, follow the chest x-ray, GI consultation, serial hemoglobin and hematocrit, old records, consider cardiology and GI consults] Critical Care Note Critical Care Note Critical Care Time: 30-74 min
[2018-04-08] MEDS ORDERED: LEXAPRO20 M1 PO (12:44)
[2018-04-08 13:08] LABS: ABSOLUTE BASOPHIL COUNT 0 /CUMM (0.0-0.2); ABSOLUTE EOSINOPHIL COUNT 0.5 /CUMM (0.0-0.7); ABSOLUTE GRANULOCYTE CT 7.7 /CUMM (1.4-6.5); ABSOLUTE LYMPH COUNT 2.4 /CUMM (1.2-3.4); BASOPHIL % 0.3 % (0.0-2.0); EOSINOPHIL % 4.3 % (0-5); GRANULOCYTE % 66.1 % (42.2-75.2); HEMATOCRIT 29.1 % (42-52); MEAN CORPUSCULAR HGB 29.2 PG (27.0-31.0); MEAN CORPUSCULAR HGB CONC 32.9 G/DL (33.0-37.0); MEAN CORPUSCULAR VOLUME 88.9 FL (80.0-94.0); MEAN PLATELET VOLUME 8.8 FL (7.4-10.4); PLATELET COUNT 256 /CUMM (130-400); RBC DISTRIBUTION WIDTH 16.7 % (11.5-14.5); RED BLOOD CELL CT 3.27 /CUMM (4.70-6.10); WHITE BLOOD CELL COUNT 11.6 /CUMM (4.8-10.8)
[2018-04-08 13:25] LABS: PT 17.9 SEC (9.4-12.5); PTT 34 SEC (25-37)
--- NOTE | 2018-04-08 14:56 | History & Physical ---
Agatha Alcantara 04/08/18 1454: General Information and HPI History of Present Illness: Patient is an 88-year-old male with a past medical history of hiatal hernia, coronary artery disease, BPH, depression, hypothyroidism, atrial fibrillation on Eliquis, chronic back pain, renal insufficiency, microcytic anemia. Past GI problems include: Intraductal papillary mucinous neoplasm of the pancreas, large hiatal hernia reflux, diverticulosis coli, family history of colon cancer, diastasis of rectus sheath, umbilical hernia, history of gastric polyps (2016) inflammatory in nature, hemmorrhoids and bleeding per rectum. Hx was reported to us by the patient himself and his son Kasi in the ER. Today, he presented to us with bleeding per rectum X1 day. He was in the shower when he noticed bright red blood. His paper towel soaked up bright red blood. He passed "brown urine" today. Not associated with abd pain/nausea/dizziness/CP. He reported this episode to his PCP, who referrred him to [facility]. (Pt was going to see his PCP foor pre-op for TURP) He reports diarrhea X 2 days. He had a few episodes of watery stools yesterday. Pt reports UTI and "brown" urine in the past month. In the past week, he reports "black flakes" in his urine. ROS:Tiredness+, SOB at baseline. No CP/Abd pain/dizziness/fever/chills/cough/headache. Son reports that his appetite had decreased lately. Physical exam -Gen.: AO x3, cooperative, no distress, -HEENT: NCAT, PERRL, EOMI, anicteric sclera, moist mucous membranes -Neck: Supple, no JVD, trachea midline -Cardio: Normal S1/S2 without significant murmurs/gallops/rubs -Pulmonary: grossly normal air movement w/ clear auscultation -Abdomen: Soft, nontender, nondistended, bowel sounds intact -Neuro: AAOX3 -Extremity: Normal pulses, no cyanosis/clubbing/edema Allergies/Medications Allergies: Coded Allergies: rabeprazole (PER PT DOESNT REMEMBER 02/08/18) rosuvastatin (NERVOUS 02/08/18) simvastatin (NERVOUS 02/08/18) oxycodone (Intermediate, ITCHING 02/08/18) Home Med list Apixaban (Eliquis) 2.5 MG TABLET 1 TAB PO BID BLOOD THINNER (Reported) Atorvastatin Calcium (Lipitor) 40 MG TABLET 0.5 TAB PO QPM CHOLESTEROL ( Reported) Calcium Carb & Citrate/Vit D3 (Calcium + D3 ER Tablet) 600 MG CALCIUM-500 UNIT TABLET.ER 1 TAB PO QPM SUPPLEMENT (Reported) PLEASE TAKE ONE TAB AT LEAST 4 HOURS AFTER LEVOTHYROXIN Cyanocobalamin (Vitamin B-12) 1,000 MCG TABLET 1 TAB PO DAILY VITAMIN SUPPORT (Reported) Escitalopram Oxalate (Lexapro) 20 MG TABLET 1 TAB PO DAILY MENTAL HEALTH ( Reported) Ferrous Sulfate (Ferosul) 325 MG (65 MG IRON) TABLET 1 TAB PO DAILY SUPPLEMENT (Reported) PLEASE TAKE 1 TAB AT LEAST 4 HOURS AFTER LEVOTHYROXINE Finasteride 5 MG TABLET 1 TAB PO DAILY PROSTATE (Reported) Furosemide 20 MG TABLET 1 TAB PO DAILY WATER RETENTION (Reported) Levothyroxine Sodium 137 MCG TABLET 1 TAB PO DAILY AC HYPOTHYROIDISM PLEASE TAKE 1 TAB BEFORE BREAKFAST ON AN EMPTY STOMACH Multivitamin (Multiple Vitamins) 1 EACH TABLET 1 TAB PO QPM SUPPLEMENT ( Reported) Omeprazole 20 MG CAPSULE.DR 1 CAP PO BID GI (Reported) Tamsulosin HCl 0.4 MG CAP.ER.24H 1 CAP PO QPM PROSTATE (Reported) Past History Travel History Traveled to [place] past 21 day No Medical History Neurological: NONE EENT: NONE Cardiovascular: AFIB (PAF), hypertension, hyperlipidemia, CARDIAC BLOCKAGES Respiratory: NONE Gastrointestinal: GERD, hiatal hernia (large), umbilical hernia, diverticulosis coli colon adenoma pancreatic cyst- IPMN Hepatic: NONE Renal: chronic kidney disease, PROSTATITIS/BPH Hx UTI bladder diverticulum Musculoskeletal: chronic back pain, degen joint disease Psychiatric: anxiety (mild), depression Endocrine: HYPOTHYROID osteopenia (post HALL) Blood Disorders: anemia (macrocytic) Cancer(s): 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 FATHER, , Age 37; Cause: Accident at workplace. BROTHER, ; Cause: Arteriosclerotic heart disease (ASHD). BROTHER, ; Cause: Arteriosclerotic heart disease (ASHD). BROTHER, ; Cause: Arteriosclerotic heart disease (ASHD). SISTER, ; Cause: CVA (cerebral vascular accident). MOTHER (anemia). , Age 73; Cause: CRF (chronic renal failure). Relation not specified for: colon cancer FH: myocardial infarction FH: pancreatic cancer FHx: stroke Psychosocial History Where do you live? Home (sons visits him & brings food) Who Do You Live With? self Services at Home: Home Health Aide, Nursing Primary Language: Greenlandic ETOH Use: denies use Illicit Drug Use: denies illicit drug use Living Will? yes Power of Channel Sales Manager/HCP? yes Name of POA/HCP: Pt's 2 Nick barragan & [phone] Functional Ability ADLs Independent: dressing, eating, toileting, bathing. Ambulation: independent IADLs Independent: shopping, housework, finances, food prep, telephone, transportation. Needs Assist: medication admin. Review of Systems Review of Systems Constitutional: Reports: see HPI. Exam & Diagnostic Data Last 24 Hrs of Vital Signs/I&O Vital Signs Date Time Temp Pulse Resp B/P B/P Pulse O2 O2 Flow FiO2 Mean Ox Delivery Rate 04/08 2037 72 138/70 04/08 1849 97.5 72 18 142/64 98 Room Air Room Air 04/08 1752 97.8 65 16 145/64 97 Room Air 04/08 1445 98.6 60 18 132/68 98 Room Air Room Air 04/08 1257 Room Air 04/08 1228 97.3 60 20 104/60 98 Room Air Intake & Output 04/08 1600 04/08 0800 04/08 0000 Intake Total Output Total Balance Patient 200 lb Weight Weight Reported by Patient Measurement Method Assessment/Plan Assessment: Patient is a 88 yo M with a PMH of atrial fibrillation on Eliquis, bladder diverticulum, BPH, hypertension, hyperlipidemia, GERD, hiatal hernia, diverticulosis, CKD, BPH, hypothyroid,family history of colon cancer, umbilical hernia, diastases of the rectus sheath, gastric polyp, macrocytic anemia.anxiety , depression has come to [facility] with complaints of bleeding per rectum. Vitals on admission: Temperature 97.3, pulse rate 60, respiratory rate 20, blood pressure 104/60 saturating 98 at room air. Labs on admission: WBC 11.6, hemoglobin 9.6(last hemoglobin in February 2018 was 10.1], hematocrit 29.1, platelet 256, INR 1.63, sodium 142 potassium 4.3, BUN 24, creatinine 1.8 [ baseline creatinine 1.3-1.5], troponin 0.02 calcium 9 EKG: HR64, LBBB, first degree AV block, Left axis deviation. Assessment and Plan: Problems: #Bleeding per rectum: GI consult has been placed and pt is npo. CBC for 10Pm is ordered to check H&H. #Hx a.fib on eliquis: he did not take his medications today. We requested Cardio consult (Dr. Marshall) who will give recs for Eliquis. We will repeat echo to see Aortic stenosis and EF(last was 65%). #Consent for blood transfusion: I, Agatha Alcantara MD informed the patient of the possible need of transfusion of blood/blood products.I explained the benefits/ risks associated. Pt fully understood and and signed informed consent at 7:50 PM. #BPH: I placed a courtesy call to Dr. Casas (Pt's urologist) about his admission. He informed me that the pt has a past Hx of bladder diverticulum, BPH and asso hematuria from enlarged prostate. He recommended to please make sure that the patient continues Tamsulosin and Finasteride. #Hx hiatal hernia: Asymptomatic at this time #Admit to Tele #Diet: npo #Code status: DNR/DNI #DVT Px: ALPs As Ranked By This Provider Problem List: 1. BPH (benign prostatic hyperplasia) 2. Bleeding per rectum Core Measures/Misc (06/24) Acute Coronary Syndrome ACS Diagnosis: No Congestive Heart Failure Congestive Heart Failure Diagnosis No Cerebrovascular Accident CVA/TIA Diagnosis: No Sepsis (View protocol) If YES complete Sepsis Event Note If YES complete Sepsis [facility]: General Information and HPI MD Statement: I have seen and personally examined GILES RIVERO and documented this H&P. The patient is a 88 year old M who presented with a patient stated chief complaint of [bright red bleeding per rectum]. Source of Information: patient, old records Exam Limitations: no limitations Core Measures/Misc (9/17) Acute Coronary Syndrome ACS Diagnosis: No Congestive Heart Failure Congestive Heart Failure Diagnosis No Cerebrovascular Accident CVA/TIA Diagnosis: No VTE (View Protocol) VTE Risk Factors Age>40 No Mechanical VTE Prophylaxis d/t Medical Contraindication No VTE Pharm Prophylaxis d/t Medical Contraindication Sepsis (View protocol) Sepsis Present: No If YES complete Sepsis Event Note If YES complete Sepsis Event Note Resident Review Statement Resident Statement: discussed with equine internship, agreed with equine internship, discussed with family, reviewed EMR data (avail) Other Findings: 88-year-old gentleman with past medical history of atrial fibrillation on Eliquis, bladder diverticulum, BPH, hypertension, hyperlipidemia, GERD, hiatal hernia, diverticulosis, CKD, BPH, hypothyroid,family history of colon cancer, umbilical hernia, diastases of the rectus sheath, gastric polyp, macrocytic anemia.anxiety, depression has come to [facility] with complaints of bleeding per rectum. Patient was in usual state of health until 2 days ago, following which patient had 2 episodes of watery diarrhea not mixed with blood. Patient did not have any abdominal pain, nausea, vomiting, dizziness during the same time. Today morning patient was about to go to his primary care physician for preop evaluation [patient was planned for TURP for his BPH by Dr. Casas], mentioned about his bright bleeding per rectum to his primary care physician and hence he was referred to [facility]. Patient denies chest pain, chest pressure, headache, palpitations, abdominal pain. He denies similar episodes in the past. His networking engineer is Dr. Horton at [place]. Patient follows with Dr. Casas for his BPH. At baseline patient does not use cane or walker. He lives by himself. Admission vitals Temperature 97.3, pulse rate 60, respiratory rate 20, blood pressure 104/60 saturating 98 at room air. Admission labs WBC 11.6, hemoglobin 9.6(last hemoglobin in February 2018 was 10.1], hematocrit 29.1, platelet 256, INR 1.63, sodium 142 potassium 4.3, BUN 24, creatinine 1.8 [ baseline creatinine 1.3-1.5], troponin 0.02 calcium 9 04/20/17: CT ABDOMEN AND PELVIS WITHOUT CONTRAST- - Stable appearing very large hiatal hernia with the entire stomach and the gastroduodenal junction located within the thoracic cavity. Echocardiogram-April 2017 Ejection fraction more than 65% with no regional wall motion abnormality, moderate aortic stenosis, right ventricular systolic pressure more than 45 Patient home medication Problem list 1. GI bleed 2. History of A. fib and moderate aortic stenosis 3. Large hiatal hernia 4. CKD stage III * GI bleed-patient is being admitted in telemetry for bright red bleeding per rectum. The patient gives similar history in the past, but according to him this episode he had more than usual bleeding per rectum. We will keep him n.p.o. and get gastroenterology consult. We will hold his Eliquis. His last colonoscopy done in 2016 showed polyps which was benign. He was suggested to do repeat colonoscopy in 2019. * History of atrial fibrillation currently in sinus rhythm. We will hold his Eliquis and consult with cardiology Dr. MARSHALL tomorrow. We will get a repeat echo to look at this aortic valve. * Large hiatal hernia-at present patient does not have any reflux symptoms. * CKD stage III-patient's creatinine today is 1.8. We will hold his Lasix today and repeat tomorrow. * We will continue his Lexapro, tamsulosin, finasteride, atorvastatin. * CODE STATUS-DNR/DNI * Diet-n.p.o. * DVT prophylaxis-Lindy Triana MD 04/08/18 1508: Core Measures/Misc (06/24) Sepsis (View protocol) If YES complete Sepsis Event Note If YES complete Sepsis Event Note Attending MD Review Statement Attending Statement Attending MD Statement: examined this patient, discuss w/resident/PA/TUMBLER DYEING MACHINE OPERATOR, agreed w/resident/PA/TUMBLER DYEING MACHINE OPERATOR, reviewed EMR data (avail), reviewed images Attending Assessment/Plan: 88 year old male with PMH Afib on Eliquis, CAD, hiatal hernia and previous pancreatic IPMN, moderate aortic stenosis and BPH among his problems. He is here with rectal bleeding. Differential at this point includes diverticular bleeding versus colonic AVMs associated with aortic stenosis versus something more ominous. At this point he is hemodynamically stable and his crit is stable. We'll hold his Eliquis, repeat his CBC tonight and tomorrow morning and get a GI consult later today. If he continues to bleed will call GI more urgently. We'll repeat his echocardiogram as this echo was done 1 year ago to see the valve. We'll call cardiology as a worsening valve may suggest colonic AVMs. We'll continue his cardiac medications for now, put him on Alps for DVT prophylaxis, let his urologist Dr. Casas no he is here as he was scheduled to have a TURP fairly soon and will follow closely. Sepsis (View protocol) If YES complete Sepsis Event Note If YES complete Sepsis Event Note Attending MD Review Statement Attending Statement Attending MD Statement: examined this patient, discuss w/resident/PA/TUMBLER DYEING MACHINE OPERATOR, agreed w/resident/PA/TUMBLER DYEING MACHINE OPERATOR, reviewed EMR data (avail), reviewed images Attending Assessment/Plan: 88 year old male with PMH Afib on Eliquis, CAD, hiatal hernia and previous pancreatic IPMN, moderate aortic stenosis and BPH among his problems. He is here with rectal bleeding.
--- NOTE | 2018-04-08 15:00 | Admission Certification ---
Admission Certification Certification Statement - As attending physician, I certify that at the time of - admission, based on clinical presentation, severity of - symptoms, need for further diagnostic testing and - therapeutic interventions, and risk of adverse outcomes - without in-hospital treatment, in my clinical assessment, - this patient requires an acute hospital stay for a minimum - of two nights or longer. I have also considered psychsocial - factors such as support system, advanced age, financial - issues, cognitive issues, and failed out-patient treatments, - past re-admission history, safety of patient, and lack of - compliance as applicable. Specific rationale supporting this admission is: Rectal bleeding in pt with and on eliquis
--- NOTE | 2018-04-08 17:12 | RADIOLOGY REPORT ---
EXAMINATION: XR PORTABLE CHEST CLINICAL INFORMATION: Shortness of breath. COMPARISON: Chest x-ray dated 04/20/2017. TECHNIQUE: Portable AP semierect view of the chest was obtained. FINDINGS: The cardiomediastinal silhouette is borderline normal in size. Large retrocardiac hiatal hernia is again seen. Lungs bilaterally are symmetrically expanded and again demonstrate minimal bibasilar atelectatic changes. No focal consolidation, effusion or pneumothorax is seen. Bony structures are unremarkable. IMPRESSION: 1. Minimal bibasilar subsegmental atelectasis. No focal pneumonia. 2. Large retrocardiac hiatal hernia.
[2018-04-08 18:49] VITALS: BP 142/64
[2018-04-08 21:46] LABS: ABSOLUTE BASOPHIL COUNT 0 /CUMM (0.0-0.2); ABSOLUTE EOSINOPHIL COUNT 0.7 /CUMM (0.0-0.7); ABSOLUTE GRANULOCYTE CT 7.7 /CUMM (1.4-6.5); ABSOLUTE LYMPH COUNT 2.4 /CUMM (1.2-3.4); ABSOLUTE MONOCYTE COUNT 0.9 /CUMM (0.10-0.60); BASOPHIL % 0.3 % (0.0-2.0); EOSINOPHIL % 5.8 % (0-5); GRANULOCYTE % 65.8 % (42.2-75.2); HEMATOCRIT 28.6 % (42-52); MEAN CORPUSCULAR HGB 28.9 PG (27.0-31.0); MEAN CORPUSCULAR HGB CONC 32.6 G/DL (33.0-37.0); MEAN CORPUSCULAR VOLUME 88.5 FL (80.0-94.0); MEAN PLATELET VOLUME 9.1 FL (7.4-10.4); PLATELET COUNT 245 /CUMM (130-400); RBC DISTRIBUTION WIDTH 16.7 % (11.5-14.5); RED BLOOD CELL CT 3.23 /CUMM (4.70-6.10); WHITE BLOOD CELL COUNT 11.7 /CUMM (4.8-10.8)
[2018-04-08 22:30] VITALS: BP 140/68
--- NOTE | 2018-04-09 06:35 | PN- Housestaff ---
Agatha Alcantara 04/09/18 0634: Subjective Follow-up For: Rectal bleed Tele-Events Since Last Visit: SR. First degree AV blcok. 58-73. Bigeminy and PVS(10-15) Subjective: Patient slept well last night. he woke up twice to pass urine. No events/no bm overnight. no complaints. pt is npo. took few sips of water this morning to take his synthyroid. Review of Systems Constitutional: Reports: no symptoms. EENTM: Reports: see HPI. Cardiovascular: Reports: see HPI. Respiratory: Reports: see HPI. Gastrointestinal: Reports: see HPI. Genitourinary: Reports: see HPI. Objective Last 24 Hrs of Vital Signs/I&O Vital Signs Date Time Temp Pulse Resp B/P B/P Pulse O2 O2 Flow FiO2 Mean Ox Delivery Rate 04/09 1503 97.6 69 18 120/42 95 / 0945 76 116/60 94 Room Air 04/09 0703 98.2 76 18 108/52 95 Room Air 04/08 2230 98.3 49 18 140/68 96 / 2037 72 138/70 / 1849 97.5 72 18 142/64 98 Room Air Room Air 04/08 1752 97.8 65 16 145/64 97 Room Air Intake & Output 04/09 1600 04/09 0800 04/09 0000 Intake Total 600 120 Output Total Balance 600 120 Intake, Oral 600 120 Patient 192 lb Weight Physical Exam General Appearance: Alert, Oriented X3, Cooperative, No Acute Distress Skin: pt has had keratotic lesions all over his back for a v long time Skin Temp/Moisture Exam: Warm/Dry Sepsis Skin Exam (color): Normal for Ethnicity HEENT: Atraumatic, PERRLA, Mucous Membr. moist/pink Neck: Supple, No JVD Cardiovascular: Regular Rate, systolic murmur loudest at the aortic area Lungs: Clear to Auscultation, Normal Air Movement Abdomen: Normal Bowel Sounds, Soft, No Tenderness, No Hepatospenomegaly, No Masses Neurological: Normal Gait, Normal Speech, Strength at 5/5 X4 Ext Extremities: No Clubbing, No Cyanosis, No Edema, Normal Pulses Vascular: Normal Pulses Assessment/Plan Assessment: Patient is an 88-year-old man with a past medical history of hiatal hernia, coronary artery disease, benign prostatic hyperplasia, depression, hypothyroidism, A. fib on Eliquis, chronic back pain, renal insufficiency and macrocytic anemia. Past GI problems include I PMN of the pancreas, large hiatal hernia and reflux, diverticulosis coli, family history of colon cancer, diastases of rectus sheath, unlikely hernia, gastric polyps, hemorrhoids, and bleeding per rectum. Vitals today: Afebrile, pulse 49-76, respiratory rate 18, blood pressure 108/52, satting 95% on room air. Assessment and plan: Problems: #rectal bleed: -Pt has not had any episodes of rectal bleed or diarrhea overnight. We started him on regular diet. -His Hb was 9.6 on admission and later to 9.3 to 8.8. GI consult will come to see him today. -We will F/U with the CBC today at 6PM and tomorrow. If no intervention is needed we will discharge the patient tomorrow and patient can follow up as an outpatient with GI. -Patient had a bowel movement this afternoon which was not associated with any bright red blood. Stool was brown in color and tested guaiac positive. -GI recommended that patient follow-up as an outpatient. The source of bleed is most probably hemorrhoidal. #Hard stool: Per GI recs, I talked with the patient about giving Metamucil the stool softener. Pt refused saying that he does not want to take the risk of having diarrhea again. #Pertinent labs: His hemoglobin this morning was 8.8. His PT was 17.9 & INR 1.63. BUN of 21, serum creatinine 1.6. #Afib on eliquis: We have held his Eliquis tomorrow. He will take the next dose on April 11. # Aortic stenosis: 2016 his echo showed moderate . Repeat echo today showed trace to mild aortic insufficiency. Cardiology recommended the patient to follow as an outpatient as he is asymptomatic. #CKD stage III: Patient's creatinine today was 1.6. ECHO RESULTS (04/09/18) "Normal LV chamber size with mild to moderate concentric LVH. The estimated LVEF is 50%. There is septal wall dyssynchrony. There is mild mitral regurgitation. Thickened and calcified trileaflet aortic valve with reduced leaflet opening. The mean transvalvular gradient is 40 mmHg. The peak transvalvular gradient is 67 mmHg. The calculated aortic valve area is 1.1. There is trace to mild aortic insufficiency. The estimated PA systolic pressure is 42 mmHg. " #Diet: regular diet #DNR/DNI #DVT prophylaxis: Alps Problem List: 1. Rectal bleeding 2. A-fib Pain Ratin Pain Location: None Pain Goal: Remain pain free Pain Plan: Remain pain-free Tomorrow's Labs & Rationales: CBC Lindy Joe MD 04/09/18 1102: Attending MD Review Statement Attending Statement Attending MD Statement: examined this patient, discuss w/resident/PA/SOFTBALL UMPIRE, agreed w/resident/PA/SOFTBALL UMPIRE, reviewed EMR data (avail), discussed with nursing, discussed with case mgmt, reviewed images Attending Assessment/Plan: Patient hasn't had any more episodes of bleeding since he's come in. He has been nothing by mouth and we are starting him on a diet today. This is an 88-year-old gentleman with a past medical history of A. fib on Eliquis, moderate aortic stenosis, previous pancreatic IPMN, hiatal hernia and BPH. He was scheduled for a TURP by Dr. Casas but when he went to see the PCP for a preop eval he gave the history of a day of rectal bleeding. Right now we are monitoring his hemoglobin, its slowly drifting down from 9.6 on admission to 8.8 this morning and will check another one later today. We have the Eliquis on hold. GI has been called and they will formally see him. We are going to feed him and if no active bleeding than likely no acute inpatient intervention and discharge in a.m. with outpatient follow-up. Will also make sure cardiology sees him to repeat his echocardiogram given the moderate was one year ago and if the valve has worsened a lot and there is a chance of colonic AVMs with .
[2018-04-09 07:03] VITALS: BP 108/52
[2018-04-09 08:30] LABS: ABSOLUTE BASOPHIL COUNT 0 /CUMM (0.0-0.2); ABSOLUTE EOSINOPHIL COUNT 0.5 /CUMM (0.0-0.7); ABSOLUTE GRANULOCYTE CT 6.8 /CUMM (1.4-6.5); ABSOLUTE LYMPH COUNT 1.3 /CUMM (1.2-3.4); ABSOLUTE MONOCYTE COUNT 0.7 /CUMM (0.10-0.60); BASOPHIL % 0.5 % (0.0-2.0); EOSINOPHIL % 5.2 % (0-5); GRANULOCYTE % 72.8 % (42.2-75.2); MEAN CORPUSCULAR HGB 29.1 PG (27.0-31.0); MEAN CORPUSCULAR HGB CONC 32.7 G/DL (33.0-37.0); MEAN CORPUSCULAR VOLUME 88.9 FL (80.0-94.0); MEAN PLATELET VOLUME 9.6 FL (7.4-10.4); PLATELET COUNT 206 /CUMM (130-400); RBC DISTRIBUTION WIDTH 16.8 % (11.5-14.5); RED BLOOD CELL CT 3.04 /CUMM (4.70-6.10); WHITE BLOOD CELL COUNT 9.3 /CUMM (4.8-10.8)
[2018-04-09 09:45] VITALS: BP 116/60
--- NOTE | 2018-04-09 10:26 | Discharge Summary ---
Visit Information Visit Dates Admission Date: 04/08/18 Discharge Date: 04/11/18 Hospital Course Course Attending Physician: Lidia Rico MD Primary Care Physician: Sofia WORLEY,Rob Enriquez Hospital Course: Patient is an 88 years old male with a past medical history of coronary artery disease, BPH, depression, hypothyroidism, A. fib on Eliquis, chronic back pain, renal insufficiency, and macrocytic anemia. His past GI problems include intraductal papillary mucinous neoplasm, large hiatal hernia, hiatal reflux, diverticulosis coli, family history of colon cancer, diastases of rectus sheath, likely hernia, history of gastric polyps and is on 16, hemorrhoids, and bleeding per rectum. His presenting complaint was bright red lower GI bleed. Vitals on admission: temp 97.3, pulse 650, rr 20, bp 102/60, 88% on RA. EKG on adm:NSR, LBBB,1st degree AV block: unchanged from previous ekg Labs on adm: wbcs 11.6, hgb 9.6, hct 29.1, plt 256, Na 142, K 4.3, Cl 103, bicarb 24, BUN 24, Cr 1.8. Telemetry tracings were personally reviewed and shows sinus rhythm with first- degree AV block Echo () Normal LV chamber size with mild to moderate concentric LVH. The estimated LVEF is 50%. There is septal wall dyssynchrony. There is mild mitral regurgitation. Thickened and calcified trileaflet aortic valve with reduced leaflet opening. The mean transvalvular gradient is 40 mmHg. The peak transvalvular gradient is 67 mmHg. The calculated aortic valve area is 1.1. There is trace to mild aortic insufficiency. The estimated PA systolic pressure is 42 mmHg. Problems: 1. Lower GI bleed felt possibly hemorrhoidal by GI 2. Paroxysmal atrial fibrillation maintained on Eliquis 3. Known aortic stenosis 4. Chronic renal insufficiency 5. Nonobstructive CAD by history Hospital course: -We held home Eliquis as we did not want to risk re-GI bleed. We restarted it when pt did not report any further episodes of bleed. He did not have any re- bleed after resuming his eliquis.We d/c him on 2.5mg eliquis po tiwce daily -Pt was hemodynamically stable in his hospital. He was a pleasant man and did not have any acut events nor complaints. Did not report SOB, CP, Palpitations, abd pain, diarrhea, fever chills -We followed his Hb by twice daily CBC . His hgb remained grossly stable. 9.6--- -8.8 -No new events were seen on tele monitoring -BPH: Tamsulosin and finasteride. Hx hiatal hernia: Asymptomatic at this time -CKD stage III: Patient's creatinine was 1.8----1.6 -f/u with cardiology within 1 week of discharge. Echocardiogram as above shows aortic stenosis with a mean gradient of 40 mmHg; no clear indication for urgent valve replacement in this hospital stay -f/u with gastroenterology as an outpt one week after d/c -f/u with pcp one week after d/c -Diet: Regular diet -Code status: DNR/DNI -DVT Px: ALPs Allergies: Coded Allergies: rabeprazole (PER PT DOESNT REMEMBER 02/08/18) rosuvastatin (NERVOUS 02/08/18) simvastatin (NERVOUS 02/08/18) oxycodone (Intermediate, ITCHING 02/08/18) Disposition Summary Disposition Principal Diagnosis: Gastrointestinal Bleeding Additional Diagnosis: PMHx hiatal hernia, CAD, BPH, depression, hypothyroidism, afib on eliquis, chronic LBP, renal insuffi, microcytic anemia, IPMN, diverticulosis coli, umbilical hernia, colonic polyps Discharge Disposition: home health services Discharge Instructions General Discharge Information Code Status: Full Code Patient's Diet: regular diet Patient's Activity: self limited Follow-Up Instructions/Appts: -F/u w/ pcp -F/u w/ cardiology -F/u w/ gastroenterology Medications at Discharge Discharge Medications: Continue taking these medications: Calcium Carb & Citrate/Vit D3 (Calcium + D3 ER Tablet) 600 MG CALCIUM-500 UNIT TABLET.ER 1 Tablet ORAL Every night Qty = 30 Instructions: PLEASE TAKE ONE TAB AT LEAST 4 HOURS AFTER LEVOTHYROXIN Comments: NOT GIVEN Cyanocobalamin (Vitamin B-12) 1,000 MCG TABLET 1 Tablet ORAL DAILY Comments: NOT GIVEN Multivitamin (Multiple Vitamins) 1 EACH TABLET 1 Tablet ORAL Every night Comments: NOT GIVEN Atorvastatin Calcium (Lipitor) 40 MG TABLET 0.5 Tablet ORAL Every night Comments: Last Taken: 04/10/18 Time: 8:45 PM Omeprazole (Omeprazole) 20 MG CAPSULE.DR 1 Capsule ORAL TWICE DAILY Comments: Last Taken: 04/11/18 Time: 9:15 AM IV PROTONIX GIVEN SUBSTITUTE Ferrous Sulfate (Ferosul) 325 MG (65 MG IRON) TABLET 1 Tablet ORAL DAILY Qty = 30 Instructions: PLEASE TAKE 1 TAB AT LEAST 4 HOURS AFTER LEVOTHYROXINE Comments: NOT GIVEN Furosemide (Furosemide) 20 MG TABLET 1 Tablet ORAL DAILY Comments: NOT GIVEN Apixaban (Eliquis) 2.5 MG TABLET 1 Tablet ORAL TWICE DAILY Instructions: Start taking from 04/11/18 Comments: Last Taken: 04/11/18 Time: 9:15 AM Finasteride (Finasteride) 5 MG TABLET 1 Tablet ORAL DAILY Comments: Last Taken: 04/11/18 Time: 9:15 AM Levothyroxine Sodium (Levothyroxine Sodium) 137 MCG TABLET 1 Tablet ORAL DAILY BEFORE BREAKFAST Qty = 30 Instructions: PLEASE TAKE 1 TAB BEFORE BREAKFAST ON AN EMPTY STOMACH Comments: Last Taken: 04/11/18 Time: 6:20 AM Tamsulosin HCl (Tamsulosin HCl) 0.4 MG CAP.ER.24H 1 Capsule ORAL Every night Qty = 30 Comments: Last Taken: 04/10/18 Time: 8:45 PM Escitalopram Oxalate (Lexapro) 20 MG TABLET 1 Tablet ORAL DAILY Comments: Last Taken: 04/11/18 Time: 9:15 AM Copies To: Alpesh WORLEY,Burt Mckeon; Sofia WORLEY,Rob Enriquez; Rolando WORLEY,Rasheed Lema MD Review Statement Documenting Attending: Lidia Rico MD Other Findings: Medically stable to be discharged home.
--- NOTE | 2018-04-09 10:39 | Patient Discharge Instructions ---
Discharge Instructions General Discharge Information You were seen/treated for: rectal bleed Watch for these problems: recurrent bright red blood per rectum, brown urine/bright red blood in urine/ blood in vomit. If yes to any of these, please visit your nearest Emergency department Special Instructions: please follow up with your primary care physician one week after discharge please follow up with your cloth washer operator one week after discharge please follow up with your high school agriculture teacher one week after discharge. Your appointment is at 4:45 on Monday 04/16. PLEASE DO CBC IN 1 WEEK AND F/U WITH PCP Diet Continue normal diet: Yes Activity Activity Self Limited: Yes Acute Coronary Syndrome Inclusion Criteria At DC or during hospital stay patient has or had the following: ACS DIAGNOSIS No Discharge Core Measures Meds if any: Prescribed or Continued at Discharge Meds if any: NOT Prescribed or Continued at Discharge Congestive Heart Failure Inclusion Criteria At DC or during hospital stay patient has or had the following: CHF DIAGNOSIS No Discharge Core Measures Meds if any: Prescribed or Continued at Discharge Meds if any: NOT Prescribed or Continued at Discharge Cerebrovascular accident Inclusion Criteria At DC or during hospital stay patient has or had the following: CVA/TIA Diagnosis No Discharge Core Measures Meds if any: Prescribed or Continued at Discharge Meds if any: NOT Prescribed or Continued at Discharge Venous thromboembolism Inclusion Criteria VTE Diagnosis No VTE Type NONE VTE Confirmed by (Test) NONE Discharge Core Measures - Per Current guidelines, there needs to be overlap - treatment for the first 5 days of Warfarin therapy. - If discharged on Warfarin prior to 5 days of - overlap therapy, the patient will need to be - assessed for post discharge needs including - *Post discharge parental anticoagulation - *Warfarin and/or parental anticoagulation education - *Follow up date to check INR post discharge At least 5 days overlap therapy as Inpatient No Meds if any: Prescribed or Continued at Discharge Note: Overlap Therapy is Warfarin and Anticoagulant Meds if any: NOT Prescribed or Continued at Discharge
--- NOTE | 2018-04-09 10:52 | Cons- Cardiology ---
General Information and HPI Consulting Request Date of Consult: 04/09/18 Requested By: Lindy Joe MD Reason for Consult: Atrial fibrillation, GI bleed, aortic stenosis Source of Information: patient, old records Exam Limitations: no limitations History of Present Illness: The patient is an 88-year-old gentleman with a past medical history of atrial fibrillation (anticoagulated with Eliquis), moderate aortic stenosis (valve area 1.4, mean gradient 40 1 year ago), chronic renal insufficiency, coronary artery disease (mild by cardiac catheterization in 2009), diverticulosis and a hiatal hernia. He presents to our hospital with bright red blood per rectum. The patient states he has been otherwise tolerant of and compliant with his medication regimen without prior history of bleed. He is otherwise asymptomatic from a cardiovascular standpoint, and describes performance of greater than 6 metastases of physical activity on a regular basis without difficulty. On the morning of presentation, he noticed bright red blood per rectum while showering. This was following a bowel movement. He states noting no episodes of bleeding immediately following the bowel movement and while wiping. The patient otherwise denies melanotic stools over the past several days. Allergies/Medications Allergies: Coded Allergies: rabeprazole (PER PT DOESNT REMEMBER 02/08/18) rosuvastatin (NERVOUS 02/08/18) simvastatin (NERVOUS 02/08/18) oxycodone (Intermediate, ITCHING 02/08/18) Home Med List: Apixaban (Eliquis) 2.5 MG TABLET 1 TAB PO BID BLOOD THINNER (Reported) Atorvastatin Calcium (Lipitor) 40 MG TABLET 0.5 TAB PO QPM CHOLESTEROL ( Reported) Calcium Carb & Citrate/Vit D3 (Calcium + D3 ER Tablet) 600 MG CALCIUM-500 UNIT TABLET.ER 1 TAB PO QPM SUPPLEMENT (Reported) PLEASE TAKE ONE TAB AT LEAST 4 HOURS AFTER LEVOTHYROXIN Cyanocobalamin (Vitamin B-12) 1,000 MCG TABLET 1 TAB PO DAILY VITAMIN SUPPORT (Reported) Escitalopram Oxalate (Lexapro) 20 MG TABLET 1 TAB PO DAILY MENTAL HEALTH ( Reported) Ferrous Sulfate (Ferosul) 325 MG (65 MG IRON) TABLET 1 TAB PO DAILY SUPPLEMENT (Reported) PLEASE TAKE 1 TAB AT LEAST 4 HOURS AFTER LEVOTHYROXINE Finasteride 5 MG TABLET 1 TAB PO DAILY PROSTATE (Reported) Furosemide 20 MG TABLET 1 TAB PO DAILY WATER RETENTION (Reported) Levothyroxine Sodium 137 MCG TABLET 1 TAB PO DAILY AC HYPOTHYROIDISM PLEASE TAKE 1 TAB BEFORE BREAKFAST ON AN EMPTY STOMACH Multivitamin (Multiple Vitamins) 1 EACH TABLET 1 TAB PO QPM SUPPLEMENT ( Reported) Omeprazole 20 MG CAPSULE.DR 1 CAP PO BID GI (Reported) Tamsulosin HCl 0.4 MG CAP.ER.24H 1 CAP PO QPM PROSTATE (Reported) Current Medications: Current Medications Sig/Lamar Start time Last Medication Dose Route Stop Time Status Admin Atorvastatin Calcium 20 MG QPM 04/08 2100 AC 04/08 PO 2036 Escitalopram Oxalate 20 MG DAILY 04/09 900 AC 04/09 PO 09 Finasteride 5 MG DAILY 04/09 900 AC 04/09 PO 0942 Furosemide 20 MG DAILY 04/09 900 CAN PO Levothyroxine Sodium 0.137 MG DAILY AC 04/09 700 AC 04/09 PO 0521 Pantoprazole Sodium 0 .STK-MED ONE 04/08 1742 DC IV Pantoprazole Sodium 40 MG DAILY 04/08 1645 AC 04/09 IV 0941 Tamsulosin HCl 0.4 MG QPM 04/08 2100 AC 04/08 PO 2036 Review of Systems Review of Systems: The review of systems is negative for chest pains, palpitations nor lightheadedness. The remainder of the 14 point review of systems is noncontributory with the exception of above. Past History Travel History Traveled to [place] past 21 day No Medical History Blood Transfusion Hx: Yes Neurological: NONE EENT: NONE Cardiovascular: AFIB (PAF), hypertension, hyperlipidemia, CARDIAC BLOCKAGES Respiratory: NONE Gastrointestinal: GERD, hiatal hernia (large), umbilical hernia, diverticulosis coli colon adenoma pancreatic cyst- IPMN Hepatic: NONE Renal: chronic kidney disease, PROSTATITIS/BPH Hx UTI bladder diverticulum Musculoskeletal: chronic back pain, degen joint disease Psychiatric: anxiety (mild), depression Endocrine: HYPOTHYROID osteopenia (post HALL) Blood Disorders: anemia (macrocytic) Cancer(s): 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 FATHER, , Age 37; Cause: Accident at workplace. BROTHER, ; Cause: Arteriosclerotic heart disease (ASHD). BROTHER, ; Cause: Arteriosclerotic heart disease (ASHD). BROTHER, ; Cause: Arteriosclerotic heart disease (ASHD). SISTER, ; Cause: CVA (cerebral vascular accident). MOTHER (anemia). , Age 73; Cause: CRF (chronic renal failure). Relation not specified for: colon cancer FH: myocardial infarction FH: pancreatic cancer FHx: stroke Psychosocial History Where Do You Live? Home (sons visits him & brings food) Who Do You Live With? self Services at Home: Home Health Aide, Nursing Primary Language: Ivorian Smoking Status: Former Smoker ETOH Use: denies use Illicit Drug Use: denies illicit drug use Living Will? yes Power of Pooling Operator/HCP? yes Name of POA/HCP: Pt's 2 Nick barragan & [phone] Functional Ability ADLs Independent: dressing, eating, toileting, bathing. Ambulation: independent IADLs Independent: shopping, housework, finances, food prep, telephone, transportation. Needs Assist: medication admin. Exam & Diagnostic Data Vital Signs and I&O Vital Signs Date Time Temp Pulse Resp B/P B/P Pulse O2 O2 Flow FiO2 Mean Ox Delivery Rate 04/09 0945 76 116/60 94 Room Air 04/09 0703 98.2 76 18 108/52 95 Room Air 04/08 2230 98.3 49 18 140/68 96 / 2037 72 138/70 07/02 1849 97.5 72 18 142/64 98 Room Air Room Air 04/08 1752 97.8 65 16 145/64 97 Room Air 04/08 1445 98.6 60 18 132/68 98 Room Air Room Air 04/08 1257 Room Air 04/08 1228 97.3 60 20 104/60 98 Room Air Intake & Output 04/09 1600 04/09 0800 04/09 0000 04/08 1600 04/08 0800 04/08 0000 Intake Total 120 Output Total Balance 120 Intake, Oral 120 Patient 192 lb 200 lb Weight Weight Reported by Patient Measurement Method Physical Exam: General: Nontoxic, no apparent distress. HEENT: Sclera and conjunctiva within normal limits, without xanthelasmas. Neck: Carotids 2+ without bruits. Respiratory: Clear to auscultation, air movement is good, without accessory respiratory muscle use. Heart: Regular rate and rhythm, 2 out of 6 systolic crescendo decrescendo murmur heard best at the right sternal border, without JVD. Abdomen: Soft, nontender, no masses, normoactive bowel sounds. Extremities: Without clubbing, cyanosis, without edema. Neuro: Nonfocal exam, strength, 5 out of 5 Skin: Within normal limits without lesions. Psych: Mood and affect: Normal Labs/Liam Results: Laboratory Tests 04/09 04/08 0615 2050 Chemistry Sodium (137 - 145 mmol/L) 140 Potassium (3.5 - 5.1 mmol/L) 4.0 Chloride (98 - 107 mmol/L) 106 Carbon Dioxide (22 - 30 mmol/L) 25 Anion Gap (5 - 16) 10 BUN (9 - 20 mg/dL) 21 H Creatinine (0.7 - 1.2 mg/dL) 1.6 H Estimated GFR (>60 ml/min) 41 L BUN/Creatinine Ratio (7 - 25 %) 13.1 Hematology CBC w Diff NO MAN DIFF REQ NO MAN DIFF REQ WBC (4.8 - 10.8 /CUMM) 9.3 11.7 H RBC (4.70 - 6.10 /CUMM) 3.04 L 3.23 L Hgb (14.0 - 18.0 G/DL) 8.8 L 9.3 L Hct (42 - 52 %) 27.0 L 28.6 L MCV (80.0 - 94.0 FL) 88.9 88.5 MCH (27.0 - 31.0 PG) 29.1 28.9 MCHC (33.0 - 37.0 G/DL) 32.7 L 32.6 L RDW (11.5 - 14.5 %) 16.8 H 16.7 H Plt Count (130 - 400 /CUMM) 206 245 MPV (7.4 - 10.4 FL) 9.6 9.1 Gran % (42.2 - 75.2 %) 72.8 65.8 Lymphocytes % (20.5 - 51.1 %) 14.3 L 20.4 L Monocytes % (1.7 - 9.3 %) 7.2 7.7 Eosinophils % (0 - 5 %) 5.2 H 5.8 H Basophils % (0.0 - 2.0 %) 0.5 0.3 Absolute Granulocytes (1.4 - 6.5 /CUMM) 6.8 H 7.7 H Absolute Lymphocytes (1.2 - 3.4 /CUMM) 1.3 2.4 Absolute Monocytes (0.10 - 0.60 /CUMM) 0.7 H 0.9 H Absolute Eosinophils (0.0 - 0.7 /CUMM) 0.5 0.7 Absolute Basophils (0.0 - 0.2 /CUMM) 0 0 07/02 1255 Chemistry Sodium (137 - 145 mmol/L) 142 Potassium (3.5 - 5.1 mmol/L) 4.3 Chloride (98 - 107 mmol/L) 104 Carbon Dioxide (22 - 30 mmol/L) 24 Anion Gap (5 - 16) 13 BUN (9 - 20 mg/dL) 24 H Creatinine (0.7 - 1.2 mg/dL) 1.8 H Estimated GFR (>60 ml/min) 36 L BUN/Creatinine Ratio (7 - 25 %) 13.3 Glucose (65 - 99 mg/dL) 116 H Calcium (8.4 - 10.2 mg/dL) 9.0 Troponin I (<0.11 ng/ml) 0.02 Coagulation PT (9.4 - 12.5 SEC) 17.9 H INR (0.90 - 1.17) 1.63 H APTT (25 - 37 SEC) 34 Hematology CBC w Diff NO MAN DIFF REQ WBC (4.8 - 10.8 /CUMM) 11.6 H RBC (4.70 - 6.10 /CUMM) 3.27 L Hgb (14.0 - 18.0 G/DL) 9.6 L Hct (42 - 52 %) 29.1 L MCV (80.0 - 94.0 FL) 88.9 MCH (27.0 - 31.0 PG) 29.2 MCHC (33.0 - 37.0 G/DL) 32.9 L RDW (11.5 - 14.5 %) 16.7 H Plt Count (130 - 400 /CUMM) 256 MPV (7.4 - 10.4 FL) 8.8 Gran % (42.2 - 75.2 %) 66.1 Lymphocytes % (20.5 - 51.1 %) 20.3 L Monocytes % (1.7 - 9.3 %) 9.0 Eosinophils % (0 - 5 %) 4.3 Basophils % (0.0 - 2.0 %) 0.3 Absolute Granulocytes (1.4 - 6.5 /CUMM) 7.7 H Absolute Lymphocytes (1.2 - 3.4 /CUMM) 2.4 Absolute Monocytes (0.10 - 0.60 /CUMM) 1.0 H Absolute Eosinophils (0.0 - 0.7 /CUMM) 0.5 Absolute Basophils (0.0 - 0.2 /CUMM) 0 Assessment/Plan Assessment/Plan 88-year-old gentleman with a past medical history of atrial fibrillation ( anticoagulated with Eliquis), moderate aortic stenosis (valve area 1.4, mean gradient 40 1 year ago), chronic renal insufficiency, coronary artery disease ( mild by cardiac catheterization in 2009), diverticulosis and a hiatal hernia. He presents to our hospital with bright red blood per rectum. GI bleed: The patient presents with bright red blood per rectum following a bowel movement and wiping. There has been no concurrent melanotic stools by description; however, a full GI workup will be required. We will hold his regimen of Eliquis until cleared for restart by GI. There is no indication for anticoagulation bridging nor would this be possible given the acute bleed. Atrial fibrillation: The patient has known atrial fibrillation and has been adequately anticoagulated with Eliquis. Given his age, weight and renal clearance, his recommended dose is 5 mg twice daily. If he is unable to resume anticoagulation secondary to GI bleed risk, consideration for the implantation of a watchman device will be given. Coronary artery disease: Stable, the patient is asymptomatic. In 2009 he underwent a cardiac catheterization which demonstrated non flow obstructing disease. We will continue his current regimen. He presumably has not been on beta blockers due to baseline bradycardia (40s on admission) as well as mild hypotension. This will be reconsidered based on hemodynamics. Aortic stenosis: The patient had moderate aortic stenosis with a calculated valve area of 1.4; however, a significant mean gradient 1 year ago. He is asymptomatic for aortic stenosis symptoms and therefore we will continue to treat conservatively and follow as an outpatient Thank you for allowing us to participate in the care of your patient. Please do not hesitate to contact us further with any questions. Sincerely, Brandin Chatman MD [facility] Consult Acknowledgment - Thank you for your consult request.
--- NOTE | 2018-04-09 11:44 | ECHOCARDIOGRAM REPORT ---
GILES RIVERO Age: 88 : 1930 Gender: M Exam Date: 04/09/2018 09:57 Exam Location: 1 [address] Ht (in): 69 Wt (lb): 200 BSA: 2.12 BP: 108 / 52 Ordering Physician: Maci Valladares MD Referring Physician: Maci Valladares MD Technologist: Ben Hernandez [facility] Room Number: 180-1 Indications: AFIB/FLUTTER Rhythm: Technical Quality: Good FINDINGS Left Ventricle Normal LV chamber size with mild to moderate concentric LVH. The estimated LVEF is 50%. There is septal wall dyssynchrony. Right Ventricle Grossly normal-appearing right ventricular structure and function. Right Atrium Normal-appearing right atrium Left Atrium Mildly dilated left atrial size Mitral Valve Mildly calcified mitral valvular leaflets and annulus. There is adequate leaflet opening. There is mild mitral regurgitation. Aortic Valve Thickened and calcified trileaflet aortic valve with reduced leaflet opening. The mean transvalvular gradient is 40 mmHg. The peak transvalvular gradient is 67 mmHg. The calculated aortic valve area is 1.1. There is trace to mild aortic insufficiency. Tricuspid Valve Grossly normal appearing tricuspid valvular leaflet structure and function. There is mild tricuspid regurgitation. The estimated PA systolic pressure is 42 mmHg. Pulmonic Valve Grossly normal-appearing pulmonic valvular leaflet structure and function. Pericardium Normal-appearing pericardium Great Vessels Normal great vessels CONCLUSIONS Normal LV chamber size with mild to moderate concentric LVH. The estimated LVEF is 50%. There is septal wall dyssynchrony. There is mild mitral regurgitation. Thickened and calcified trileaflet aortic valve with reduced leaflet opening. The mean transvalvular gradient is 40 mmHg. The peak transvalvular gradient is 67 mmHg. The calculated aortic valve area is 1.1. There is trace to mild aortic insufficiency. The estimated PA systolic pressure is 42 mmHg. Brandin Chatman M.D. (Electronically Signed) Final Date: 09 April 2018 11:44 MEASUREMENTS (Male / Female) Normal Values 2D ECHO LV Diastolic Diameter PLAX 3.9 cm 4.2 - 5.9 / 3.9 - 5.3 cm LV Systolic Diameter PLAX 2.0 cm 2.1 - 4.0 cm LV Fractional Shortening PLAX 48.7 % 25 - 46 % LV Ejection Fraction 2D Teich 80.7 % IVS Diastolic Thickness 1.5 cm LVPW Diastolic Thickness 1.4 cm LV Relative Wall Thickness 0.7 RV Internal Dim ED PLAX 2.3 cm 1.9 - 3.8 cm LVOT Diameter 2.5 cm Aortic Root Diameter 2.9 cm LA Systolic Diameter LX 3.0 cm 3.0 - 4.0 / 2.7 - 3.8 cm LA Volume 54.0 cm 18 - 58 / 22 - 52 cm Ascending Aorta Diameter 2.9 cm DOPPLER AV Peak Velocity 408.0 cm/s AV Peak Gradient 66.6 mmHg AV Mean Velocity 297.0 cm/s AV Mean Gradient 40.0 mmHg AV Velocity Time Integral 95.1 cm LVOT Peak Velocity 91.7 cm/s LVOT Peak Gradient 3.4 mmHg LVOT Mean Velocity 64.1 cm/s LVOT Mean Gradient 2.0 mmHg LVOT Velocity Time Integral 22.2 cm LVOT Stroke Volume 109.8 cm AV Area Cont Eq vti 1.2 cm AV Area Cont Eq pk 1.1 cm MV Peak Velocity 137.0 cm/s MV Peak Gradient 7.5 mmHg MV Mean Velocity 70.1 cm/s MV Mean Gradient 2.0 mmHg Mitral E Point Velocity 103.0 cm/s Mitral A Point Velocity 118.0 cm/s Mitral E to A Ratio 0.9 MV PHT Velocity 114.0 cm/s MV Deceleration Tyrrell 282.0 cm/s MV Pressure Half Time 121.3 ms MV Area PHT 1.8 cm MV Deceleration Time 275.0 ms TR Peak Velocity 311.0 cm/s TR Peak Gradient 38.7 mmHg Right Atrial Pressure 5.0 mmHg Pulmonary Artery Systolic Pressu 43.7 mmHg Right Ventricular Systolic Press 43.7 mmHg PV Peak Velocity 179.0 cm/s PV Peak Gradient 12.8 mmHg PV Mean Velocity 102.0 cm/s PV Mean Gradient 5.0 mmHg PV Velocity Time Integral 35.2 cm
[2018-04-09 15:03] VITALS: BP 120/42
--- NOTE | 2018-04-09 16:54 | Cons- Gastroenterology ---
General Information and HPI Consulting Request Date of Consult: 04/09/18 Requested By: Lindy Joe MD Reason for Consult: Hematochezia History of Present Illness: The patient has been constipated for several days. He usually has regular bowel movements. Yesterday, he noted blood on the toilet paper after defecating, and then was dripping blood, at first in the toilet, and then on the way to the shower. This was noticed by his son, and he was brought to the emergency room. Since that time he has had 1 brown bowel movement without gross blood today ( guaiac positive per RN). There's been no abdominal or rectal pain. The patient has no significant indigestion, nausea, or abdominal distention. Allergies/Medications Allergies: Coded Allergies: rabeprazole (PER PT DOESNT REMEMBER 02/08/18) rosuvastatin (NERVOUS 02/08/18) simvastatin (NERVOUS 02/08/18) oxycodone (Intermediate, ITCHING 02/08/18) Home Med List: Apixaban (Eliquis) 2.5 MG TABLET 1 TAB PO BID BLOOD THINNER (Reported) Start taking from 04/11/18 Atorvastatin Calcium (Lipitor) 40 MG TABLET 0.5 TAB PO QPM CHOLESTEROL ( Reported) Calcium Carb & Citrate/Vit D3 (Calcium + D3 ER Tablet) 600 MG CALCIUM-500 UNIT TABLET.ER 1 TAB PO QPM SUPPLEMENT (Reported) PLEASE TAKE ONE TAB AT LEAST 4 HOURS AFTER LEVOTHYROXIN Cyanocobalamin (Vitamin B-12) 1,000 MCG TABLET 1 TAB PO DAILY VITAMIN SUPPORT (Reported) Escitalopram Oxalate (Lexapro) 20 MG TABLET 1 TAB PO DAILY MENTAL HEALTH ( Reported) Ferrous Sulfate (Ferosul) 325 MG (65 MG IRON) TABLET 1 TAB PO DAILY SUPPLEMENT (Reported) PLEASE TAKE 1 TAB AT LEAST 4 HOURS AFTER LEVOTHYROXINE Finasteride 5 MG TABLET 1 TAB PO DAILY PROSTATE (Reported) Furosemide 20 MG TABLET 1 TAB PO DAILY WATER RETENTION (Reported) Levothyroxine Sodium 137 MCG TABLET 1 TAB PO DAILY AC HYPOTHYROIDISM PLEASE TAKE 1 TAB BEFORE BREAKFAST ON AN EMPTY STOMACH Multivitamin (Multiple Vitamins) 1 EACH TABLET 1 TAB PO QPM SUPPLEMENT ( Reported) Omeprazole 20 MG CAPSULE.DR 1 CAP PO BID GI (Reported) Tamsulosin HCl 0.4 MG CAP.ER.24H 1 CAP PO QPM PROSTATE (Reported) Current Medications: Current Medications Sig/Lamar Start time Last Medication Dose Route Stop Time Status Admin Atorvastatin Calcium 20 MG QPM 04/08 2100 AC 04/08 PO 2036 Escitalopram Oxalate 20 MG DAILY 04/09 0900 AC 04/09 PO 09 Finasteride 5 MG DAILY 04/09 0900 AC 04/09 PO 09 Levothyroxine Sodium 0.137 MG DAILY AC 04/09 0700 AC 04/09 PO 0521 Pantoprazole Sodium 0 .STK-MED ONE 04/08 1742 DC IV Pantoprazole Sodium 40 MG DAILY 04/08 1645 AC 04/09 IV 0941 Tamsulosin HCl 0.4 MG QPM 04/08 2100 AC 04/08 PO 2036 Past History Travel History Traveled to [place] past 21 day No Medical History Blood Transfusion Hx: Yes Neurological: NONE EENT: NONE Cardiovascular: AFIB (PAF), hypertension, hyperlipidemia, CARDIAC BLOCKAGES Respiratory: NONE Gastrointestinal: GERD, hiatal hernia (large), umbilical hernia, diverticulosis coli colon adenoma pancreatic cyst- IPMN Hepatic: NONE Renal: chronic kidney disease, PROSTATITIS/BPH Hx UTI bladder diverticulum Musculoskeletal: chronic back pain, degen joint disease Psychiatric: anxiety (mild), depression Endocrine: HYPOTHYROID osteopenia (post HALL) Blood Disorders: anemia (macrocytic) Cancer(s): 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 FATHER, , Age 37; Cause: Accident at workplace. BROTHER, ; Cause: Arteriosclerotic heart disease (ASHD). BROTHER, ; Cause: Arteriosclerotic heart disease (ASHD). BROTHER, ; Cause: Arteriosclerotic heart disease (ASHD). SISTER, ; Cause: CVA (cerebral vascular accident). MOTHER (anemia). , Age 73; Cause: CRF (chronic renal failure). Relation not specified for: colon cancer FH: myocardial infarction FH: pancreatic cancer FHx: stroke Psychosocial History Where Do You Live? Home (sons visits him & brings food) Who Do You Live With? self Services at Home: Home Health Aide, Nursing Primary Language: Yemeni Smoking Status: Former Smoker ETOH Use: denies use Illicit Drug Use: denies illicit drug use Living Will? yes Power of Inspector Subassemblies/HCP? yes Name of POA/HCP: Pt's Shanda [phone] Functional Ability ADLs Independent: dressing, eating, toileting, bathing. Ambulation: independent IADLs Independent: shopping, housework, finances, food prep, telephone, transportation. Needs Assist: medication admin. Exam & Diagnostic Data Vital Signs and I&O Vital Signs Date Time Temp Pulse Resp B/P B/P Pulse O2 O2 Flow FiO2 Mean Ox Delivery Rate 04/09 1503 97.6 69 18 120/42 95 04/09 0945 76 116/60 94 Room Air 04/09 0703 98.2 76 18 108/52 95 Room Air 04/08 2230 98.3 49 18 140/68 96 04/08 2037 72 138/70 04/08 1849 97.5 72 18 142/64 98 Room Air Room Air 04/08 1752 97.8 65 16 145/64 97 Room Air Intake & Output 04/09 0400 04/08 0400 04/07 1600 04/07 0400 Intake Total 600 120 Output Total Balance 600 120 Intake, Oral 600 120 Patient 192 lb 200 lb Weight Weight Reported by Patient Measurement Method Physical Exam: Unrevealing. Abdomen mildly distended, normal bowel sounds; no tenderness, mass or organomegaly. Rectal: Small external hemorrhoids, normal anal canal, no masses/lesions in the vault, light brown stool. Results Pertinent Lab Results: Laboratory Tests 04/09 Chemistry Sodium (137 - 145 mmol/L) 140 Potassium (3.5 - 5.1 mmol/L) 4.0 Chloride (98 - 107 mmol/L) 106 Carbon Dioxide (22 - 30 mmol/L) 25 Anion Gap (5 - 16) 10 BUN (9 - 20 mg/dL) 21 H Creatinine (0.7 - 1.2 mg/dL) 1.6 H Estimated GFR (>60 ml/min) 41 L BUN/Creatinine Ratio (7 - 25 %) 13.1 Hematology CBC w Diff NO MAN DIFF REQ NO MAN DIFF REQ WBC (4.8 - 10.8 /CUMM) 9.3 11.7 H RBC (4.70 - 6.10 /CUMM) 3.04 L 3.23 L Hgb (14.0 - 18.0 G/DL) 8.8 L 9.3 L Hct (42 - 52 %) 27.0 L 28.6 L MCV (80.0 - 94.0 FL) 88.9 88.5 MCH (27.0 - 31.0 PG) 29.1 28.9 MCHC (33.0 - 37.0 G/DL) 32.7 L 32.6 L RDW (11.5 - 14.5 %) 16.8 H 16.7 H Plt Count (130 - 400 /CUMM) 206 245 MPV (7.4 - 10.4 FL) 9.6 9.1 Gran % (42.2 - 75.2 %) 72.8 65.8 Lymphocytes % (20.5 - 51.1 %) 14.3 L 20.4 L Monocytes % (1.7 - 9.3 %) 7.2 7.7 Eosinophils % (0 - 5 %) 5.2 H 5.8 H Basophils % (0.0 - 2.0 %) 0.5 0.3 Absolute Granulocytes (1.4 - 6.5 /CUMM) 6.8 H 7.7 H Absolute Lymphocytes (1.2 - 3.4 /CUMM) 1.3 2.4 Absolute Monocytes (0.10 - 0.60 /CUMM) 0.7 H 0.9 H Absolute Eosinophils (0.0 - 0.7 /CUMM) 0.5 0.7 Absolute Basophils (0.0 - 0.2 /CUMM) 0 0 07/02 1255 Chemistry Sodium (137 - 145 mmol/L) 142 Potassium (3.5 - 5.1 mmol/L) 4.3 Chloride (98 - 107 mmol/L) 104 Carbon Dioxide (22 - 30 mmol/L) 24 Anion Gap (5 - 16) 13 BUN (9 - 20 mg/dL) 24 H Creatinine (0.7 - 1.2 mg/dL) 1.8 H Estimated GFR (>60 ml/min) 36 L BUN/Creatinine Ratio (7 - 25 %) 13.3 Glucose (65 - 99 mg/dL) 116 H Calcium (8.4 - 10.2 mg/dL) 9.0 Troponin I (<0.11 ng/ml) 0.02 Coagulation PT (9.4 - 12.5 SEC) 17.9 H INR (0.90 - 1.17) 1.63 H APTT (25 - 37 SEC) 34 Hematology CBC w Diff NO MAN DIFF REQ WBC (4.8 - 10.8 /CUMM) 11.6 H RBC (4.70 - 6.10 /CUMM) 3.27 L Hgb (14.0 - 18.0 G/DL) 9.6 L Hct (42 - 52 %) 29.1 L MCV (80.0 - 94.0 FL) 88.9 MCH (27.0 - 31.0 PG) 29.2 MCHC (33.0 - 37.0 G/DL) 32.9 L RDW (11.5 - 14.5 %) 16.7 H Plt Count (130 - 400 /CUMM) 256 MPV (7.4 - 10.4 FL) 8.8 Gran % (42.2 - 75.2 %) 66.1 Lymphocytes % (20.5 - 51.1 %) 20.3 L Monocytes % (1.7 - 9.3 %) 9.0 Eosinophils % (0 - 5 %) 4.3 Basophils % (0.0 - 2.0 %) 0.3 Absolute Granulocytes (1.4 - 6.5 /CUMM) 7.7 H Absolute Lymphocytes (1.2 - 3.4 /CUMM) 2.4 Absolute Monocytes (0.10 - 0.60 /CUMM) 1.0 H Absolute Eosinophils (0.0 - 0.7 /CUMM) 0.5 Absolute Basophils (0.0 - 0.2 /CUMM) 0 Assessment/Plan Assessment/Recommendations: Self-limited hematochezia (1 episode), with brown stool today. Most likely represents outlet bleeding (hemorrhoidal), in the setting of constipation. Minor drop in hemoglobin compared to baseline. Recommendations * Regular diet * Fiber supplement daily for 2 weeks * Consider discharge, with outpatient follow-up with Dr. Betts within 2 weeks. Copies To: Alpesh WORLEY,Burt Mckeon; Sofia WORLEY,Rob Enriquez Consult Acknowledgment - Thank you for your consult request.
[2018-04-09 19:39] LABS: ABSOLUTE BASOPHIL COUNT 0 /CUMM (0.0-0.2); ABSOLUTE EOSINOPHIL COUNT 0.5 /CUMM (0.0-0.7); ABSOLUTE GRANULOCYTE CT 8.1 /CUMM (1.4-6.5); ABSOLUTE LYMPH COUNT 2.2 /CUMM (1.2-3.4); ABSOLUTE MONOCYTE COUNT 0.8 /CUMM (0.10-0.60); BASOPHIL % 0.4 % (0.0-2.0); EOSINOPHIL % 4.7 % (0-5); GRANULOCYTE % 68.9 % (42.2-75.2); HEMATOCRIT 30.3 % (42-52); MEAN CORPUSCULAR HGB 28.7 PG (27.0-31.0); MEAN CORPUSCULAR HGB CONC 32.5 G/DL (33.0-37.0); MEAN CORPUSCULAR VOLUME 88.3 FL (80.0-94.0); MEAN PLATELET VOLUME 8.7 FL (7.4-10.4); PLATELET COUNT 279 /CUMM (130-400); RBC DISTRIBUTION WIDTH 16.7 % (11.5-14.5); RED BLOOD CELL CT 3.43 /CUMM (4.70-6.10); WHITE BLOOD CELL COUNT 11.7 /CUMM (4.8-10.8)
[2018-04-09 22:15] VITALS: BP 118/68
[2018-04-10 06:42] VITALS: BP 128/60
[2018-04-10 07:32] LABS: ABSOLUTE BASOPHIL COUNT 0 /CUMM (0.0-0.2); ABSOLUTE EOSINOPHIL COUNT 0.5 /CUMM (0.0-0.7); ABSOLUTE GRANULOCYTE CT 5.7 /CUMM (1.4-6.5); ABSOLUTE LYMPH COUNT 1.6 /CUMM (1.2-3.4); ABSOLUTE MONOCYTE COUNT 0.7 /CUMM (0.10-0.60); BASOPHIL % 0.4 % (0.0-2.0); EOSINOPHIL % 6.2 % (0-5); GRANULOCYTE % 66.2 % (42.2-75.2); HEMATOCRIT 26.3 % (42-52); MEAN CORPUSCULAR HGB 29.1 PG (27.0-31.0); MEAN CORPUSCULAR HGB CONC 32.6 G/DL (33.0-37.0); MEAN CORPUSCULAR VOLUME 89.3 FL (80.0-94.0); MEAN PLATELET VOLUME 9.3 FL (7.4-10.4); PLATELET COUNT 198 /CUMM (130-400); RBC DISTRIBUTION WIDTH 16.9 % (11.5-14.5); RED BLOOD CELL CT 2.95 /CUMM (4.70-6.10); WHITE BLOOD CELL COUNT 8.5 /CUMM (4.8-10.8)
--- NOTE | 2018-04-10 08:08 | PN- Housestaff ---
Agatha Alcantara 04/10/18 0807: Subjective Follow-up For: Bright red lower gi bleed Complaints: no complaints Tele-Events Since Last Visit: On telemetry he is in sinus bradycardia, sinus rhythm with a heart rate of 57- 77. Events recorded a PVCs, bigeminy and first-degree AV block, which were also present on admission. Subjective: Patient has no complaints and no events overnight. he did not have a bowel movement last night. Has not complained of shortness of breath, chest pain, palpitations, abdominal pain, fevers, or chills Review of Systems Constitutional: Reports: no symptoms. Objective Last 24 Hrs of Vital Signs/I&O Vital Signs Date Time Temp Pulse Resp B/P B/P Pulse O2 O2 Flow FiO2 Mean Ox Delivery Rate 04/10 0642 98.3 63 12 128/60 98 Room Air 04/09 2215 98.1 72 16 118/68 99 Room Air 04/09 2134 94 112/50 04/09 1503 97.6 69 18 120/42 95 Intake & Output 04/10 1600 04/10 0800 04/10 0000 Intake Total 220 450 Output Total Balance 220 450 Intake, Oral 220 450 Number 2 Bowel Movements Physical Exam General Appearance: Alert, Oriented X3, Cooperative Skin: keratotic lesions on skin of the back Skin Temp/Moisture Exam: Warm/Dry Sepsis Skin Exam (color): Normal for Ethnicity HEENT: Atraumatic, EOMI Cardiovascular: Regular Rate, systolic murmur Lungs: Clear to Auscultation, Normal Air Movement Abdomen: Normal Bowel Sounds, Soft, No Tenderness Assessment/Plan Assessment: Patient is an 88 years old male with a past medical history of coronary artery disease, BPH, depression, hypothyroidism, A. fib on Eliquis, chronic back pain, renal insufficiency, and macrocytic anemia. His past GI problems include intraductal papillary mucinous neoplasm, large hiatal hernia, hiatal reflux, diverticulosis coli, family history of colon cancer, diastases of rectus sheath, likely hernia, history of gastric polyps and is on 16, hemorrhoids, and bleeding per rectum. His presenting complaint was bright red lower GI bleed. His vitals today are: Afebrile, pulse of 63, respiratory rate 12, BP 128/60, 98% on room air. Plan: #Bleeding per rectum: had a b/m this morning. He did not notice any bright red blood. Guaiac test was done and it was negative. Patient has no complaints. He will follow with GI as an outpatient. #Hemoglobin: Morning his hemoglobin came back to be 8.6. It will be repeated today at 6 PM and will be followed. #Hx a.fib on eliquis: We have started his Eliquis today 2.5 mg per oral twice daily. Patient was on a home dose of 2.5 mg twice daily per oral. Cardiology recommended a dose of 5 mg twice daily po. we will monitor to see if the patient has any GI bleed on restarting Eliquis. #BPH: Tamsulosin and finasteride. #Hx hiatal hernia: Asymptomatic at this time #Aortic stenosis: Asymptomatic at this time. Echo done on April 09 showed a left ventricular ejection fraction of 50%, septal wall disease dyssynchrony, mild mitral regurg, thickened and calcified trileaflet aortic valve with reduced leaflet opening. The mean transvalvular gradient is 40 mmHg. The peak transvalvular gradient is 67 mmHg. Calculated aortic valve area is 1.1. Trace to mild aortic insufficiency. Estimated PA systolic pressure 42 mmHg. #CKD stage III: Patient's creatinine was 1.6. #Possible discharge tomorrow. #Diet: Regular diet #Code status: DNR/DNI #DVT Px: ALPs #Son: I met the son Jair this morning and explained to him the patient's condition and answered all his questions. I called him later in the day to update him about the attending's recommendations. He fully understood and agreed with the plan. Problem List: 1. Bleeding per rectum 2. A-fib Pain Ratin Pain Location: None Pain Goal: Remain pain free Pain Plan: remain pain-free Tomorrow's Labs & Rationales: cbc,bep FadyMaurolindsey 04/10/18 1243: Attending MD Review Statement Attending Statement Attending MD Statement: examined this patient, discuss w/resident/PA/VALVE REPAIRER RECLAMATION, agreed w/resident/PA/VALVE REPAIRER RECLAMATION, discussed with family, reviewed EMR data (avail), discussed with nursing, discussed with case mgmt, reviewed images, amended to note Attending Assessment/Plan: Patient had no bowel movement. He has drifting down hb 9.8>>8.6 this morning. Cardiology and GI consulted during the hospital stay. Trial of resuming eliquis today and follow GI recommendations. Monitor cbc in evening and in am. If remains stable and no more bleeding epsiodes consider discharge tomorrow. Plan of care discussed with patient bedside.
--- NOTE | 2018-04-10 10:27 | PN- Cardiology ---
Subjective Subjective: Feeling well, no acute events overnight. No complaints. Hb relatively stable (i think yesterday's value was not accurate... 8.8--->9.8-- -->8.6). Objective Vital Signs and I&Os Vital Signs Date Time Temp Pulse Resp B/P B/P Pulse O2 O2 Flow FiO2 Mean Ox Delivery Rate 04/10 0642 98.3 63 12 128/60 98 Room Air 04/09 2215 98.1 72 16 118/68 99 Room Air 04/09 2134 94 112/50 04/09 1503 97.6 69 18 120/42 95 Intake & Output 04/10 1600 04/10 0800 04/10 0000 04/09 1600 04/09 0800 04/09 0000 Intake Total 220 450 600 120 Output Total Balance 220 450 600 120 Intake, Oral 220 450 600 120 Number 2 Bowel Movements Patient 192 lb Weight Physical Exam: General: no apparent distress. Neck: Carotids 2+ without bruits. Respiratory: Clear to auscultation, air movement is good Heart: Regular rate and rhythm, 2 out of 6 systolic crescendo decrescendo murmur heard best at the right sternal border, without JVD. Abdomen: Soft, nontender, no masses, normoactive bowel sounds. Extremities: no edema, good capillary refill Current Medications: Current Medications Sig/Lamar Start time Last Medication Dose Route Stop Time Status Admin Atorvastatin Calcium 20 MG QPM 04/08 2100 AC 04/09 PO 2130 Escitalopram Oxalate 20 MG DAILY 04/09 09 AC 04/10 PO 0944 Finasteride 5 MG DAILY 04/09 09 AC 04/10 PO 0944 Levothyroxine Sodium 0.137 MG DAILY AC 04/09 0700 AC 04/10 PO 0648 Pantoprazole Sodium 40 MG DAILY 04/08 1645 AC 04/10 IV 0944 Tamsulosin HCl 0.4 MG QPM 04/08 2100 AC 04/09 PO 2134 Results Last 48 Hrs of Labs/Mics: Laboratory Tests 04/10/18 0620: CBC w Diff NO MAN DIFF REQ, RBC 2.95 L, MCV 89.3, MCH 29.1, MCHC 32.6 L, RDW 16.9 H, MPV 9.3, Gran % 66.2, Lymphocytes % 18.7 L, Monocytes % 8.5, Eosinophils % 6.2 H, Basophils % 0.4, Absolute Granulocytes 5.7, Absolute Lymphocytes 1.6, Absolute Monocytes 0.7 H, Absolute Eosinophils 0.5, Absolute Basophils 0 04/09/18 1920: CBC w Diff NO MAN DIFF REQ, RBC 3.43 L, MCV 88.3, MCH 28.7, MCHC 32.5 L, RDW 16.7 H, MPV 8.7, Gran % 68.9, Lymphocytes % 18.9 L, Monocytes % 7.1, Eosinophils % 4.7, Basophils % 0.4, Absolute Granulocytes 8.1 H, Absolute Lymphocytes 2.2, Absolute Monocytes 0.8 H, Absolute Eosinophils 0.5, Absolute Basophils 0 04/09/18 0615: Anion Gap 10, Estimated GFR 41 L, BUN/Creatinine Ratio 13.1, CBC w Diff NO MAN DIFF REQ, RBC 3.04 L, MCV 88.9, MCH 29.1, MCHC 32.7 L, RDW 16.8 H, MPV 9.6, Gran % 72.8, Lymphocytes % 14.3 L, Monocytes % 7.2, Eosinophils % 5.2 H, Basophils % 0.5, Absolute Granulocytes 6.8 H, Absolute Lymphocytes 1.3, Absolute Monocytes 0.7 H, Absolute Eosinophils 0.5, Absolute Basophils 0 04/08/180: CBC w Diff NO MAN DIFF REQ, RBC 3.23 L, MCV 88.5, MCH 28.9, MCHC 32.6 L, RDW 16.7 H, MPV 9.1, Gran % 65.8, Lymphocytes % 20.4 L, Monocytes % 7.7, Eosinophils % 5.8 H, Basophils % 0.3, Absolute Granulocytes 7.7 H, Absolute Lymphocytes 2.4, Absolute Monocytes 0.9 H, Absolute Eosinophils 0.7, Absolute Basophils 0 04/08/18 1255: Anion Gap 13, Estimated GFR 36 L, BUN/Creatinine Ratio 13.3, Glucose 116 H, Calcium 9.0, Troponin I 0.02, PT 17.9 H, INR 1.63 H, APTT 34, CBC w Diff NO MAN DIFF REQ, RBC 3.27 L, MCV 88.9, MCH 29.2, MCHC 32.9 L, RDW 16.7 H, MPV 8.8, Gran % 66.1, Lymphocytes % 20.3 L, Monocytes % 9.0, Eosinophils % 4.3, Basophils % 0.3, Absolute Granulocytes 7.7 H, Absolute Lymphocytes 2.4, Absolute Monocytes 1.0 H, Absolute Eosinophils 0.5, Absolute Basophils 0 Recent Imaging Studies: ECHOCARDIOGRAM 04/09/2018 Normal LV chamber size with mild to moderate concentric LVH. The estimated LVEF is 50%. There is septal wall dyssynchrony. There is mild mitral regurgitation. Thickened and calcified trileaflet aortic valve with reduced leaflet opening. The mean transvalvular gradient is 40 mmHg. The peak transvalvular gradient is 67 mmHg. The calculated aortic valve area is 1.1. There is trace to mild aortic insufficiency. The estimated PA systolic pressure is 42 mmHg. Assessment/Plan Assessment/Plan Lower GI bleed in patient anticoagulated with eliquis for atrial fibrillation. moderate aortic stenosis. Hb has been stable off eliquis since admission. Continue monitring for the moment. Continue telemetry? Yes
[2018-04-10 14:34] VITALS: BP 100/60
[2018-04-10 18:44] LABS: ABSOLUTE BASOPHIL COUNT 0.1 /CUMM (0.0-0.2); ABSOLUTE EOSINOPHIL COUNT 0.5 /CUMM (0.0-0.7); ABSOLUTE GRANULOCYTE CT 7.7 /CUMM (1.4-6.5); ABSOLUTE MONOCYTE COUNT 0.7 /CUMM (0.10-0.60); BASOPHIL % 0.6 % (0.0-2.0); EOSINOPHIL % 4.8 % (0-5); GRANULOCYTE % 69.6 % (42.2-75.2); MEAN CORPUSCULAR HGB CONC 32.8 G/DL (33.0-37.0); MEAN CORPUSCULAR VOLUME 88.6 FL (80.0-94.0); MEAN PLATELET VOLUME 9.3 FL (7.4-10.4); PLATELET COUNT 238 /CUMM (130-400); RBC DISTRIBUTION WIDTH 16.6 % (11.5-14.5); RED BLOOD CELL CT 3.16 /CUMM (4.70-6.10)
[2018-04-10 22:46] VITALS: BP 112/68
--- NOTE | 2018-04-11 06:35 | PN- Housestaff ---
Agatha Alcantara 04/11/18 0634: Subjective Follow-up For: bright red rectal bleed Complaints: no complaints Tele-Events Since Last Visit: Normal sinus rhythm, first-degree AV block, PVCs, bigeminy heart rate 60-75 Subjective: No complaints/acute events overnight. Patient slept well. Review of Systems Constitutional: Reports: see HPI. Objective Last 24 Hrs of Vital Signs/I&O Vital Signs Date Time Temp Pulse Resp B/P B/P Pulse O2 O2 Flow FiO2 Mean Ox Delivery Rate 04/11 0640 98.7 70 20 140/60 95 Room Air 04/10 2246 97.8 83 18 112/68 96 Room Air Intake & Output 04/11 1600 04/11 0800 07 0000 Intake Total 440 450 Output Total Balance 440 450 Intake, Oral 440 450 Number 0 Bowel Movements Patient 191 lb Weight Physical Exam General Appearance: Alert, Oriented X3, Cooperative, No Acute Distress Skin: No Rashes, No Breakdown, No Significant Lesion Skin Temp/Moisture Exam: Cool/Dry Sepsis Skin Exam (color): Normal for Ethnicity HEENT: Atraumatic Neck: Supple Cardiovascular: Regular Rate, Normal S1, Normal S2 (systolic murmur) Lungs: Clear to Auscultation, Normal Air Movement Abdomen: Normal Bowel Sounds, Soft, No Tenderness Neurological: Normal Speech, Strength at 5/5 X4 Ext Extremities: No Clubbing, No Cyanosis, No Edema Assessment/Plan Assessment: Patient is an 88 years old male with a past medical history of coronary artery disease, BPH, depression, hypothyroidism, A. fib on Eliquis, chronic back pain, renal insufficiency, and macrocytic anemia. His past GI problems include intraductal papillary mucinous neoplasm, large hiatal hernia, hiatal reflux, diverticulosis coli, family history of colon cancer, diastases of rectus sheath, likely hernia, history of gastric polyps and is on 16, hemorrhoids, and bleeding per rectum. His presenting complaint was bright red lower GI bleed. Vitals today: Temp 98.7, pulse 70, respiratory rate 20, blood pressure 140/60, 95% room air. Assessment and plan: -Plan is to discharge the patient today. -Bleeding per rectum: No episode even though he is on Eliquis. He will follow- up with salicylic acid blender next week -BPH: Tamsulosin and finasteride Problem List: 1. BPH (benign prostatic hyperplasia) 2. Hiatal hernia 3. GERD (gastroesophageal reflux disease) 4. Bleeding per rectum 5. A-fib Pain Ratin Pain Location: None Pain Goal: Remain pain free Pain Plan: Remain pain-free Tomorrow's Labs & Rationales: TARIQ Rico MD,Lidia 04/11/18 1145: Attending MD Review Statement Attending Statement Attending MD Statement: examined this patient, discuss w/resident/PA/TEASEL GIG OPERATOR, agreed w/resident/PA/TEASEL GIG OPERATOR, reviewed EMR data (avail), discussed with nursing, discussed with case mgmt, amended to note Attending Assessment/Plan: Patient seen and examined. Resting comfortably and not in acute distress. Admits to having bowel movements from admission. Denies any bright red blood per rectum. His hemoglobin level fluctuates and has been relatively stable during his hospitalization. He was evaluated by the gastroenterology service and recommendations are for outpatient follow-up. He was resumed on his anticoagulation therapy yesterday with no overt bleeding overnight. He will be discharged today with recommendations to follow-up with the gastroenterology service next week for scheduling of endoscopic evaluation. He is also to follow -up with his cardiology service for ongoing management of his known aortic stenosis.
[2018-04-11 06:40] VITALS: BP 140/60
[2018-04-11 07:38] LABS: ABSOLUTE BASOPHIL COUNT 0 /CUMM (0.0-0.2); ABSOLUTE EOSINOPHIL COUNT 0.5 /CUMM (0.0-0.7); ABSOLUTE GRANULOCYTE CT 7.1 /CUMM (1.4-6.5); ABSOLUTE LYMPH COUNT 1.7 /CUMM (1.2-3.4); ABSOLUTE MONOCYTE COUNT 0.9 /CUMM (0.10-0.60); BASOPHIL % 0.3 % (0.0-2.0); EOSINOPHIL % 5.1 % (0-5); GRANULOCYTE % 69.1 % (42.2-75.2); HEMATOCRIT 26.5 % (42-52); MEAN CORPUSCULAR HGB 29.7 PG (27.0-31.0); MEAN CORPUSCULAR HGB CONC 33.3 G/DL (33.0-37.0); MEAN CORPUSCULAR VOLUME 89.1 FL (80.0-94.0); MEAN PLATELET VOLUME 9.2 FL (7.4-10.4); PLATELET COUNT 208 /CUMM (130-400); RBC DISTRIBUTION WIDTH 16.6 % (11.5-14.5); RED BLOOD CELL CT 2.98 /CUMM (4.70-6.10); WHITE BLOOD CELL COUNT 10.2 /CUMM (4.8-10.8)
--- NOTE | 2018-04-11 11:20 | PN- Cardiology ---
Subjective Subjective: Patient feels well this morning with no complaints. Objective Vital Signs and I&Os Vital Signs Date Time Temp Pulse Resp B/P B/P Pulse O2 O2 Flow FiO2 Mean Ox Delivery Rate 04/11 0640 98.7 70 20 140/60 95 Room Air 04/10 2246 97.8 83 18 112/68 96 Room Air 04/10 2047 86 126/58 / 1434 98.2 75 20 100/60 97 Intake & Output 04/11 0000 04/10 0800 04/10 0000 Intake Total 440 450 220 450 Output Total Balance 440 450 220 450 Intake, Oral 440 450 220 450 Number 0 2 Bowel Movements Patient 191 lb Weight Physical Exam: General: no apparent distress. Alert. Eyes: No obvious scleral icterus. HEENT: No jugular venous distention or abnormal jugular venous pulsations. Cardiovascular: Normal intensity S1/S2. 3 out of 6 systolic murmur Respiratory: Lungs clear to auscultation bilaterally. Abdomen: Soft, nontender with no guarding or rebound tenderness. Musculoskeletal: No clubbing or cyanosis noted Skin: warm Neurologic: No gross focal deficits noted. Current Medications: Current Medications Sig/Lamar Start time Last Medication Dose Route Stop Time Status Admin Apixaban 2.5 MG BID 04/10 1128 AC 04/11 PO 914 Atorvastatin Calcium 20 MG QPM 04/08 2100 AC 04/10 PO 2046 Calcium Carbonate 500 MG ONCE ONE 04/10 2100 DC 04/10 PO 04/10 2101 2201 Escitalopram Oxalate 20 MG DAILY 04/09 09 AC 04/11 PO 0915 Finasteride 5 MG DAILY 04/09 09 AC 04/11 PO 0916 Levothyroxine Sodium 0.137 MG DAILY AC 04/09 07 AC 04/11 PO 0620 Pantoprazole Sodium 40 MG DAILY 04/08 1645 AC 04/11 IV 0917 Tamsulosin HCl 0.4 MG QPM 04/08 2100 AC 04/10 PO 2046 Results Last 48 Hrs of Labs/Mics: Laboratory Tests 04/11/18 0645: Anion Gap 8, Estimated GFR 41 L, BUN/Creatinine Ratio 12.5, CBC w Diff NO MAN DIFF REQ, RBC 2.98 L, MCV 89.1, MCH 29.7, MCHC 33.3, RDW 16.6 H, MPV 9.2, Gran % 69.1, Lymphocytes % 17.1 L, Monocytes % 8.4, Eosinophils % 5.1 H, Basophils % 0.3, Absolute Granulocytes 7.1 H, Absolute Lymphocytes 1.7, Absolute Monocytes 0.9 H, Absolute Eosinophils 0.5, Absolute Basophils 0 04/10/18 1800: CBC w Diff NO MAN DIFF REQ, RBC 3.16 L, MCV 88.6, MCH 29.0, MCHC 32.8 L, RDW 16.6 H, MPV 9.3, Gran % 69.6, Lymphocytes % 18.5 L, Monocytes % 6.5, Eosinophils % 4.8, Basophils % 0.6, Absolute Granulocytes 7.7 H, Absolute Lymphocytes 2.0, Absolute Monocytes 0.7 H, Absolute Eosinophils 0.5, Absolute Basophils 0.1 04/10/18 0620: CBC w Diff NO MAN DIFF REQ, RBC 2.95 L, MCV 89.3, MCH 29.1, MCHC 32.6 L, RDW 16.9 H, MPV 9.3, Gran % 66.2, Lymphocytes % 18.7 L, Monocytes % 8.5, Eosinophils % 6.2 H, Basophils % 0.4, Absolute Granulocytes 5.7, Absolute Lymphocytes 1.6, Absolute Monocytes 0.7 H, Absolute Eosinophils 0.5, Absolute Basophils 0 04/09/18 1920: CBC w Diff NO MAN DIFF REQ, RBC 3.43 L, MCV 88.3, MCH 28.7, MCHC 32.5 L, RDW 16.7 H, MPV 8.7, Gran % 68.9, Lymphocytes % 18.9 L, Monocytes % 7.1, Eosinophils % 4.7, Basophils % 0.4, Absolute Granulocytes 8.1 H, Absolute Lymphocytes 2.2, Absolute Monocytes 0.8 H, Absolute Eosinophils 0.5, Absolute Basophils 0 Recent Imaging Studies: Telemetry tracings were personally reviewed and shows sinus rhythm with first- degree AV block Echo Normal LV chamber size with mild to moderate concentric LVH. The estimated LVEF is 50%. There is septal wall dyssynchrony. There is mild mitral regurgitation. Thickened and calcified trileaflet aortic valve with reduced leaflet opening. The mean transvalvular gradient is 40 mmHg. The peak transvalvular gradient is 67 mmHg. The calculated aortic valve area is 1.1. There is trace to mild aortic insufficiency. The estimated PA systolic pressure is 42 mmHg. Brandin Chatman M.D. (Electronically Signed) Final Date: 09 April 2018 11:44 Assessment/Plan Assessment/Plan 1. Lower GI bleed felt possibly hemorrhoidal by GI 2. Paroxysmal atrial fibrillation maintained on Eliquis 3. Known aortic stenosis 4. Chronic renal insufficiency 5. Nonobstructive CAD by history Patient remains hemodynamically stable. Resume twice daily Eliquis if okay with GI. Hemoglobin appears grossly stable. No sustained arrhythmias noted on telemetry. 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 Echocardiogram as above shows aortic stenosis with a mean gradient of 40 mmHg; no clear indication for urgent valve replacement at this time. José Miguel Marshall MD [facility] Continue telemetry? No
== END 2018-04-11 14:05 | disposition home health service (06) | DRG 395 ==
LOC: ERH 12:20 → 1NO 14:45 → ERHI 14:45 → ENRESERV 17:27 → ENTRNSPT 18:20 → EDTRNSPTSTS 18:36 → 1NO 18:47 → CMPTRNSPT 18:54 → 1NO 04-11 07:53 → ENPENDDIS 04-11 10:34 → 1NO 04-11 14:05
PROVIDERS: Internal Medicine; Physician Assistant; Student in an Organized Health Care Education/Training Program
DX: K64.8 Other hemorrhoids (principal); I48.2 Chronic atrial fibrillation; Z79.01 Long term (current) use of anticoagulants; I12.9 Hypertensive chronic kidney disease with stage 1 through stage 4 chronic kidney disease, or unspecified chronic kidney disease; I44.7 Left bundle-branch block, unspecified; I44.0 Atrioventricular block, first degree; N18.3 Chronic kidney disease, stage 3 (moderate); I25.10 Atherosclerotic heart disease of native coronary artery without angina pectoris; N40.0 Benign prostatic hyperplasia without lower urinary tract symptoms; F32.9 Major depressive disorder, single episode, unspecified; E03.9 Hypothyroidism, unspecified; Z88.5 Allergy status to narcotic agent; Z88.8 Allergy status to other drugs, medicaments and biological substances; F41.9 Anxiety disorder, unspecified; D53.9 Nutritional anemia, unspecified; K21.9 Gastro-esophageal reflux disease without esophagitis; E78.5 Hyperlipidemia, unspecified; Z66 Do not resuscitate; K44.9 Diaphragmatic hernia without obstruction or gangrene; I35.0 Nonrheumatic aortic (valve) stenosis; K59.00 Constipation, unspecified
CPT/HCPCS: 1NSP; 36592; 71045; 82436; 93005; 93010; 93306; 99291